=== PATIENT | female | born 1980 | race Caucasian/White ===

== ENCOUNTER 2025-03-13 09:15 | Outpatient (RCR) | payer MEDICARE, SELFPAY ==
[2025-03-10 11:04] VITALS: BP 116/60; PULSE 80; TEMP 37.2
[2025-03-10 11:59] VITALS: BMI 21.1
--- NOTE | 2025-03-10 16:31 | PC.ADMIT ---
Patient is a 44 year old partnered female who was referred to [facility] by [facility] unit where she was admitted from 02/18-02/27/25 secondary to severe depression with SI plan to overdose on prescription medication. As part of her discharge plan from the hospital patient agreed to have her neighbor hold on to her prescription medications as a precaution. 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 Patient reports neurologist placed 3 blind patches that were ineffective. 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 Supports, My brother, some friends, and my therapist. Sees therapist twice a week. Patient also reports she has a girlfriend who she has been seeing for the past two years. Patient is alert and oriented x4. She is calm and cooperative. She presented with depressed mood and affect. She reports passive SI however denied any plan or intent to kill herself. She was given a copy of her safety plan if needed. Patient denied any substance use. Medications updated with patient and discharge medication list which at times omits frequency of pain medication for migraines/GI medications etc. and appears to be redundant. Dr. West is aware.
--- NOTE | 2025-03-11 10:55 | HO.PHP ---
PHP staff member placed a referral for med management through [facility]. Pt. will be emailed with the appointment date and time in 1 to 3 business days.
--- NOTE | 2025-03-11 16:51 | P.HPPSP_ITS ---
HPI Date of Service: 03/10/25 Chief Complaint: bipolar Sources of Information: patient interviewed, chart reviewed and crisis/core team assessment reviewed HPI Narrative: Patient is a 45 yo female with history of Bipolar disorder, Eating disorder, chronic migraines, PCOS, who was referred to IOP as a stepdown from [facility] at [facility] for worsening depression/SI with plan to overdose on medication. Patient reports she had been ?obsessing? over suicidal plan for a month prior to hospitalization. Since discharge from hospital her neighbor has been holding onto her medications as part of her discharge plan. She is dispensed 1 week at a time. She is currently on Lamictal 400 mg as well as BuSpar, nortriptyline, clonazepam. She reports having a really hard time this last week and has been calling PHP to see about coming in earlier. She notes some of her depressive symptoms during to slowly creep back as well as getting ?little bursts of hypomania and experiences some mild paranoia when she is alone. Has a history of unspecified eating disorder with some restricting behaviors which have been more problematic recently and has been seeing a wire coiner. She denies any changes in her weight and has been eating 2 meals a day regularly. She denies any current thoughts of harming herself or others she reports some fleeting passive SI with no intent or plan last Sunday. Past Psychiatric History: [facility] x3: 01/2025; twice in 2003 for anorexia No prior PHP, respite, detox/rehab admissions SA: denies SIB: denies Aggression or antisocial behaviors: denies Denies legal history History of Anorexia with ARFID Psychiatrist: Tracy Buck [employer] Therapist: Irma Robles [facility] PCP:Laura Morrissey CNP Previous trials: Abilify, Zyprexa, Neurontin, Trileptal, prazosin, Seroquel, Anafranil, amitriptyline, Lamictal, Latuda, Prozac, Paxil, Zoloft, Wellbutrin CURRENT MEDICATIONS including: Buspirone 30 mg b.i.d. Lamotrigine 400 mg q.h.s. Latuda 20 mg daily Nortriptyline 100 mg q.h.s. Clonazepam 0.5 mg b.i.d. Metformin 1850 mg/d (split) Trazodone 50 mg q.h.s. 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, spontaneous Migraines Narrative: Seizures: denies Concussions/TBI: denies Nulligravid G0 LMP: IUD Ht: 5'10 Wt: 147 lbs ALL: Topemax, Seroquel, Anafranil, hydroxyzine, Belsomra, olmesartan, oysters, shellfish, nickel Surgical History (Updated 03/10/25 @ 10:54 by Patrizia Coats RN) H/O sinus surgery H/O removal of cyst Social History: Lives alone Substance History: Former smoker x4yrs, quit in 2009 No history of alcohol or illicit substance use Diagnostics Vital Signs (24Hr): BMI result Body Mass Index 21.1 Meds/Allergies Meds Home Medications ?Medication ?Instructions ?Recorded ?Confirmed ?Type bismuth subsalicylate 262 mg 1 tab PO Q1H PRN GI issue s 03/10/25 03/10/25 History chewable tablet buspirone 30 mg tablet 30 mg PO BID 03/10/25 History calcium carbonate 500 mg PO 03/10/25 History dextromethorphan-guaifenesin 30 1 tab PO Q12H PRN Regan estion 03/10/25 03/10/25 History mg-600 mg tablet extended [id number] hr diclofenac potassium 50 mg oral 50 mg PO DAILY PRN Raquel n 03/10/25 03/10/25 History powder packet dihydroergotamine See Rx Instructions .Route . COMPLEX 03/10/25 03/10/25 History famotidine 40 mg tablet 40 mg PO BID 03/10/25 History ketorolac 30 mg/mL (1 mL) 30 mg IM 03/10/25 History injection solution lamotrigine 200 mg tablet 400 mg PO BEDTIME 03/10/25 0 03/10/25 History levetiracetam 500 mg tablet 500 mg PO PRN Migraine Hea dache 03/10/25 History melatonin 5 mg tablet 5 mg PO BEDTIME PRN Insomnia 03/10/25 03/10/25 History metformin 1,000 mg tablet 1,000 mg PO DAILY 03/10/25 0 03/10/25 History metformin 850 mg tablet 850 mg PO DAILY 03/10/2503/26 History minocycline 100 mg capsule See Rx Instructions .Route .COMPLEX 03/10/25 03/10/25 History montelukast 10 mg tablet 10 mg PO DAILY 03/10/25 09/0 03/26 History naproxen sodium 220 mg capsule 220 mg PO BID PRN Pain 03/10/25 03/10/25 History nortriptyline 50 mg capsule 100 mg PO BEDTIME 03/10/25 03/10/25 History ondansetron 8 mg disintegrating 8 mg PO PRN Nausea 03/26 History tablet pantoprazole 40 mg tablet,delayed 40 mg PO BID 5 03/10/25 History release rizatriptan 10 mg tablet 10 mg PO DAILY PRN Headache 03/10/25 03/10/25 History sumatriptan succinate 6 mg/0.5 mL See Rx Instructions .Route .COMPLEX 03/10/25 03/10/25 History subcutaneous cartridge (refill) ubrogepant 100 mg tablet (Ubrelvy) See Rx Instructions .Route .COMPLEX 03/10/25 03/10/25 History Allergies Allergies Allergy/AdvReac Type Severity Reaction Status Date / Time clomipramine Allergy Difficulty Verified 03/10/25 11:02 breathing, dizziness, difficulty urinating. haloperidol (From Haldol) Allergy Unknown Verified 03/11/25 08:48 hydroxyzine Allergy Itching Verified 03/10/25 11:02 nickel Allergy Redness, Verified 03/10/25 11:02 itching, swelling. olmesartan Allergy Palpitation Verified 03/10/25 11:02 s. orphenadrine Allergy itching. Verified 03/10/25 11:02 quetiapine Allergy fainting. Verified 03/10/25 11:02 shellfish derived (shellfish) Allergy Unknown. Verified 03/10/25 11:02 suvorexant Allergy Itching. Verified 03/10/25 11:02 topiramate (From Topamax) Allergy Itching Verified 03/10/25 11:02 Mental Status Exam Mental Status Exam Narrative: Alert, oriented, in no acute distress. Calm, cooperative, engaged. No psychomotor agitation or neurovegetative retardation. Eye contact maintained. Mood depressed, affect dysthymic, blunted without tearfulness or lability. Speech normal, soft, flat without slowing. Thought process linear, coherent, delay in some responses. Thought content related to stressors, +transient hopelessness, +passive SI, denies any intention, urge or plan to harm self. Denies any aggressive ideation or HI. No paranoia or delusional content elicited. No evidence of psychosis. Insight and judgment fair. Assessment & Plan Assessment & Plan (1) Bipolar II disorder: Status: Acute Code(s): F31.81 - Bipolar II disorder (2) PTSD (post-traumatic stress disorder): Status: Acute Code(s): F43.10 - Post-traumatic stress disorder, unspecified Plan Admit to IOP VS reviewed: afebrile, BP 116/60;?80 bpm increase Latuda to 40 mg qd w evening meal continue other regular medications for now Routine lab work as indicated EKG, routine for baseline QTc for medication considerations as indicated UDS as indicated MassPat reviewed Continue to monitor as per protocol Patient educated on: diagnosis and medication risk/benefits Informed Consent: understands Reason for continued partial hosp. stay Substantial Risk for: inability to function and med/psych decompensation Certification I certify that the patient needs IOP Services for a minimum of 9 hours per week of therapeutic services. I certify the patient is experiencing symptoms of such intensity that they are unable to be safely treated in a less intensive setting and would otherwise require admission to a more intensive level of care. Time Spent With Patient Time: Total time managing care of this patient today __60__ minutes.
--- NOTE | 2025-03-12 14:40 | HO.PHP ---
Client case was reviewed and opened in teams.
--- NOTE | 2025-03-12 15:36 | HO.PHP ---
PHP staff member spoke to Mena through [facility] in regards to setting up an appointment for [facility] for med management. The appointment is scheduled for Sunday, March 30, 2025 at 2:30 PM with Shruti Perez in person at [address] [place] [address] in [place], [place] [address] .
--- NOTE | 2025-03-13 18:40 | P.PNPSP_ITS ---
Subjective Subjective Date of Service: 03/13/25 Reason For Visit: bipolar Interim History: Patient seen for follow-up, anticipating discharge at the end of program today.? Says she has work and travel next week, also [employer] holidays approaching. Reports mood is better , says she had only one crying spell last week. No other issues. Says she has not had occurrences of SI so it's been a lot better . She attributes improvements to Latuda, however is still having some side effects, which have been mild this week but persistent - with difficult sleeping and fatigue. She is agreeable to backing dose a few hours earlier in the evening (taking just before supper) and will plan to lower the dose to 30 mg for a week before returning to 40 mg. Has been Reports no acute issues or concerns. Medication compliant, medications well- tolerated. Denies any adverse effects.? Mood is stable.? Denies any hopelessness or SI. Denies thoughts of harming self or others at this time. Denies any aggressive ideation or HI. Denies any paranoia or AH or VH. Sleep, appetite, energy stable. Medication Compliance: Yes Side effects from medications: No Attending Groups: Yes Review of Systems Acute medical concerns: No Mental Status Exam Mental Status Exam Narrative: Alert, oriented, in no acute distress. Calm, cooperative. Mood stable, affect anxious, otherwise appropriate. Speech normal. Thought process linear, coherent. Thought content related to stressors, future-oriented, denies any helplessness, hopelessness or SI.? No aggressive ideation or HI. No paranoia or delusional content elicited. No evidence of psychosis. Insight and judgment fair-good. Diagnostics Vital Signs (24Hr): BMI result Body Mass Index 21.1 Assessment & Plan Assessment & Plan (1) Bipolar II disorder: Status: Acute Code(s): F31.81 - Bipolar II disorder (2) PTSD (post-traumatic stress disorder): Status: Acute Code(s): F43.10 - Post-traumatic stress disorder, unspecified Assessment and Plan: Discharge from [facility] Continue regular medications? Refills sent to pharmacy Will defer further medication management to outpatient provider *Safety plan reviewed *Discharge diagnoses, treatment course, discharge plan have been reviewed with patient (including medication regime, medication management, potential side effects) as well as treatment rationale were also revisited *Discharge paperwork signed and given to patient, copy sent for scanning to chart Plan I certify that the patient needs IOP Services for a minimum of 9 hours per week of therapeutic services. I certify the patient is experiencing symptoms of such intensity that they are unable to be safely treated in a less intensive setting and would otherwise require admission to a more intensive level of care. Patient educated on: diagnosis and medication risk/benefits Informed Consent: understands Reason for contiued partial hosp. stay Substantial Risk for: stable for discharge Certification I certify that the patient needs IOP Services for a minimum of 9 hours per week of therapeutic services. I certify the patient is experiencing symptoms of such intensity that they are unable to be safely treated in a less intensive setting and would otherwise require admission to a more intensive level of care. Total time managing care of this patient today _30___ minutes. Discharge Plan Discharge Attending provider: Nicki West Medications: New lurasidone 40 mg tablet 40 mg PO QPM Qty: 15 0RF Rx Instructions: must administer with food (at least 350 calories) lurasidone 60 mg tablet 30 mg PO QPM 8 Days Qty: 4 0RF Rx Instructions: must administer with food (at least 350 calories) Continued famotidine 40 mg Tablet 40 mg PO BID ketorolac 30 mg/mL (1 mL) solution 30 mg IM buspirone 30 mg Tablet 30 mg PO BID Rx Instructions: take in the AM and mid afternoon. bismuth subsalicylate 262 mg Tablet,Chewable 1 tab PO Q1H PRN (Reason: GI issues) Rx Instructions: do not exceed 16 tabs per 24 hrs calcium carbonate 500 mg calcium (1,250 mg) Tablet,Chewable 500 mg PO Rx Instructions: As needed for heartburn. dextromethorphan-guaifenesin 30-600 mg Tablet Extended Release 12 Hr 1 tab PO Q12H PRN (Reason: Congestion) diclofenac potassium 50 mg Powder In Packet 50 mg PO DAILY PRN (Reason: Pain) Rx Instructions: must be taken on empty stomach with water only lamotrigine 200 mg Tablet 400 mg PO BEDTIME levetiracetam 500 mg Tablet 500 mg PO PRN (Reason: Migraine Headache) metformin 850 mg Tablet 850 mg PO DAILY Rx Instructions: Take with dinner metformin 1,000 mg Tablet 1,000 mg PO DAILY Rx Instructions: Take with breakfast. melatonin 5 mg Tablet 5 mg PO BEDTIME PRN (Reason: Insomnia) minocycline 100 mg Capsule See Rx Instructions .ROUTE .COMPLEX Rx Instructions: See the new instructions. rizatriptan 10 mg Tablet 10 mg PO DAILY PRN (Reason: Headache) sumatriptan succinate 6 mg/0.5 mL Cartridge See Rx Instructions .ROUTE .COMPLEX Rx Instructions: Take o.5 ml under the skin at onset of migraine. May repeat in 2 hours as needed. Max 2 doses in 24 hours. ondansetron 8 mg Tablet,Disintegrating 8 mg PO PRN (Reason: Nausea) Rx Instructions: Take as needed for nausea pantoprazole 40 mg Tablet,Delayed Release (Dr/Ec) 40 mg PO BID montelukast 10 mg Tablet 10 mg PO DAILY nortriptyline 50 mg Capsule 100 mg PO BEDTIME naproxen sodium 220 mg Capsule 220 mg PO BID PRN (Reason: Pain) Ubrelvy 100 mg Tablet See Rx Instructions .ROUTE .COMPLEX Rx Instructions: Take one tablet on onset of migraine may repeat once time in 2 hours. dihydroergotamine 0.725 mg/pump act. (4 mg/mL) [place],Non-Aerosol See Rx Instructions .ROUTE .COMPLEX Rx Instructions: 4 mg by nasal route once at start of headache, can repeat in one hour if needed. Max 2 doses in 24 hours and 3 doses a week. Changed clonazepam 0.5 mg Tablet,Disintegrating 0.5 mg PO TID Qty: 30 0RF Rx Instructions: Two times a day as needed once in the morning and once in the afternoon. Discontinued lurasidone [Latuda] 20 mg Tablet 20 mg PO QPM Rx Instructions: must administer with food (at least 350 calories) trazodone 50 mg Tablet 50 mg PO BEDTIME Stand Alone Forms: Patient Portal Discharge page Patient Education: Depression (ED), Depression (DC) Print Language: Cook Islander
== END 2025-03-13 23:59 | disposition home or self-care (01) ==
LOC: HO.IOP 09:15
PROVIDERS: Visit Provider Psychiatry & Neurology Psychiatry
DX: F31.81 Bipolar II disorder (principal); F43.10 Post-traumatic stress disorder, unspecified; Z79.899 Other long term (current) drug therapy
CPT/HCPCS: 90791; S9480

== ENCOUNTER → 2025-03-13 09:15 | Outpatient (BNV) | payer MEDICARE, MEDICAID, SELFPAY | PROVIDERS: Visit Provider Psychiatry & Neurology Psychiatry | DX: F31.81 Bipolar II disorder (principal); F43.10 Post-traumatic stress disorder, unspecified | CPT/HCPCS: 99213 ==

== ENCOUNTER → 2025-05-04 09:15 | Outpatient (BNV) | payer MEDICARE, MEDICAID, SELFPAY | PROVIDERS: Visit Provider Psychiatry & Neurology Psychiatry | DX: F31.81 Bipolar II disorder (principal); F43.10 Post-traumatic stress disorder, unspecified; F50.9 Eating disorder, unspecified | CPT/HCPCS: 90792 ==

== ENCOUNTER → 2025-05-15 12:42 | Outpatient (REF) | payer MEDICARE, MEDICAID, SELFPAY ==
--- NOTE | 2025-05-15 12:51 | ECG_ITS ---
Test Reason : R/O QTC PROLONGNATION Blood Pressure : */* mmHG Vent. Rate : 79 BPM Atrial Rate : 79 BPM P-R Int : 164 ms QRS Dur : 88 ms QT Int : 390 ms P-R-T Axes : 73 88 55 degrees QTcB Int : 447 ms Normal sinus rhythm Normal ECG No previous ECGs available Referred By: Nicki West Electronically Signed By: DAVID FLETCHER MD
[2025-05-15 13:09] LABS: MANUAL DIFF FLAG NO
[2025-05-15 13:38] LABS: Hematocrit 35.7 % (37.0-47.0); Hemoglobin 11.2 g/dl (12.0-16.0); Imm Gran Abs Auto 0.01 X10*3/uL (0.00-0.03); Imm Gran Pct Auto 0.2 % (0.0-0.4); Lymphocytes Absolute Auto 1.7 X10*3/uL (1.2-4.9); Mean Corpuscular HGB Conc 31.4 g/dl (31.0-35.0); Mean Corpuscular Hemoglobin 27.0 pg (27.0-33.0); Mean Corpuscular Volume 86.0 fL (80.0-98.0); NRBC Abs Auto 0.000 X10*3/uL (0.0-0.012); NRBC Pct Auto 0.0 /100WBC (0.0-0.2); Platelet Count 334 X10*3/uL (160-400); Red Blood Count 4.15 X10*6/uL (4.20-5.50); White Blood Count 5.3 X10*3/uL (4.8-10.8)
[2025-05-15 14:14] LABS: Anion Gap 12 (12-20); Blood Urea Nitrogen 12 mg/dL (9-16); Carbon Dioxide 30 mmol/L (22-29); Chloride 103 mmol/L (96-108); Estimated Glomerular Filt Rate > 60; Potassium 3.7 mmol/L (3.3-5.1); Sodium 141 mmol/L (135-145)
[2025-05-15 14:15] LABS: Alanine Aminotransferase 20 U/L (0-31); Albumin Level 4.9 g/dL (3.5-5.0); Alkaline Phosphatase 70 U/L (39-117); Aspartate Amino Transferase 29 U/L (5-31); Calcium 9.6 mg/dL (8.4-10.2); Iron 48 mcg/dL (30-160); Magnesium 2.0 mg/dL (1.6-2.6); Percent Iron Saturation 13 % (15-50); Total Iron Binding Capacity 356 mcg/dL (228-428); Total Protein 7.7 g/dL (6.5-8.0); Unsaturated Iron Binding 308 ug/dL
[2025-05-15 14:23] LABS: Free T4 (Free Thyroxine) 1.03 ng/dL (0.71-1.85); Thyroid Stimulating Hormone 2.89 uIU/mL (0.32-4.0)
[2025-05-15 14:29] LABS: Folate 13.0 ng/mL (> or = 4.0); Vitamin B12 293 pg/mL (200-900)
[2025-05-15 15:00] LABS: Syphilis Screen Nonreactive (Nonreactive)
--- OUTSIDE RECORDS SUMMARY | 2025-05-15 18:35 | XMS_ITS | Encounter Summary ---
Author Organization [facility] Address [address] [place] [address] Care Team Providers Care Toggler Name Role Phone DagoLinwood ELLIE Primary Care Provider [phone] Encounter Details Date Type Department Care Team (Late st Contact Info) Description 05/05/2024 Scanned Document [facility] [address] [facility] [address] [place] [id number] Rebecca Garcia MD [address] [facility] [address] [place] [address] Social History Tobacco Use Types Packs/Day Years Used Date Smoking Tobacco: Former Cigarettes Smokeless Tobacco: Never Alcohol Use Standard Drinks/Week Comments Never 0 (1 standard drink = 0.6 oz pur e alcohol) PHQ-2 Answer Date Recorded PHQ-2 Total Score 2 04/30/2024 [facility] [place] of Occupat ional Health - Occupational Stress Questionnaire Answer Date Recorded Do you feel stress - tense, restless, nervous, or anxious, or unable to sleep at night because your mind is troubled all the time - these days? To some extent 04/30/2024 Physical Activity Answer Date Recorded On average, how many days pe r week do you engage in moderate to strenuous exercise (like a brisk walk)? 0 days 04/30/2024 On average, how many minutes do you exercise per day at this level? 0 min 04/30/2024 Comments No Sex and Gender Information Value Date Recorded Sex Assigned at Female 04/28/2024 11:08 PM EDT Legal Sex Female 3:48 PM EDT Gender Identity Female 04/28/2024 11:08 PM EDT Sexual Orientation Homosexual (lesbian or nelson) 1 11:08 PM EDT documented as of this encounter Plan of Treatment Not on file documented as of this encounter Visit Diagnoses Not on filedocumented in this encounter Care Teams Toggler Relationship Specialty Start Date End Date Linwood Loza NP [address] [place] [address] PCP - General 03/12/24 documented as of this encounter
--- OUTSIDE RECORDS SUMMARY | 2025-05-15 18:35 | XMS_ITS | Encounter Summary ---
Author Organization [facility] Address [address] [place] [address] Care Team Providers Care Fur Blower Name Role Phone Linwood Loza NP Primary Care Provider [phone] Encounter Details Date Type Department Care Team (Late st Contact Info) Description 04/04/2024 Scanned Document [facility] [address] [facility] [address] [place] [address] Rebecca Garcia MD [address] [facility] [place] [address] [place] [address] Social History Tobacco Use Types Packs/Day Years Used Date Smoking Tobacco: Never Assessed Comments Unknown Sex and Gender Information Value Date Recorded [...] on filedocumented in this encounter Care Teams Fur Blower Relationship Specialty Start Date End Date Linwood Loza NP [address] [place] [address] PCP - General 03/12/24 documented as of this encounter
--- OUTSIDE RECORDS SUMMARY | 2025-05-15 18:36 | XMS_ITS | Encounter Summary ---
Author Organization [facility] Address [address] [place] [address] Care Team Providers Care Global Clinical Leader Name Role Phone DagoLinwood ELLIE Primary Care Provider [phone] Encounter Details Date Type Department Care Team (Late st Contact Info) Description 07/24/[address] [facility] [address] [facility] [address] [place] [id number] Rebecca Garcia MD [address] [facility] [address] [place] [address] Social History Tobacco Use Types Packs/Day Years Used Date Smoking Tobacco: Former Cigarettes Smokeless Tobacco: Never Comments:Quit 2005 Alcohol Use Standard Drinks/Week Comments Never 0 (1 standard drink = 0.6 oz pur e alcohol) PHQ-2 Answer Date Recorded PHQ-2 Total Score 2 05/17/2024 [employer] [place] of Occupat ional Health - Occupational Stress [...] on filedocumented in this encounter Care Teams Global Clinical Leader Relationship Specialty Start Date End Date Linwood Loza NP [address] [place] [address] PCP - General 03/12/24 documented as of this encounter
--- OUTSIDE RECORDS SUMMARY | 2025-05-15 18:36 | XMS_ITS | Encounter Summary ---
Author Organization [facility] Address [address] [facility] [address] [place] [address] Phone Care Team Providers Care Social Media Marketing Analyst Name Role Phone Cindy Mansfield ACO COORDINATOR Primary Care Provider + Laura Deras ACO COORDINATOR Primary Care Provider + Denisse Barreto PA-C Unavailable [phone] Laura Deras ACO COORDINATOR Primary Care Provider + Encounter Details Date Type Department Care Team (Late st Contact Info) Description 08/08/2024 [facility] [address] [place], [place] [id number] Social History Tobacco Use Types Packs/Day Years Used Date Smoking Tobacco: Former Cigarettes Q uit: 2004 Smokeless Tobacco: Never Alcohol Use Standard Drinks/Week Comments Not Currently 0 (1 standard drink = 0.6 oz pur e alcohol) Child or Family Care Answer Date Record ed Do you have problems with on e of the following making it difficult for you to work, study, or receive health care? No 06/15/2024 Education Answer Date Recorded Are you interested in help w ith more adult education (for example, completing high school, GED, job training, learning the Maltese language, technical skills, or developing parenting skills)? No 06/15/2024 Are you concerned about learning? Not on file 06/15/2024 No 06/15/2024 Yes 06/15/2024 Food Answer Date Recorded Within the past 6 months we worried whether our food would run out before we got money to buy more. Sometimes True 024 Within the past 6 months the food we bought just didn't last and we didn't have enough money to get more. Never True 06/01 Residential Stability Answer Date Recor ded What is your housing situation today? I have a place to live today, but I am worried about losing it in the next 3 months 06/15/2024 How many times have you move d in the past 12 months? Zero (I did not move) 06/15/2024 Paying for Meds Answer Date Recorded Do you have trouble paying for medicines? No 06/15/2024 Paying Utility Bills Answer Date Record ed Do you have trouble paying your heating or elect ricity bill? Yes 06/15/2024 Transportation Answer Date Recorded Has the lack of transportati on kept you from medical appointments or from getting medications? No 06/15/2024 Unemployment Answer Date Recorded Are you currently unemployed or working on a part-time or temporary basis, and looking for work? No 06/15/2024 Digital Access Answer Date Recorded No 06/15/2024 Yes 06/15/2024 Do you have reliable internet access at home? Ye s 06/15/2024 Do you have a device (e.g., phone, tablet, computer) with a working camera? Yes 06/15/2024 Intimate Partner Violence Answer Date R ecorded Are you denied basic needs s uch as food, clothing, or medical care? No 06/30/2024 In the past 12 months have y ou been in a relationship with a person who hurts, threatens, or tries to control you? No 06/30/2024 Are you denied basic needs s uch as food, clothing, or medical care? No 06/30/2024 In the past 12 months have y ou been in a relationship with a person who hurts, threatens, or tries to control you? No 06/30/2024 Comments No Sex and Gender Information Value Date Recorded Sex Assigned at Not on file Legal Sex Female 2:43 PM EDT Gender Identity Not on file Sexual Orientation Not on file documented as of this encounter Plan of Treatment Upcoming Encounters Date Type Department Care Team (Late st Contact Info) Description 07/13/2025 2:30 PM EST Office Visit [facility] [address] [place] [id number] Unknown, Unknown, Rebecca Farmer, CHIEF RADIOLOGIC TECHNOLOGIST [address] [place] [address] 11/16/2025 10:15 AM EDT Office Visit [facility] [address] [facility] 3rd Floor, [address] [place] [address] Andrews Brown DO [address] [facility] [address] [place] [address] documented as of this encounter Visit Diagnoses Not on filedocumented in this encounter Additional Health Concerns Assessment Noted Time PHQ-2 Depression Total Score: 2 06/30/20 24 12:52 PM EST documented as of this encounter Care Teams Social Media Marketing Analyst Relationship Specialty Start Date End Date Cindy Mansfield NP [address] [place] [phone] PCP - General Nurse Practitioner 06/20/24 08/31/24 Laura Deras NP [address] [place] [address] PCP - General Nurse Practitioner 09/04/24 02/16/25 Laura Deras NP [address] [address] PCP - General Nurse Practitioner 02/17/25 Denisse Barreto PA-C [address] [place] [address] Physician Nozzle And Sleeve Worker Physician Nozzle And Sleeve Worker 11/05/24 documented as of this encounter Additional Source Comments The information contained in this document represents components of the legal health record. It is not the complete legal health record.[facility]
--- OUTSIDE RECORDS SUMMARY | 2025-05-15 18:36 | XMS_ITS | Clinical Summary ---
Author Organization [facility] Address [address] [place] [address] Care Team Providers Care Ecological Technical Officer Name Role Phone Dago Linwood ELLIE Primary Care Provider Allergies Active Allergy Reactions Criticality Noted Date Comments Clomipramine Unknown/Patient and Family Unable to Define Medium 04/30/2024 Olmesartan Unknown/Patient and Family Unable to Define Medium 04/30/2024 Hydroxyzine Itching Low 01/03/2021 Nickel Unknown/Patient and Family Unable to Define,Rash/Dermatit is Medium 10/11/2021 + allergy skin test Other Reaction(s): Not available + allergy skin test Orphenadrine Hives,Itching,Other (See Comments) Medium 07/09/2013 Quetiapine Anaphylaxis,GI Intolerance/Nausea/V omiting,Hives,Unknow n/Patient and Family Unable to Define,Other (See Comments) High 06/20/2012 I fainted. Other reaction(s): Other (See Comments) fainted fainted fainted Other Reaction(s): Not available FAINTING fainted fainted I fainted. Other reaction(s): Other (See Comments) fainted fainted FAINTING fainted Seroquel Quetiapine Fumarate Other (See Comments) 2023 fainted Shellfish Protein-Containing Drug Products Other (See Comments) Low 10/06/2021 Suvorexant Other (See Comments) Low 06/17/2024 Topiramate Unknown/Patient and Family Unable to Define Medium 04/30/2024 Medications levocetirizine (XYZAL) 5 MG tablet TAKE 1 TABLET BY MOUTH EVERY DAY NEEDED FOR ITCHING 09/27/202 4 Active metFORMIN (GLUCOPHAGE) 1000 MG tablet Take 1 tablet (1,000 mg total) by mouth. Active metFORMIN (GLUCOPHAGE) 850 MG tablet Take 1 tablet (850 mg total) by mouth. 4 Active minocycline (MINOCIN) 100 MG capsule 2 capsules (200 mg total). 4 Active montelukast (SINGULAIR) 10 MG tablet Take 1 tablet (10 mg total) by mouth. Active nortriptyline (PAMELOR) 50 MG capsule Take 2 capsules (100 mg total) by mouth. 4 Active onabotulinum Toxin Type A (BOTOX) 200 units Recon Soln injection every 12 (twelve) weeks. Active B-D 3CC LUER-JOSEF SYR 45GK6-9/2 22G X 1-1/2 3 ML Misc TO BE USED WITH KETOROLAC 4 Active Ubrelvy 100 MG tablet TAKE 1 TABLET BY MOUTH AT ONSET. MAY REPEAT 1 TIME IN 2 HOURS 4 Active busPIRone (BUSPAR) 30 MG tablet Take 1 tablet (30 mg total) by mouth 2 times a day. 4 Active lamoTRIgine (LaMICtal) 200 MG tablet Take 2 tablets (400 mg total) by mouth. Total 350mg daily 4 Active levETIRAcetam (KEPPRA) 250 MG tablet Take 1.5 tablets (375 mg total) by mouth Once before discharge. 4 Active naproxen sodium (ALEVE) 220 mg tablet Take 1 tablet (220 mg total) by mouth Once before discharge. Active PANTOprazole (PROTONIX) 40 MG EC tablet Take 1 tablet (40 mg total) by mouth 2 times a day. 4 Active rizatriptan (MAXALT) 10 MG tablet Take 1 tablet (10 mg total) by mouth daily as needed. Active SUMAtriptan succinate (IMITREX STATDOSE) 6 MG/0.5ML injection ADMINISTER 0.5 ML UNDER THE SKIN AT ONSET OF MIGRAINE. MAY REPEAT IN 2 HOURS NEEDED. MAX 2 DOSES IN 24 HOURS 4 Active Multiple Vitamin (Multi-Vitamin) tablet Take 1 tablet by mouth daily. Active LORazepam (ATIVAN) 1 MG tablet Take 1 tablet (1 mg total) by mouth 4 times daily (every 6 hours) as needed. Active levonorgestrel (Mirena, 52 MG,) 20 mcg/24hr IUD 1 Intra Uterine Device. 4 Active hydrocortisone 2.5 % cream APPLY A THIN LAYER TO THE AFFECTED AREA(S) OF THE FACE BY TOPICAL ROUTE 2 TIMES PER DAY X 10 DAYS 4 Active famotidine (PEPCID) 20 MG tablet Take 1 tablet (20 mg total) by mouth 2 times a day. 4 Active ketorolac (TORADOL) 30 MG/ML injection 4 Active albuterol (PROVENTIL HFA; VENTOLIN HFA) 108 (90 Base) MCG/ACT inhaler Inhale 2 puffs Once before discharge. Active clonazePAM (KlonoPIN) 0.5 MG disintegrating tablet Take 1 tablet (0.5 mg total) by mouth. Active dextromethorphan-g uaiFENesin (MUCINEX DM) 30-600 MG per 12 hr tablet Take 1 tablet by mouth every 12 hours. Active diclofenac potassium (CAMBIA) 50 MG packet USE 1 PACKET AND MIX WITH GLASS OF WATER TO DRINK EVERY 8 HOURS NEEDED 4 Active Dihydroergotamine Mesylate HFA (Trudhesa) 0.725 MG/ACT Aero Soln 1 spray (0.725 mg) into each nostril (total of 2 sprays per dose); may repeat as needed after 1 hour for a total of 4 sprays (2 doses). Maximum: 4 sprays (2 doses) per 24 hours. This is for 90 day supply 4 Active lurasidone (LATUDA) 20 MG Tab tablet Take 1 tablet (20 mg total) by mouth. 5 Active dihydroergotamine (DHE) 1 MG/ML injection 5 Active ondansetron (ZOFRAN) 8 MG tablet Take 1 tablet (8 mg total) by mouth every 8 hours as needed for nausea 5 Active Hospital, Clinic, or Other Facility Administered Medication Ordered Dose Route Frequency Start Date End Date Status onabotulinum Toxin Type A (BOTOX) 200 units injection 200 UnitsIndications:Chronic migraine without aura, intractable, without status migrainosus 200 Units ID Once 04/23/2025 04/23/2025 Ended Active Problems No known active problems Encounters Date Type Department Care Team Description 04/23/2025 1:40 PM EDT Procedure visit [address] [place] [address] Samanta Gilbert PA-C Chronic migraine without aura, intractable, without status migrainosus (Primary Dx) 04/23/2025 Travel 03/05/2025 11:00 AM EDT Telemedicine [address] [place] [address] Rebecca Garcia MD Chronic migraine without aura, intractable, without status migrainosus (Primary Dx); CSF leak; Positional headache; EDS (Ute-Danlos syndrome) ; Migraine with aura, intractable, without status migrainosus ; Medication overuse headache 03/05/2025 Travel from Last 3 Months Social History Tobacco Use Types Packs/Day Years Used Date Smoking Tobacco: Former Cigarettes Smokeless Tobacco: Never Tobacco Cessation:Counseling Given: Not Answered Comments:Quit 2005 Alcohol Use Standard Drinks/Week Comments Never 0 (1 standard drink = 0.6 oz pur e alcohol) PHQ-2 Answer Date Recorded PHQ-2 Total Score 4 03/04/2025 [facility] [place] of Occupat ional Health - Occupational Stress [...] (lesbian or nelson) 1 11:08 PM EDT Last Filed Vital Signs Vital Sign Reading Time Taken Comments Blood Pressure 126/76 04/23/2025 1:43 PM EDT Pulse 94 04/23/2025 1:43 PM EDT Temperature 36.9 C (98.5 F) 11/11/2024 11:20 AM EDT Respiratory Rate 18 04/23/2025 1:43 PM EDT Oxygen Saturation 99% 04/23/2025 1:43 PM EDT Inhaled Oxygen Concentration - - Weight 64.4 kg (142 lb) 04/23/2025 1:43 PM EDT Height 175.3 cm (5' 9 ) 01/15/2025 1:59 PM EDT Body Mass Index 20.97 01/15/2025 1:59 PM EDT Plan of Treatment Health Maintenance Due Date Last Done Comments Hepatitis C Virus Screening 1979 DTaP/Tdap/Td Vaccines (1 - Tdap) 1998 Hepatitis B Vaccines (1 of 3 - 19+ 3-dose series) 1998 Pneumococcal Vaccine: Pediat tanna (0-5 Years) and At-Risk Patients (6 to 49 Years) (1 of 2 - PCV) 1998 Pap Smear (Ages 21-65) 2000 Mammogram 2019 Colonoscopy 2024 Influenza Vaccine 01/30/2025 03/17/2024, , 02/28/2021, Additional history exists COVID-19 Vaccine ( - 2024-2 6 season) 2025 04/28/2021, 08/17/2020, 07/20/2020 HIV Screening Completed 06/30/2024 Insurance MEDICARE PART A & B [facility] Care Teams Ecological Technical Officer Relationship Specialty Start Date End Date Linwood Loza NP [address] [place] [address] PCP - General 03/12/24
--- OUTSIDE RECORDS SUMMARY | 2025-05-15 18:36 | XMS_ITS | Clinical Summary ---
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 Name Role Phone Denisse Barreto PA-C Unavailable [phone] Laura Deras NP Primary Care Provider + Allergies Active Allergy Reactions Criticality Noted Date Comments Clomipramine GI Upset Medium 04/24/2024 Other Reaction(s): Unknown/Patient and Family Unable to Define Hydroxyzine Itching 01/03/2021 Nickel Rash Low 10/11/2021 Other Reaction(s): Not available + allergy skin test Olmesartan Unknown,Palpitations ,Rash High 07/09/2013 Other Reaction(s): Not available Orphenadrine Hives,Itching,Other (See Comments) Medium 07/09/2013 Quetiapine Anaphylaxis,Hives,Un known,Other (See Comments),GI Upset High 06/20/2012 Other Reaction(s): Not available FAINTING fainted fainted I fainted. Other reaction(s): Other (See Comments) fainted fainted Shellfish Containing Products Unknown 10/06/2021 Other Reaction(s): Other (see comments) Tested + on allergy testing Suvorexant Itching Low 10/08/2020 Other Reaction(s): Not available Topiramate Hives,Itching,Rash Medium 06/20/2012 Other Reaction(s): Unknown/Patient and Family Unable to Define Medications * This document contains information received from the source organization and may not represent a complete record from that organization. diclofenac potassium (CAMBIA) 50 mg PwPk daily as needed. 03/24/20 Active TRUDHESA 0.725 mg/pump act. (4 mg/mL) Nittany 02/21/20 Active ketorolac (TORADOL) 30 mg/mL (1 mL) injection as needed. 03/24/20 Active nortriptyline (PAMELOR) 50 MG capsule Take 100 mg by mouth nightly at bedtime. Active montelukast (SINGULAIR) 10 mg tablet Take 1 tablet by mouth every morning. 04/22/20 Active minocycline (MINOCIN) 100 MG capsule 04/15/20 Active pantoprazole (PROTONIX) 40 MG tablet Take 1 tablet by mouth 2 (two) times a day. 04/21/20 Active rizatriptan (MAXALT) 10 MG tablet Take 10 mg by mouth as needed. 03/24/20 Active SUMAtriptan succinate (IMITREX) 6 mg/0.5 mL PnIj ADMINISTER 0.5 ML UNDER THE SKIN AT ONSET OF MIGRAINE. MAY REPEAT IN 2 HOURS NEEDED. MAX 2 DOSES IN 24 HOURS 03/25/20 Active BD LUER-JOSEF SYRINGE 3 mL 22 x 1 1/2 Syrg TO BE USED WITH KETOROLAC 02/08/20 Active UBRELVY 100 mg tablet TAKE 1 TABLET BY MOUTH AT ONSET. MAY REPEAT 1 TIME IN 2 HOURS 04/13/20 Active dextromethorphan-g uaiFENesin (MUCINEX DM) 30-600 mg per 12 hr tablet Take 1 tablet by mouth every 12 (twelve) hours. Active levonorgestreL (MIRENA) 21 mcg/24hr (up to 8 yrs) 52 mg intrauterine device 1 Device by Intrauterine route. Active albuterol 90 mcg/actuation inhaler Inhale 2 puffs into the lungs as needed for wheezing or shortness of breath/dyspnea. Active naproxen sodium (ALEVE) 220 MG tablet Take 220 mg by mouth as needed for pain (specific location in comments), headache or fever. Active safety needles (BD SAFETYGLIDE NEEDLE) 22 gauge x 1 1/2 Ndle To be used with ketorolac. 11/16/19 Active ondansetron (ZOFRAN-ODT) 8 MG disintegrating tablet Take 8 mg by mouth as needed for nausea. Active clonazePAM (KLONOPIN) 0.5 MG disintegrating tablet Take 0.5 mg by mouth 2 (two) times a day (once in the morning and once in the afternoon). Active dihydroergotamine 0.725 mg/pump act. (4 mg/mL) SpryIndications:mi graine 4 mg by Nasal route once. At start of headache, can repeat in 1 hour if needed max 2 doses in 24hrs and 3 dose/week Indications: a migraine headache Active calcium carbonate 500 mg (200 mg elemental) chewable tablet Take 1 tablet by mouth as needed for heartburn. Active bismuth subsalicylate 262 mg Chew Take 524 mg by mouth every hour as needed. Active busPIRone (BUSPAR) 30 MG tablet Take 1 tablet (30 mg total) by mouth 2 (two) times a day. In AM and mid afternoon 02/28/20 Active famotidine (PEPCID) 40 MG tablet Take 1 tablet (40 mg total) by mouth 2 (two) times a day. 02/28/20 Active lamoTRIgine (LAMICTAL) 200 MG IMMEDIATE release tablet Take 2 tablets (400 mg total) by mouth nightly at bedtime. 28 tablet 1 02/28/20 25 Active metFORMIN (GLUCOPHAGE) 1000 MG tablet Take 1 tablet (1,000 mg total) by mouth daily with breakfast. 02/28/20 25 Active metFORMIN (GLUCOPHAGE) 850 MG tablet Take 1 tablet (850 mg total) by mouth daily with dinner. 02/28/20 25 Active levETIRAcetam (KEPPRA) 500 MG tablet Take 1 tablet (500 mg total) by mouth as needed (migraine). 02/28/20 25 Active lurasidone (LATUDA) 20 mg tablet Take 1 tablet (20 mg total) by mouth daily with dinner. 14 tablet 1 02/28/20 25 Active melatonin 5 mg Tab Take 1 tablet (5 mg total) by mouth nightly at bedtime as needed (Insomnia first line). 14 tablet 1 02/28/20 25 Active traZODone (DESYREL) 50 MG tablet Take 1 tablet (50 mg total) by mouth nightly at bedtime. 14 tablet 1 02/28/20 25 Active Active Problems Problem Noted Date Diagnosed Date Mental health problem 02/17/2025 Bipolar disorder, current episode depressed, sev ere 02/17/2025 Lower extremity edema 11/14/2024 Assessment & Plan (11/14/2024 10:41 AM EDT): I suggested wearing 20 to 30 mm knee-high stockings. I will follow-up with the patient in 1 years time Iron deficiency anemia 07/04/2024 Assessment & Plan (07/04/2024 4:41 PM EST): Has taken PO supplements in the past with many side effects. Discussed iron transfusion to which she is amenable. Side effects and possible complications discussed. Order placed for med day stay and therapy plan for iron transfusion was initiated, she signed a consent while in office. I would like to further investigate the cause of her anemia, referral placed for hematology and I will evaluate for hemolytic anemia or bone marrow deficiency. 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 Managed by dermatology. Lichen sclerosus 06/30/2024 Esophageal dysmotility 06/30/2024 Nonrheumatic mitral valve regurgitation 06/30/20 24 Assessment & Plan (11/14/2024 10:40 AM EDT): This patient has trace to mild mitral and trace tricuspid insufficiency. These are essentially within normal limits EF is normal and there is no evidence of significant aneurysmal disease Assessment & Plan (08/08/2024 10:27 AM EST): As mentioned sure she had a last echo done 3 years ago I have updated this. Assessment & Plan (06/30/2024 5:37 PM EST): Previously managed by Cardiology in [place] and [place]. Referral placed for cardiology locally. Will check lipid panel today. Orders: Ambulatory referral to [facility] Cardiology Mild episode of recurrent major depressive disor jennifer 06/30/2024 Assessment & Plan (06/30/2024 5:37 PM EST): Managed by psychiatry but is interested in a different psychiatrist. Discussed our behavioral health services for short-term management while she establishes elsewhere. Orders: Ambulatory referral to [facility] Behavioral Health Anxiety 06/30/2024 Assessment & Plan (08/08/2024 10:28 AM EST): Definitely present here but stable Assessment & Plan (06/30/2024 5:37 PM EST): Currently stable. Managed by psychiatry. Orders: Ambulatory referral to [facility] Behavioral Health Avoidant-restrictive food intake disorder (ARFID ) 06/30/2024 Irritable bowel syndrome with diarrhea Assessment & Plan (06/30/2024 5:37 PM EST): Currently stable. Managed by GI. Mild intermittent asthma without complication Assessment & Plan (08/08/2024 10:28 AM EST): Present but totally stable Assessment & Plan (06/30/2024 5:37 PM EST): Currently stable on current meds. Endometriosis 06/30/2024 CSF leak 06/30/2024 Assessment & Plan (08/08/2024 10:28 AM EST): This patient had a repair for CSF leak Assessment & Plan (06/30/2024 5:37 PM EST): Has blood patch scheduled for next month. Managed by a specialist Encounters * This document contains information received from the source organization and may not represent a complete record from that organization. Date Type Department Care Team Description 03/06/2025 10:45 AM EDT Office Visit [facility] [address] [place] [id number] Cindy Mansfield, ASSISTANT DIRECTOR OF PLANT OPERATIONS Jasmeet Trinidad, PT Stress incontinence (Primary Dx); Generalized weakness from Last 3 Months Immunizations Immunization Administration Dates Next Due COVID-19 (Pre-04/23) Moderna Vaccine, mRNA, PF 04/28/2021,08/17/2020,07/20/2020 HPV9 07/17/2024,03/17/2024,01/08/2024 Influenza Quadrivalent Preservative Free IM 04/02,03/27/2018 Influenza Quadrivalent w/ Preservative IM 2020,03/15/2020,04/21/2019 Influenza Trivalent MDCK Pre servative Free IM 03/17/2024 Influenza, Unspecified Formulation 05/02/2022 PPD Test 11/24/2016 Tdap 02/04/2019 Family History Medical History Relation Comments Anxiety disorder Brother 1 Depression Brother 1 Anxiety disorder Brother 2 Depression Brother 2 Anxiety disorder Brother 3 Depression Brother 3 Depression Brother 4 Aortic aneurysm Father OCD Spectrum disorder Father Transient ischemic attack Maternal Grandfather Breast cancer Maternal Grandmother Breast cancer Mother Hyperlipidemia Mother Hypertension Mother Osteoarthritis Mother Rheumatoid arthritis Mother Anxiety disorder Sister Depression Sister Relation Status Comments Brother 1 Brother 2 Alive Brother 3 Alive Brother 4 Alive Father Maternal Grandfather Maternal Grandmother Mother Sister Social History Tobacco Use Types Packs/Day Years Used Date Smoking Tobacco: Former Cigarettes Q uit: 2003 Smokeless Tobacco: Never Tobacco Cessation:Counseling Given: Not Answered Alcohol Use Standard Drinks/Week Comments Not Currently [...] high school, GED, job training, learning the [place] language, technical skills, or developing parenting skills)? [...] as food, clothing, or medical care? No 02/17/2025 In the past 12 months have y ou been in a relationship with a person who hurts, threatens, or tries to control you? No 02/17/2025 Are you denied basic needs s uch as food, clothing, or medical care? No 02/17/2025 In the past 12 months have y ou been in a relationship with a person who hurts, threatens, or tries to control you? No 02/17/2025 Comments No Sex and Gender Information Value Date Recorded Sex Assigned at Not on file Legal Sex Female 2:43 PM EDT Gender Identity Not on file Sexual Orientation Not on file Last Filed Vital Signs Vital Sign Reading Time Taken Comments Blood Pressure 105/71 02/26/2025 6:10 PM EDT Pulse 97 02/26/2025 6:10 PM EDT Temperature 36.7 C (98.1 F) 02/26/2025 6:10 PM EDT Respiratory Rate 18 02/26/2025 6:10 PM EDT Oxygen Saturation 97% 02/26/2025 6:10 PM EDT Inhaled Oxygen Concentration - - Weight 66.2 kg (146 lb) 02/17/2025 7:30 PM EDT Height 177.8 cm (5' 10 ) 02/17/2025 7:30 PM EDT Body Mass Index 20.95 02/17/2025 7:30 PM EDT Plan of Treatment Upcoming Encounters Date Type Department Care Team (Late st Contact Info) Description 07/13/2025 2:30 PM EST Office Visit [facility] [address] [place] [address] Unknown, Unknown, MD Hirsch, Rebecca Carson, BUSINESS RISK ANALYST [address] [place] [address] 11/16/2025 10:15 AM EDT Office Visit [facility] [address], [address] [place] [address] Andrews Brown DO [address] [facility] [address] [place] [address] [id number] [email or web address] Health Maintenance Due Date Last Done Comments PNEUMOCOCCAL VACCINES (0-49 years) (1 of 2 - PCV) 1998 PAP SMEAR 01/21/2017 01/21/2014 COLOGUARD 2024 FIT TEST 2024 FOBT 2024 SIGMOIDOSCOPY 2024 VIRTUAL COLONOSCOPY 2024 INFLUENZA VACCINE (#1) 2025 , 05/02/2022, 02/28/2021, Additional history exists COVID-19 VACCINE ( - season) 2025 04/28/2021, 08/17/2020, 07/20/2020 DEPRESSION SCREENING 06/30/2025 06/30/2024 CREATININE LEVEL 02/17/2026 02/17/2025 SMOKING Hx and SMOKELESS TOBACCO SCREENING 02/17/2026 02/17/2025 MAMMOGRAM 09/05/2026 09/05/2024, 12/2024, 02/07/2024, Additional history exists Adult Td,Tdap Booster 02/04/2029 02/04/2019 LIPID PANEL 02/18/2030 02/18/2025, 01/0 08/2024, 12/30/2021 COLONOSCOPY 04/29/2034 04/29/2024 COLORECTAL CANCER SCREENING 04/29/2034 HEPATITIS C SCREENING Completed 06/30/2024 HIV ONE-TIME SCREENING (18-65 YEARS) Completed 06/30/2024 HEPATITIS A VACCINES Aged Out No long er eligible based on patient's age to complete this topic HIB VACCINES Aged Out No longer eligi ble based on patient's age to complete this topic IPV VACCINES Aged Out No longer eligi ble based on patient's age to complete this topic MENINGOCOCCAL VACCINES (ACWY) Aged Out No longer eligible based on patient's age to complete this topic MENINGOCOCCAL VACCINES (B) Aged Out N o longer eligible based on patient's age to complete this topic Medical Devices Not on file Procedures Procedure Name Priority Date/Time Associated Diagnosis Comments LAMOTRIGINE LEVEL Timed 02/18/2025 7:2 5 PM EDT FREE T4 Routine 02/18/2025 7:14 AM EDT 25-OH VITAMIN D Routine 02/18/2025 7:14 AM EDT HEMOGLOBIN A1C Routine 02/18/2025 7:14 AM EDT LIPID PANEL Routine 02/18/2025 7:14 AM EDT FOLATE Routine 02/18/2025 7:14 AM EDT TSH WITH REFLEX Routine 02/18/2025 7:14 AM EDT VITAMIN B12 Routine 02/18/2025 7:14 AM EDT HCG, SERUM QUALITATIVE STAT 02/17/2025 12:50 PM EDT ETHANOL, BLOOD STAT 02/17/2025 12:50 PM EDT LFTS (HEPATIC PANEL) STAT 02/17/2025 12:50 PM EDT BASIC METABOLIC PANEL (BMP) STAT 02/17/2025 12:50 PM EDT CBC AND DIFFERENTIAL STAT 02/17/2025 12:50 PM EDT TOXICOLOGY SCREEN, URINE STAT 02/17/2025 12:12 PM EDT HEPATITIS C ANTIBODY, QUALITATIVE Routine 06/30/2024 2:20 PM EST Need for hepatitis C screening test ENDOSCOPY, COLON 04/29/2024 12:4 7 PM EDT from Last 3 Months or Most Recently Relevant to Health Maintenance Results * Lamotrigine level (02/18/2025 7:25 PM EDT) LAMOTRIGINE 4.4 4.0 - 18.0 mcg/mL [facility] Comment:This test was develo ped and its performance characteristics determined by the [facility]. It has not been cleared or approved by the US Food and Drug Administration. This laboratory is certified under CLIA as qualified to perform high complexity clinical laboratory testing. Blood 02/18/2025 7:25 PM EDT 02/18/2025 7:39 PM EDT Juan David Sanabria [facility] LAB BLOOD BKR ORDERABLES Final Result [facility] [address] [place] [address] * (ABNORMAL) TSH with reflex (02/18/2025 7:14 AM EDT) TSH 5.23(H) 0.27 - 4.20 uIU/mL [facility] Blood 02/18/2025 7:14 AM EDT 02/18/2025 7:33 AM EDT Juan David Sanabria [facility] LAB BLOOD BKR ORDERABLES Final Result [facility] [address] [place] [address] * 25-OH vitamin D (02/18/2025 7:14 AM EDT) 25 OH VIT D (TOTAL) 30 30 - 60 ng/mL [facility] Blood 02/18/2025 7:14 AM EDT 02/18/2025 7:33 AM EDT us Juan David D Dong PMHNP-BC LAB BLOOD BKR ORDERABLES Final Result Performing Organization Address City/[facility]/ZIP Co de Phone Number [address] [address] * Free T4 (02/18/2025 7:14 AM EDT) FREE T4 1.2 0.9 - 1.7 ng/dL [facility] 02/18/2025 7:14 AM EDT 02/18/2025 7:33 AM EDT us Juan David D Dong PMHNP-BC LAB BLOOD BKR ORDERABLES Final Result Performing Organization Address [facility]/ZIP Co de Phone Number [address] [address] * Hemoglobin A1c (02/18/2025 7:14 AM EDT) HEMOGLOBIN A1C 4.6 4.3 - 5.8 % [facility] Blood 02/18/2025 7:14 AM EDT 02/18/2025 7:34 AM EDT us Juan David D Dong PMHNP-BC LAB BLOOD BKR ORDERABLES Final Result Performing Organization Address [facility] Co de Phone Number [address] [address] * (ABNORMAL) Folate (02/18/2025 7:14 AM EDT) FOLIC ACID >20.0(H) 4.2 - 19.9 ng/mL [facility] Blood 02/18/2025 7:14 AM EDT 02/18/2025 7:33 AM EDT us Juan David Sanabria [facility] LAB BLOOD BKR ORDERABLES Final Result Performing Organization Address City/[facility]/ZIP Co de Phone Number [address] [address] * Vitamin B12 (02/18/2025 7:14 AM EDT) VITAMIN B12 379 232 - 1,245 pg/mL [facility] Blood 02/18/2025 7:14 AM EDT 02/18/2025 7:33 AM EDT us Juan David Sanabria [facility] LAB BLOOD BKR ORDERABLES Final Result Performing Organization Address [facility] Co de Phone Number [address] [phone] * (ABNORMAL) Lipid panel (02/18/2025 7:14 AM EDT) HDL 53 mg/dL [facility] Comment: Interpretation <40 mg/dL: Low HDL cholesterol (major risk factor for CHD) Greater than or equal to 60 mg/dL: High HDL cholesterol ( negative risk factor for CHD) HDL - cholesterol is affected by a number of factors, e.g. smoking, excerise, hormones, sex and age. CHOLESTEROL 160 0 - 240 mg/dL [facility] TRIGLYCERIDES 60 30 - 160 mg/dL [facility] LDL 95 50 - 129 mg/dL [facility] Comment: LDL levels in terms of risk for coronary heart disease: <100 mg/dL: Optimal 100-129 mg/dL: Near or above optimal 130-159 mg/dL: Borderline high 160-189 mg/dL: High >190 mg/dL: Very High CARDIAC RISK RATIO 3.0(L) 3.3 - 4.4 [facility] Blood 02/18/2025 7:14 AM EDT 02/18/2025 7:34 AM EDT us Juan David Sanabria PMHNP-BC LAB BLOOD BKR ORDERABLES Final Result [address] [address] * Ethanol, blood (02/17/2025 12:50 PM EDT) ETHANOL <10 <10 mg/dL [facility] Blood 02/17/2025 12:5 0 PM EDT 02/17/2025 12:52 PM EDT us Memo Vaz MD LAB BLOOD BKR ORDERABLES Final Result Performing Organization Address [facility]/ZIP Co de Phone Number [address] [phone] * HCG, serum qualitative (02/17/2025 12:50 PM EDT) HCG, QUALITATIVE Negative Negative IU/L [facility] Blood 02/17/2025 12:5 0 PM EDT 02/17/2025 12:52 PM EDT us Memo Vaz MD LAB BLOOD BKR ORDERABLES Final Result Performing Organization Address [facility]/ZIP Co de Phone Number [address] [address] * LFTs (hepatic panel) (02/17/2025 12:50 PM EDT) ALKALINE PHOSPHATASE 74 39 - 117 U/L [facility] TOTAL BILIRUBIN 0.3 0.0 - 1.2 mg/dL [facility] DIRECT BILIRUBIN 0.1 0.0 - 0.2 mg/dL [facility] Bilirubin (Indirect) NOT CALCULATED 0 - 1.5 mg/dL [facility] AST 23 0 - 37 U/L [facility] ALT 16 0 - 40 U/L [facility] TOTAL PROTEIN 7.8 6.5 - 8.0 g/dL [facility] ALBUMIN 4.7 3.9 - 4.8 g/dL [facility] GLOBULIN 3.1 1 - 4.8 g/dL [facility] A/G Ratio 1.52 1.00 - 4.80 RATIO [facility] Blood 02/17/2025 12:5 0 PM EDT 02/17/2025 12:52 PM EDT us Memo Vaz MD LAB BLOOD BKR ORDERABLES Final Result [facility] [address] [place] [address] * (ABNORMAL) CBC and differential (02/17/2025 12:50 PM EDT) WBC 6.84 4.00 - 11.00 K/uL [facility] RBC 4.02 4.00 - 5.20 M/uL [facility] HGB 11.4(L) 12.0 - 16.0 g/dL [facility] HCT 36.3 36.0 - 46.0 % [facility] PLT 321 150 - 450 K/uL [facility] MCV 90.3 80.0 - 100.0 fL [facility] MCH 28.4 27.0 - 31.0 pg [facility] MCHC 31.4(L) 32.0 - 36.0 g/dL [facility] RDW 15.3(H) 11.5 - 14.5 % [facility] MPV 9.6 8.4 - 12.0 fL [facility] NRBC 0.00 0.00 /100 WBCs [facility] ABSOLUTE NRBC 0.00 0.00 K/uL [facility] DIFF METHOD Auto [facility] NEUTS 69.5 48.0 - 76.0 % [facility] LYMPHS 19.4 18.0 - 41.0 % [facility] MONOS 7.3 4.0 - 11.0 % [facility] EOS 2.5 0.0 - 5.0 % [facility] BASOS 1.0 0.0 - 1.5 % [facility] Granulocytes, immature (%) 0.3 0.0 - 0.9 % [facility] ABSOLUTE NEUTS 4.75 1.92 - 7.60 K/uL [facility] ABSOLUTE LYMPHS 1.33 0.72 - 4.10 K/uL [facility] ABSOLUTE MONOS 0.50 0.16 - 1.10 K/uL [facility] ABSOLUTE EOS 0.17 0.00 - 0.50 K/uL [facility] ABSOLUTE BASOS 0.07 0.00 - 0.15 K/uL [facility] Granulocytes, immature 0.02 0.00 - 0.09 K/uL [facility] Blood 02/17/2025 12:5 0 PM EDT 02/17/2025 12:52 PM EDT us Memo Vaz MD LAB BLOOD BKR ORDERABLES Final Result Performing Organization Address City/[facility]/ZIP Co de Phone Number [address] [address] * Basic metabolic panel (02/17/2025 12:50 PM EDT) SODIUM 140 133 - 146 mmol/L [facility] CHLORIDE 101 96 - 108 mmol/L [facility] POTASSIUM 4.2 3.3 - 5.1 mmol/L [facility] CO2 27 21 - 35 mmol/L [facility] BUN 9 6 - 19 mg/dL [facility] CREATININE 0.70 0.5 - 1.5 mg/dL [facility] GLUCOSE 90 70 - 99 mg/dL [facility] CALCIUM 9.8 8.4 - 10.3 mg/dL [facility] EGFR 109 >59 mL/min/1.7 3m2 [facility] Comment:Estimated glomerular filtration rate calculated using the CKD-EPI refit equation. ANION GAP 16 10 - 20 mmol/L [facility] Blood 02/17/2025 12:5 0 PM EDT 02/17/2025 12:52 PM EDT us Memo Vaz MD LAB BLOOD BKR ORDERABLES Final Result Performing Organization Address City/[facility]/ZIP Co de Phone Number [address] [address] * Toxicology screen, urine (02/17/2025 12:12 PM EDT) URINE CANNABINOIDS NONE DETECTED NONE DETECTED [facility] Comment:Cutoff: 50 ng/mL URINE COCAINE METAB NONE DETECTED NONE DETECTED [facility] Comment:Cutoff: 300 ng/mL URINE AMPHETAMINES NONE DETECTED NONE DETECTED [facility] Comment:Cutoff: 1000 ng/mL URINE METHADONE NONE DETECTED NONE DETECTED [facility] Comment:Cutoff: 300 ng/mL URINE OPIATES NONE DETECTED NONE DETECTED [facility] Comment:Cutoff: 300 ng/mL URINE PHENCYCLIDINE NONE DETECTED NONE DETECTED [facility] Comment:Cutoff: 25 ng/mL URINE OXYCODONE NONE DETECTED NONE DETECTED [facility] Comment:Cutoff: 300 ng/mL URINE BARBITURATES NONE DETECTED NONE DETECTED [facility] Comment:Cutoff: 200 ng/mL URINE BENZODIAZEPINE NONE DETECTED NONE DETECTED [facility] Comment:Cutoff: 200 ng/mL URINE BUPRENORPHINE NONE DETECTED NONE DETECTED [facility] Comment:Cutoff: 5 ng/mL Fentanyl, urine NONE DETECTED NONE DETECTED [facility] Comment: Cutoff: 5 ng/mL INTERPRETATION FOR TOXICOLOGY PANEL: These results are unconfirmed and should be used for Medical Treatment purposes only. Urine (Urine) 02/17/2025 12: 12 PM EDT 02/17/2025 12:30 PM EDT us Memo Vaz MD LAB URINE ORDERABLES Final Resu lt Performing Organization Address City[facility]/ZIP Co de Phone Number [address] [phone] * Hepatitis C antibody, qualitative (06/30/2024 2:20 PM EST) HCV NON-REACTIV E NON-REACTI VE [facility] Blood 06/30/2024 2:20 PM EST 06/30/2024 2:39 PM EST us Cindy Mansfield NP LAB BLOOD BKR ORDERABLES Final Result Performing Organization Address City/[facility] Co de Phone Number [address] [address] * ENDOSCOPY, COLON (04/29/2024 12:47 PM EDT) Narrative Transcriptions Jeannine Tracy MD - 04/29/2024 12:47 PM EDT [facility] Patient Name: Humaira Kayleigh Attending MD:: JEANNINE TRACY MD, Procedure Date: 04/29/2024 12:47PM Date of : 1980 Age: 44 Admit Type: Outpatient Gender: Female Room: [place] [address] Referring MD: Laura Deras Exam Type: Colonoscopy Indications: Chronic diarrhea, Unexplained iron deficiencyanemia, Weight loss Medications: Monitored Anesthesia Care Procedure: Informed consent was obtained from the patientafter discussion of the indications, limitations, alternatives, benefits, and risks of the procedure. Risks specifically discussed include but are not limited to medication reactions, missed lesions, bleeding, perforation, or the need for emergent surgery. Throughout the procedure, the patient's blood pressure, pulse, end-tidal CO2, and oxygensaturations were monitored continuously. The Colonoscope was introduced through the anus and advanced to the terminal ileum, with identificationof the appendiceal orifice and IC valve. Thecolonoscopy was performed without difficulty. The patient tolerated the procedure fairly well. The quality of the bowel preparation was evaluated using the BBPS ([place] Bowel Preparation Scale) with scores of:Right Colon = 3, Transverse Colon = 3 and Left Colon = 3 (entire mucosa seen well with no residual staining, small fragments of stool or opaque liquid). Thetotal BBPS score equals 9. The ileocecal valve,appendiceal orifice, and rectum were photographed. Complications: No immediate complications. Estimated blood loss: Minimal. Findings: The perianal and digital rectal examinations were normal. Pertinent negatives include normalsphincter tone. Retroflexion in the right colon was performed. Normal mucosa was found in the entire colon.Biopsies for histology were taken with a cold forceps fromthe ascending colon, transverse colon and descendingcolon for evaluation of microscopic colitis. Estimatedblood loss was minimal. Non-bleeding internal hemorrhoids were found during retroflexion. The hemorrhoids were moderate. The exam was otherwise without abnormality ondirect and retroflexion views. Impression: - Normal mucosa in the entire examined colon.Biopsied. - Non-bleeding internal hemorrhoids. - The examination was otherwise normal on directand retroflexion views. Recommendation: - I will send results of your biopsy to you andyour referring physician or provider. If you do notreceive notification within 3 weeks, please call ouroffice. - Repeat colonoscopy in 10 years for screening purposes. - Continue present medications. JEANNINE TRACY MD 04/29/2024 1:23:11 PM This report has been signed electronically. Number of Addenda: 0 Note Initiated On: 04/29/2024 12:47 PM Procedure Code(s): --- Professional --- 18444, Colonoscopy, flexible; with biopsy, single or multiple --- Technical --- 49028, Colonoscopy, flexible; with biopsy, single or multiple Diagnosis Code(s): --- Professional --- K64.8, Other hemorrhoids K52.9, Noninfective gastroenteritis and colitis, unspecified D50.9, Iron deficiency anemia, unspecified R63.4, Abnormal weight loss --- Technical --- K64.8, Other hemorrhoids K52.9, Noninfective gastroenteritis and colitis, unspecified D50.9, Iron deficiency anemia, unspecified R63.4, Abnormal weight loss CPT copyright 2021 [employer]. All rights reserved. The codes documented in this report are preliminary and upon nurse general duty reviewmay be revised to meet current compliance requirements. Procedure Date: 04/29/2024 12:47:37 PM [address] [place] [address] Laura Deras NP GI PROCEDURE ORDERABLES Final Result from Last 3 Months or Most Recently Relevant to Health Maintenance [facility] [place] B Advance Directives For more information, please contact: [phone] (9AM - 5PM [facility], Sunday-Sunday) * Full Code (Latest Code Status on File) Date Activated Date Inactivated Comments 02/17/2025 7:09 PM Question Answer Comments Code Status Confirmed With: Patient Care Teams Flatbed Truck Driver Relationship Specialty Start Date End Date Laura Deras NP [address] [address] PCP - General Nurse Practitioner 02/17/25 Denisse Barreto PA-C [address] [place] [id number] [email or web address] Physician Director Of Child Welfare Services Physician Director Of Child Welfare Services 11/05/24 Additional Source Comments The information contained in this document represents components of the legal health record. It is not the complete legal health record.[facility]
--- OUTSIDE RECORDS SUMMARY | 2025-05-15 18:36 | XMS_ITS ---
Author Name [facility] Organization Unknown Results Test Name/Text Value Interpretation Date Range Source Prothrombin time 10.6 sec Normal 11/08/2024 9 - 11.5 QU EST INR PPP 1.0 Normal 11/08/2024 [facility] Neutrophils NFr Bld Auto 55.8 % Normal 11/08/2024 [facility] Eosinophil NFr Bld Auto 3.9 % Normal 11/08/2024 [facility] Platelet # Bld Auto 320.0 Thousand/uL Normal 11/08/2024 140 - 400 [facility] RBC Auto 87.7 fL Normal 11/08/2024 80 - 100 [facility] MCHC RBC Auto-EntMCnc 31.4 g/dL Below low normal 11/08/2024 32 - 36 [facility] RBC # Bld Auto 4.22 Million/uL Normal 11/08/2024 3.8 - 5. 1 [facility] WBC # Bld Auto 6.5 Thousand/uL Normal 11/08/2024 3.8 - 10 .8 [facility] Neutrophils # Bld Auto 3627.0 cells/uL Normal 11/08/2024 1500 - 7800 [facility] Monocytes NFr Bld Auto 8.2 % Normal 11/08/2024 [facility] Hct VFr Bld Auto 37.0 % Normal 11/08/2024 35 - 45 QU EST RDW RBC Auto 20.2 % Above high normal 11/08/2024 11 - 15 [facility] Hgb Bld-mCnc 11.6 g/dL Below low normal 11/08/2024 11.7 - 15 .5 [facility] Basophils # Bld Auto 72.0 cells/uL Normal 11/08/2024 0 - 200 [facility] PMV Bld Donato-Zaid 10.4 fL Normal 11/08/2024 7.5 - 12.5 [facility] Lymphocytes NFr Bld Auto 31.0 % Normal 11/08/2024 [facility] Lymphocytes # Bld Auto 2015.0 cells/uL Normal 11/08/2024 850 - 3900 [facility] MCH RBC Qn Auto 27.5 pg Normal 11/08/2024 27 - [address] [facility] Eosinophil # Bld Auto 254.0 cells/uL Normal 11/08/2024 15 - 500 [facility] Monocytes # Bld Auto 533.0 cells/uL Normal 11/08/2024 200 - 950 [facility] Basophils NFr Bld Auto 1.1 % Normal 11/08/2024 [facility] POC Glucose 89.0 mg/dL Normal 07/29/2024 65 - 99 [facility] INR PPP 1.0 Normal 07/26/2024 [facility] Prothrombin time 10.3 sec Normal 07/26/2024 9 - 11.5 QU EST RBC # Bld Auto 3.93 Million/uL Normal 07/26/2024 3.8 - 5. 1 [facility] Platelet # Bld Auto 355.0 Thousand/uL Normal 07/26/2024 140 - 400 [facility] Hct VFr Bld Auto 31.6 % Below low normal 07/26/2024 35 - 45 [facility] PMV Bld Donato-Zaid 9.8 fL Normal 07/26/2024 7.5 - 12.5 [facility] WBC # Bld Auto 7.2 Thousand/uL Normal 07/26/2024 3.8 - 10 .8 [facility] MCHC RBC Auto-mCnc 30.1 g/dL Below low normal 07/26/2024 32 - 36 [facility] MCH RBC Qn Auto 24.2 pg Below low normal 07/26/2024 27 - 3 3 [facility] MCV RBC Auto 80.4 fL Normal 07/26/2024 80 - 100 [facility] RDW RBC Auto-Rto 15.9 % Above high normal 07/26/2024 11 - 15 [facility] Hgb Bld-mCnc 9.5 g/dL Below low normal 07/26/2024 11.7 - 15 .5 [facility] History of Medication Use Medication Directions Dispensed Refills Start Date End Date Stat us lurasidone (LATUDA) 20 MG Tab tablet Take 1 tablet (20 mg total) by mouth. 02/27/2025 active dihydroergotamine (DHE) 1 MG/ML injection 12/03/2024 active ondansetron (ZOFRAN) 8 MG tablet Take 1 tablet (8 mg total) by mouth every 8 hours as needed for nausea 10/24/2024 active onabotulinum Toxin Type A (BOTOX) 200 units injection 155 Units 155 Units, Intramuscular, Once, On Sun10/22/24 at 1530, For 1 dose 10/22/2024 5 completed onabotulinum Toxin Type A (BOTOX) 200 units injection 200 Units 200 Units, Intradermal, Once, On Sun07/23/24 at 1230, For 1 dose, PREEMPT PROTOCOL FOR CHRONIC MIGRAINE. SEE PROCEDURE NOTE. 07/23/2024 5 completed ketorolac (TORADOL) 30 MG/ML injection 06/26/2024 active gadobutrol (GADAVIST) injection 6 mL 6 mL, Intravenous, Once in imaging, contrast, Starting on 06/08/24 at 1512, For 1 dose, Radiology Appointment 06/08/2024 4 completed acetaZOLAMIDE (DIAMOX) 250 MG tablet Take 1 tablet (250 mg total) by mouth 3 (three) times a day. 06/06/2024 5 active SUMAtriptan succinate (IMITREX STATDOSE) 6 MG/0.5ML injection 04/27/2024 active busPIRone (BUSPAR) 10 MG tablet Take 1 tablet (10 mg total) by mouth 3 (three) times a day. 04/22/2024 active metFORMIN (GLUCOPHAGE) 850 MG tablet Take 1 tablet (850 mg total) by mouth. 04/21/2024 active levocetirizine (XYZAL) 5 MG tablet TAKE 1 TABLET BY MOUTH EVERY DAY NEEDED FOR ITCHING 03/28/2024 active rizatriptan (MAXALT) 10 MG tablet Take 1 tablet (10 mg total) by mouth Once before discharge. 03/24/2024 active SUMAtriptan succinate (IMITREX STATDOSE) 6 MG/0.5ML injection ADMINISTER 0.5 ML UNDER THE SKIN AT ONSET OF MIGRAINE. MAY REPEAT IN 2 HOURS NEEDED. MAX 2 DOSES IN 24 HOURS 03/24/2024 active Dihydroergotamine Mesylate HFA (Trudhesa) 0.725 MG/ACT Aero Soln 1 spray (0.725 mg) into each nostril (total of 2 sprays per dose); may repeat as needed after 1 hour for a total of 4 sprays (2 doses). Maximum: 4 sprays (2 doses) per 24 hours. This is for 90 day supply 02/21/2024 active B-D 3CC LUER-JOSEF SYR 72VB6-7/2 22G X 1-/2 3 ML Misc TO BE USED WITH KETOROLAC 02/08/2024 active cyclobenzaprine (FLEXERIL) 5 MG tablet Take 1 tablet (5 mg total) by mouth Once before discharge. 01/01/2024 active hydrocortisone 2.5 % cream APPLY A THIN LAYER TO THE AFFECTED AREA(S) OF THE FACE BY TOPICAL ROUTE 2 TIMES PER DAY X 10 DAYS 12/26/2023 active diclofenac potassium (CAMBIA) 50 MG packet USE 1 PACKET AND MIX WITH GLASS OF WATER TO DRINK EVERY 8 HOURS NEEDED 12/18/2023 active Ubrelvy 100 MG tablet TAKE 1 TABLET BY MOUTH AT ONSET. MAY REPEAT 1 TIME IN 2 HOURS 11/16/2023 active busPIRone (BUSPAR) 30 MG tablet Take 1 tablet (30 mg total) by mouth 2 times a day. 09/25/2023 active famotidine (PEPCID) 20 MG tablet Take 1 tablet (20 mg total) by mouth 2 times a day. 09/25/2023 active lamoTRIgine (LaMICtal) 150 MG tablet Take 1 tablet (150 mg total) by mouth. 09/25/2023 active lamoTRIgine (LaMICtal) 200 MG tablet Take 1 tablet (200 mg total) by mouth. Total 350mg daily 09/25/2023 active lamoTRIgine (LaMICtal) 200 MG tablet Take 2 tablets (400 mg total) by mouth. Total 350mg daily 09/25/2023 active levonorgestrel (Mirena, 52 MG,) 20 mcg/24hr IUD 1 Intra Uterine Device. 09/25/2023 active minocycline (MINOCIN) 100 MG capsule 2 capsules (200 mg total). 09/25/2023 active nortriptyline (PAMELOR) 50 MG capsule Take 2 capsules (100 mg total) by mouth. 09/25/2023 active PANTOprazole (PROTONIX) 40 MG EC tablet Take 1 tablet (40 mg total) by mouth 2 times a day. 09/25/2023 active levETIRAcetam (KEPPRA) 250 MG tablet Take 1.5 tablets (375 mg total) by mouth. 09/03/2023 active naproxen sodium (ALEVE) 220 mg tablet Take 1 tablet (220 mg total) by mouth Once before discharge. active albuterol (PROVENTIL HFA; VENTOLIN HFA) 108 (90 Base) MCG/ACT inhaler Inhale 2 puffs Once before discharge. active ALPRAZolam (XANAX) 0.5 MG tablet Take 1 tablet (0.5 mg total) by mouth Once before discharge. active clonazePAM (KlonoPIN) 0.5 MG disintegrating tablet Take 1 tablet (0.5 mg total) by mouth. active dextromethorphan-guaiF ENesin (MUCINEX DM) 30-600 MG per 12 hr tablet Take 1 tablet by mouth every 12 hours. active lamoTRIgine (LaMICtal) 100 MG tablet Take 3.5 tablets (350 mg total) by mouth. active LORazepam (ATIVAN) 1 MG tablet Take 1 tablet (1 mg total) by mouth 4 times daily (every 6 hours) as needed. active metFORMIN (GLUCOPHAGE) 1000 MG tablet Take 1 tablet (1,000 mg total) by mouth. active montelukast (SINGULAIR) 10 MG tablet Take 1 tablet (10 mg total) by mouth. active Multiple Vitamin (Multi-Vitamin) tablet Take 1 tablet by mouth daily. active onabotulinum Toxin Type A (BOTOX) 200 units Recon Soln injection every 12 (twelve) weeks. active ondansetron (ZOFRAN-ODT) 8 MG disintegrating tablet Take 1 tablet (8 mg total) by mouth Once before discharge. active PANTOprazole (PROTONIX) 40 MG packet Take 1 packet (40 mg total) by mouth. active SUMAtriptan (IMITREX) 6 mg/0.5 mL Solution Inject 0.5 mL (6 mg total) under the skin. active Allergies Allergen Reaction Severity Comment Documented Date Source Statu s SUVOREXANT OTHER (SEE COMMENTS) [facility] TOPIRAMATE UNKNOWN/PATIEN T AND FAMILY UNABLE TO DEFINE 04/30/2024 [facility] active NICKEL RASH/DERMATITI S Other Reaction(s): Not available + allergy skin test, ,+ allergy skin test 10/11/2021 [facility] active SHELLFISH-DERIVED PRODUCTS OTHER (SEE COMMENTS) 10/06/2021 [facility] active HYDROXYZINE ITCHING 01/03/2021 [facility] active ORPHENADRINE OTHER (SEE COMMENTS) 07/09/2013 [facility] active QUETIAPINE OTHER (SEE COMMENTS) FAINTING fainted,fainted ,Seroquel, ,I fainted. Other reaction(s): Other (See Comments) fainted fainted,Other Reaction(s): Not available FAINTING fainted fainted I fainted. Other reaction(s): Other (See Comments) fainted fainted 06/20/2012 [facility] active CLOMIPRAMINE UNKNOWN/PATIEN T AND FAMILY UNABLE TO DEFINE [facility] OLMESARTAN UNKNOWN/PATIEN T AND FAMILY UNABLE TO DEFINE [facility] QUETIAPINE FUMARATE OTHER (SEE COMMENTS) fainted [facility] Problems Problem Status Onset Date Problem Type Date of Resoluti on Source Chronic migraine without aura, intractable, without status migrainosus active EncounterDiagnosisAct [facility] Encounters Encounter Type Encounter Reason Primary Diagnosis Location Date Ambulatory Chronic migraine without aura, intractable, without status migrainosus Chronic migraine without aura, intractable, without status migrainosus [facility] 04/23/2025 Ambulatory Chronic migraine without aura, intractable, without status migrainosus Chronic migraine without aura, intractable, without status migrainosus [facility] 03/05/2025 Ambulatory Chronic migraine without aura, intractable, without status migrainosus Chronic migraine without aura, intractable, without status migrainosus [facility] 01/15/2025 Ambulatory Cerebrospinal fluid leak, unspecified Cerebrospinal fluid leak, unspecified [facility] 11/26/2024 Ambulatory Headache with orthostatic component, not elsewhere classified Headache with orthostatic component, not elsewhere classified [facility] 11/11/2024 Ambulatory Chronic migraine without aura, intractable, without status migrainosus Chronic migraine without aura, intractable, without status migrainosus [facility] 10/22/2024 Ambulatory Chronic migraine without aura, intractable, without status migrainosus Chronic migraine without aura, intractable, without status migrainosus [facility] 08/11/2024 Ambulatory Headache with orthostatic component, not elsewhere classified Headache with orthostatic component, not elsewhere classified [facility] 07/29/2024 Ambulatory Chronic migraine without aura, intractable, without status migrainosus Chronic migraine without aura, intractable, without status migrainosus [facility] 07/23/2024 Ambulatory Headache with orthostatic component, not elsewhere classified Headache with orthostatic component, not elsewhere classified [facility] 06/08/2024 Ambulatory Headache with orthostatic component, not elsewhere classified Headache with orthostatic component, not elsewhere classified [facility] 06/05/2024 Ambulatory Headache with orthostatic component, not elsewhere classified Headache with orthostatic component, not elsewhere classified [facility] 06/05/2024 Ambulatory Headache with orthostatic component, not elsewhere classified Headache with orthostatic component, not elsewhere classified [facility] 06/05/2024 Ambulatory Headache with orthostatic component, not elsewhere classified Headache with orthostatic component, not elsewhere classified [facility] 05/19/2024 Ambulatory [facility] 05/07/2024 Ambulatory [facility] 05/07/2024 Ambulatory [facility] 05/07/2024 Ambulatory [facility] 05/07/2024 Ambulatory [facility] 05/07/2024 Ambulatory [facility] 05/07/2024 Ambulatory [facility] 05/07/2024 Ambulatory Headache with orthostatic component, not elsewhere classified Headache with orthostatic component, not elsewhere classified [facility] 04/30/2024 Care Team Organization Name Specialty Phone Email Start Date End Da slim [facility] 05/02/2024 [facility] 03/14/2024
--- OUTSIDE RECORDS SUMMARY | 2025-05-15 18:36 | XMS_ITS | Encounter Summary ---
Author Organization [facility] Address [address] [place] [address] Phone Care Team Providers Care Diversity Intern Name Role Phone Laura Deras PRESIDENT CEO & FOUNDER Primary Care Provider + Denisse Barreto PA-C Unavailable [phone] Laura Deras PRESIDENT CEO & FOUNDER Primary Care Provider + Reason for Referral * - New Request Specialty Diagnoses / Procedures Referred By Shaun jj Referred To Contact Radiology Diagnoses Mild intermittent asthma without complication Cardiac murmur, unspecified Family history of aortic aneurysm Procedures US Aorta Duplex Complete Andrews Brown DO [facility] [address] [place] [address] Phone: tel: fax: mailto: Referral ID Status Reason Start Date Expiration Date V isits Requested Visits Authorized [id number] New Request 10/21/2024 1 1 Encounter Details Date Type Department Care Team (Latest Contact Info) Description 10/21/2024 Ancillary Orders [facility] [address] Floor, [address] [place] [address] Andrews Brown DO [address] [facility] [address] [place] [id number] [email or web address] Mild intermittent asthma without complication (Primary Dx); Cardiac murmur, unspecified; Family history of aortic aneurysm Social History Tobacco Use Types Packs/Day Years [...] high school, GED, job training, learning the Slovak language, technical skills, or developing parenting skills)? [...] Description 07/13/2025 2:30 PM EST Office Visit [facility] [address] [place] [phone] Unknown, Unknown, Rebecca Farmer, ARCGIS DEVELOPER [address] [place] [phone] 11/16/2025 10:15 AM EDT Office Visit [facility] [address] [place] [address] [address]rd Floor, [address] [place], [place] [id number] Andrews Brown DO [address] [facility] [address] [place] [address] [phone] documented as of this encounter Results * US Aorta Duplex Complete (10/21/2024 2:53 PM EDT) Height 175 cm Weight 64 kg Anatomical Region Laterality Modality Aorta Ultrasound Narrative 10/22/2024 8:15 AM EDT Impression: No evidence of AAA or hemodynamically significant arterial disease. Normal study. Abdominal Aorta AORTA ; Aorta: Prox: 2 x 2.2 x 2.1 cm; 128 cm/sec Mid: 1.8 x 1.8 x 1.7 cm; 113 cm/sec Distal: 1.7 x 1.6 x 1.5 cm; 124 cm/sec Right Common Iliac Artery: Prox: 78 cm/sec Distal: 92 cm/sec Diameter: 1.2 x 1 cm Right External Iliac Artery: Prox: 82 cm/sec Mid: 104 cm/sec Distal: 95 cm/sec Left Common Iliac Artery: Prox: 87 cm/sec Distal: 99 cm/sec Diameter: 1 x 1 cm Left External Iliac Artery: Prox: 68 cm/sec Mid: 48 cm/sec Distal: 77 cm/sec us Andrews A Arcoleo DO IMG US ABDOMEN Final Result documented in this encounter Visit Diagnoses Diagnosis Mild intermittent asthma without complication Cardiac murmur, unspecified Family history of aortic aneurysm Family history of other cardiovascular diseases Mild intermittent asthma without complication- Primary Cardiac murmur, unspecified Family history of aortic aneurysm Family history of other cardiovascular diseases documented in this encounter Additional Health Concerns Assessment Noted Time PHQ-2 Depression Total Score: 2 06/30/20 24 12:52 PM EST documented as of this encounter Care Teams Diversity Intern Relationship Specialty Start Date End Date Laura Deras NP PCP - General Nurse Practitioner 09/04/24 02/16/25 Laura Deras NP [address] [place] [phone] PCP - General Nurse Practitioner 02/17/25 Denisse Barreto PA-C [address] [place] [phone] Physician Disease Case Manager Rn Physician Disease Case Manager Rn 11/05/24 documented as of this encounter Additional Source Comments The information contained in this document represents components of the legal health record. It is not the complete legal health record.[facility]
--- OUTSIDE RECORDS SUMMARY | 2025-05-15 18:37 | XMS_ITS | Encounter Summary ---
Author Organization [facility] Address [address] [facility] [address] [place] [phone] Phone Care Team Providers Care Range Rider Name Role Phone Laura Deras TUBE MACHINE OPERATOR Primary Care Provider + Cindy Mansfield TUBE MACHINE OPERATOR Primary Care Provider + Laura Deras TUBE MACHINE OPERATOR Primary Care Provider + Denisse Barreto PA-C Unavailable [phone] Laura Deras TUBE MACHINE OPERATOR Primary Care Provider + Encounter Details Date Type Department Care Team (Late st Contact Info) Description 04/29/2024 Procedure Pass [facility] Admitting Dept Virtual Department [address] [place], [place] [id number] Social History Tobacco Use Types Packs/Day Years Used Date Smoking Tobacco: Former Cigarettes Q uit: 2004 Smokeless Tobacco: Never Alcohol Use Standard Drinks/Week Comments Not Currently 0 (1 standard drink = 0.6 oz pur e alcohol) Education Answer Date Recorded Are you interested in more education? Not on tom e 09/21/2023 Are you concerned about learning? Not on file 09/21/2023 No 09/21/2023 No 09/21/2023 Digital Access Answer Date Recorded No 09/21/2023 No 09/21/2023 Reliable internet access at home? Not on file 09/21/2023 Device with a working camera? Not on file Intimate Partner Violence Answer Date R ecorded Are you denied basic needs s uch as food, clothing, or medical care? No 04/29/2024 In the past 12 months have y ou been in a relationship with a person who hurts, threatens, or tries to control you? No 04/29/2024 Are you denied basic needs s uch as food, clothing, or medical care? No 04/29/2024 In the past 12 months have y ou been in a relationship with a person who hurts, threatens, or tries to control you? No 04/29/2024 Comments No Sex and Gender Information Value Date Recorded Sex Assigned at Not on file Legal Sex Female 2:43 PM EDT Gender Identity Not on file Sexual Orientation Not on file documented as of this encounter Plan of Treatment Upcoming Encounters Date Type Department Care Team (Late st Contact Info) Description 07/13/2025 2:30 PM EST Office Visit [facility] [address] [place] [phone] Unknown, Unknown, Rebecca Farmer, PROPERTY CLAIM REP [address] [place], [place] [phone] 11/16/2025 10:15 AM EDT Office Visit [facility] [address] [place] [address] [address] [facility] [facility], [address] [place] [phone] Andrews Brown DO [address] [facility] [address] [place] [phone] documented as of this encounter Visit Diagnoses Not on filedocumented in this encounter Care Teams Range Rider Relationship Specialty Start Date End Date Laura Deras NP PCP - General Nurse Practitioner 04/29/24 06/19/24 Cindy Mansfield NP [address] [place] [phone] PCP - General Nurse Practitioner 06/20/24 08/31/24 Laura Deras NP PCP - General Nurse Practitioner 09/04/24 02/16/25 Laura Dears NP [address] [address] PCP - General Nurse Practitioner 02/17/25 Denisse Barreto PA-C [address] [place] [phone] [email or web address] Physician Test Driller Physician Test Driller 11/05/24 documented as of this encounter Additional Source Comments The information contained in this document represents components of the legal health record. It is not the complete legal health record.[facility]
--- OUTSIDE RECORDS SUMMARY | 2025-05-15 18:37 | XMS_ITS | Data Portability ---
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 Med. & Rehab JUANIS MAGUIRE Auto Transmission Specialist DAVID VIEIRA Disaster Recovery Specialist Assessment Encounter Date Assessment Date Assessment LastModified by Organization Details LastModified Time 05/28/2023 05/28/2023 41-year-old woman with history of mild intermittent asthma, now with symptoms consisting of dyspnea on exertion since an acute episode in August 2019. She had improved with Pulmicort but stopped it because she felt it caused her to wake up in the middle of the night. Patient is currently on Singulair and prn albuterol. She underwent nasal septoplasty August,, with improvement in her episodes of SOB. She is being followed by psychiatry and is on buspirone which could also cause insomnia. She continues to have intermittent difficulty with sleep but it appears to be improved. IgE level is mildly elevated at 179. PFT's 03/24/2020 are normal but spirometry done on 04/16/2023 as follow-up for exposure to the [employer] dust of 03/12/2001 shows severe reduction in FEV1. Comorbidities include acid reflux, esophageal dysmotility, chronic sinusitis, cervical radiculopathy and polycystic ovary disease. 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 Evaluation for Marfan syndrome was negative. I advised the patient to continue the Singulair as well as prn albuterol. The markedly abnormal spirometry does not seem to correlate with her clinical status or her prior pulmonary function tests of 2019. I therefore recommended that she repeat PFTs, at [facility], to compare it to the prior study of 2019. I will follow her IgE level and consider starting patient on Xolair, although the breathing issue does not seem to be related exclusively to asthma and it is my improved at this time. Return to office in 6 months. Not available 05/28/2023 15:40:57 11/16/2023 11/16/2023 Medicare/[employer] Education Reminder [facility] offers a free service through a [employer], [employer], that can assist you to better understand Medicare benefits and the options available to you for selecting the best Medicare plan for your healthcare needs. For additional information, please ask for a [employer] card at the front end software engineer during check out. [email or web address] Not available 11/16/2023 11:07:59 Plan of Treatment Reminders Order Date Submit Date Provider Last Modified By Organization Details Last Modified Time Details Appointments Annual Well Visit Medicare 2025 01:40P Garrison Trinidad APN Not available Not available Not available Lab HBsAg (hepatiti s B surface Ag), serum 2023 [facility], [address], [place], [address], 11/16/2023 21:07:33 hepatitis C virus Ab, serum 2023 024 [facility], [address], [place], [address], 11/16/2023 21:05:16 RPR (rapid plasma reagin), serum 2023 024 [facility], [address], [place], [address], 05/25/2024 05:03:25 chlamydia + gonorrhea RNA, QL, unspecifi ed specimen 2023 024 [facility], [address], [place], [address], 11/17/2023 18:46:32 iron + total iron-bind ing capacity (TIBC), serum 2023 024 [facility], [address], [place], [address], 11/16/2023 21:05:13 ferritin, serum or plasma 2023 024 [facility], [address], [place], [address], 11/16/2023 21:07:30 CBC w/ auto diff 2023 024 [facility], [address], [place], [address], 11/16/2023 20:11:14 lipid panel, serum 2023 024 [facility], [address], [place], [address], 11/16/2023 21:05:07 CMP, serum or plasma 2023 024 [facility], [address], [place], [address], 11/16/2023 21:05:04 TSH, serum or plasma 2023 024 [facility], [address], [place], [address], 11/16/2023 21:07:36 HIV 1+2 AB + HIV 1 p24 Ag, qualitati ve immunoass ay, serum 2023 024 [facility], [address], [place], [address], 11/16/2023 21:10:53 BMP, serum or plasma 2022 023 [facility], [address], [place], [address], 01/04/2023 22:28:23 fecal occult blood, immunoass ay, stool 2022 023 [facility], [address], [place], [address], 02/04/2023 12:11:17 enteric bacteria, organism specific culture, stool 2022 023 [facility], [address], [place], [address], 12/08/2022 11:33:38 CBC w/ auto diff 2022 023 [facility], [address], [place], [address], 12/01/2022 23:05:27 CMP, serum or plasma 2022 023 [facility], [address], [place], [address], 12/01/2022 23:30:41 TSH, serum or plasma 2022 023 [facility], [address], [place], [address], 12/01/2022 23:30:43 ESR (erythroc yte sedimenta tion rate), blood 2022 023 [facility], [address], [place], [address], 12/01/2022 23:12:42 C-reactiv e protein, quantitat tamera, serum or plasma 2022 023 [facility], [address], [place], [address], 12/01/2022 23:30:39 Referral None recorded. Procedures None recorded. Surgeries None recorded. Imaging MR, angiogram , chest, w/wo contrast 2022 023 [facility], [address], [place], [address], 01/16/2023 16:28:55 Medication Orders Klonopin 0.5 mg tablet 2023 024 [id number], [address] [place], [place], [id number], 11/16/2023 11:23:43 buspirone 10 mg tablet 2023 024 [facility] #23805, [address] [place], [place], [id number], 11/16/2023 11:25:52 Lamictal 100 mg tablet 2023 [facility]24 [facility], [address] [place], [place], [id number], 12/03/2023 10:27:23 Lamictal 200 mg tablet 2023 024 [facility] #68583, [address] [place], [place], [id number], 11/16/2023 11:25:51 sodium chloride 1,000 mg soluble tablet 2022 024 [facility]75857, [address], [place], [place], [id number], 11/16/2023 11:13:40 Patient TargetsNo targets recorded. Patient Instructions Encounter Date Encounter Id Patient Instructions Last Modified By Organization Details Last Modified Time 05/28/2023 [id number] complete PFT w/ post bronchodilator spirometry* YOLANDA Not available 05/31/2023 11:28:23 gastroesophageal reflux disease (GERD): care instructions [email or web address] Not available 05/28/2023 15:40:58 11/16/2023 [id number] Annual Wellness Visit (AWV) Patient Handout carlene Not available 11/16/2023 11:18:30 high cholesterol : care instructions carlene Not available 11/16/2023 11:18:29 Medicare/HS360 Education Reminder [facility] offers a free service through a company, [employer], that can assist you to better understand Medicare benefits and the options available to you for selecting the best Medicare plan for your healthcare needs. For additional information, please call [phone] or visit [email or web address] ANNUAL WELLNESS VISIT ASSESSMENT AND PERSONALIZED WELLNESS PLAN* To promote good health please follow these recommendations: Diet, Physical Activity and Healthy Weight: Eat a diet rich in fruits and vegetables, minimizing simple carbohydrates, salt, and saturated fats. Engage in regular physical activity and weight bearing exercise, as tolerated Tobacco, Alcohol and Substance Use: Don't smoke or use other nicotine products Avoid excessive alcohol intake Avoid misuse of any substances in a manner that is not in accordance with appropriate use Fall Prevention: Remove loose rugs and use handrails on steps and in bath Cognition: Being intellectually engaged may benefit the brain. Lots of activities can keep your mind active. For example, read books and magazines. Play games. Take or teach a class. Learn a new skill or hobby. Work or volunteer. Please remember to schedule any preventive health measures that we talked about today. You also have access to education on fall prevention and community-based lifestyle interventions to help reduce health risks and promote healthy living in your Annual Wellness folder or in the portal. Screening Recommendations: Breast Cancer Screening (Mammogram): Completed Colorectal Cancer Screening: Colonoscopy next due 2024 Osteoporosis Screening (Bone Density Scan/DEXA) at age 65 and as needed: Not Needed Immunizations: Pneumococcal Vaccine(s): Not Applicable Influenza (Flu) Vaccine: Recommended every Fall/Winter Advance Care Plan/Directives: Advance Care Plan/Directives not discussed due to young age If you have any questions with regards to your care plan, or need to schedule an appointment, please contact our office. *Recommended services are based on (a) services covered by Medicare, (b) U.S. Preventive Services Task Force & Advisory Committee on Immunization Practices guidelines, and (3) individual health status and risks. [email or web address] Not available 11/16/2023 21:52:39 Reason for Referral None Reported. Results Created Date Observation Date Name Description Value Unit Range Abnormal Flag Note LastModifiedBy Organization Detail LastModifiedTime 12/02/1912/01/2022 CBC WITH DIFFE RENTI AL white blood cells 6.67 10^3/ uL 3.50 - 10.60 normal Not Available [facility] [address] [place], [address], 12/01/2022 23:05:27 12/02/19 23 12/01/2022 CBC WITH DIFFE RENTI AL red blood cells 3.79 10^6/ uL 3.87 - 5.15 low Not Available [facility] [address] [place], [address], 12/01/2022 23:05:27 12/02/19 23 12/01/2022 CBC WITH DIFFE RENTI AL NRBC % 0.0 NRBC/ 100_W BC <1.0 normal Not Available [facility] [address] [place], [address], 12/01/2022 23:05:27 12/02/19 23 12/01/2022 CBC WITH DIFFE RENTI AL hemoglobin 8.9 g/dL 11.1 - 15.0 low Not Available [facility] [address] [place], [address], 12/01/2022 23:05:27 12/02/19 23 12/01/2022 CBC WITH DIFFE RENTI AL hematocrit 29.1 % 34.1 - 44.7 low Not Available [facility] [address] [place], [address], 12/01/2022 23:05:27 12/02/19 23 12/01/2022 CBC WITH DIFFE RENTI AL platelet count 377 10^3/ uL 140 - 400 normal Not Available [facility] [address] [place], [address], 12/01/2022 23:05:27 12/02/19 23 12/01/2022 CBC WITH DIFFE RENTI AL MCV 76.8 fL 76.0 - 98.0 normal Not Available [facility] [address] [place], [address], 12/01/2022 23:05:27 12/02/19 23 12/01/2022 CBC WITH DIFFE RENTI AL MCH 23.5 pg 23.5 - 32.8 normal Not Available [facility] [address] [place], [address], 12/01/2022 23:05:27 12/02/19 23 12/01/2022 CBC WITH DIFFE RENTI AL MCHC 30.6 g/dL 31.4 - 35.2 low Not Available [facility] [address] [place], [address], 12/01/2022 23:05:27 12/02/19 23 12/01/2022 CBC WITH DIFFE RENTI AL RDW-CV 17.2 % 12.1 - 15.9 high Not Available [facility] [address] [place], [address], 12/01/2022 23:05:27 12/02/19 23 12/01/2022 CBC WITH DIFFE RENTI AL MPV 9.6 fL 8.9 - 12.5 normal Not Available [facility] [address] [place], [address], 12/01/2022 23:05:27 12/02/19 23 12/01/2022 CBC WITH DIFFE RENTI AL neutrophils % 50.5 % 37.0 - 73.0 normal Not Available [facility] [address] [place], [address], 12/01/2022 23:05:27 12/02/19 23 12/01/2022 CBC WITH DIFFE RENTI AL lymphocyte % 35.5 % 18.0 - 51.0 normal Not Available [facility] [address] [place], [address], 12/01/2022 23:05:27 12/02/19 23 12/01/2022 CBC WITH DIFFE RENTI AL monocyte % 7.8 % 4.0 - 12.0 normal Not Available [facility] [address] [place], [address], 12/01/2022 23:05:27 12/02/19 23 12/01/2022 CBC WITH DIFFE RENTI AL eosinophil auto % 4.9 % 1.0 - 9.0 normal Not Available [facility] [address] [place], [address], 12/01/2022 23:05:27 12/02/19 23 12/01/2022 CBC WITH DIFFE RENTI AL basophil auto % 1.2 % 0.0 - 1.0 high Not Available [facility] [place], [address], 12/01/2022 23:05:27 12/02/19 23 12/01/2022 CBC WITH DIFFE RENTI AL neutrophil auto absolute 3.36 10^3/ uL 1.43 - 6.19 normal Not Available [facility] [place], [address], 12/01/2022 23:05:27 12/02/19 23 12/01/2022 CBC WITH DIFFE RENTI AL lymphocytes auto absolute 2.37 10^3/ uL 1.02 - 3.25 normal Not Available [facility] [address] [place], [address], 12/01/2022 23:05:27 12/02/19 23 12/01/2022 CBC WITH DIFFE RENTI AL monocytes auto absolute 0.52 10^3/ uL 0.23 - 0.76 normal Not Available [facility] [address] [place], [address], 12/01/2022 23:05:27 12/02/19 23 12/01/2022 CBC WITH DIFFE RENTI AL eosinophils auto absolute 0.33 10^3/ uL 0.03 - 0.51 normal Not Available [facility] [address] [place], [address], 12/01/2022 23:05:27 12/02/19 23 12/01/2022 CBC WITH DIFFE RENTI AL basophil auto absolute 0.08 10^3/ uL 0.01 - 0.08 normal Not Available [facility] [address] [place], [address], 12/01/2022 23:05:27 12/02/19 23 12/01/2022 SED RATE (ESR) ESR 10 mm/HR 0 - 20 normal Not Available [facility] [address] [place], [address], 12/01/2022 23:12:42 12/02/19 23 12/01/2022 C-JAIME CTIVE PROTE IN C-reactive protein <3.4 mg/L <5.0 normal Not Available [facility] [place] [address] [place], [address], 12/01/2022 23:30:39 12/02/19 23 12/01/2022 COMPR EHENS TAMERA METAB OLIC PANEL glucose, non-fasting 92 mg/dL 70 - 139 normal Not Available [facility] [address] [place], [address], 12/01/2022 23:30:41 12/02/19 23 12/01/2022 COMPR EHENS TAMERA METAB OLIC PANEL blood urea nitrogen 11 mg/dL 9 - 25 normal Not Available [facility] [address] [place], [address], 12/01/2022 23:30:41 12/02/19 23 12/01/2022 COMPR EHENS TAMERA METAB OLIC PANEL creatinine 0.95 mg/dL 0.55 - 1.07 normal Not Available [facility] [address] [place], [address], 12/01/2022 23:30:41 12/02/19 23 12/01/2022 COMPR EHENS TAMERA METAB OLIC PANEL glomerular filtration rate 76 mL/mi n/1.7 3m^2 >=60 normal Medic al Direc tor's Note: Effec tive (04/01), [facility] t Healt h uses the 2020 CKD-E PI creat inine equat ion witho ut a race facto r to calcu late and repor t eGFR resul ts. Not Available [facility] [address] [place], [address], 12/01/2022 23:30:41 12/02/19 23 12/01/2022 COMPR EHENS TAMERA METAB OLIC PANEL sodium 139 mmol/ L 136 - 145 normal Not Available [facility] [address] [place], [address], 12/01/2022 23:30:41 12/02/19 23 12/01/2022 COMPR EHENS TAMERA METAB OLIC PANEL potassium 4.0 mmol/ L 3.5 - 5.1 normal Not Available [facility] [address] [place], [address], 12/01/2022 23:30:41 12/02/19 23 12/01/2022 COMPR EHENS TAMERA METAB OLIC PANEL chloride 100 mmol/ L 98 - 107 normal Not Available [facility] [address] [place], [address], 12/01/2022 23:30:41 12/02/19 23 12/01/2022 COMPR EHENS TAMERA METAB OLIC PANEL carbon dioxide 27 mmol/ L 21 - 32 normal Not Available [facility] [address] [place], [address], 12/01/2022 23:30:41 12/02/19 23 12/01/2022 COMPR EHENS TAMERA METAB OLIC PANEL anion gap 12 7 - 15 normal Not Available [facility] [address] [place], [address], 12/01/2022 23:30:41 12/02/19 23 12/01/2022 COMPR EHENS TAMERA METAB OLIC PANEL calcium 9.9 mg/dL 9.0 - 10.4 normal Not Available [facility] [address] [place], [address], 12/01/2022 23:30:41 12/02/19 23 12/01/2022 COMPR EHENS TAMERA METAB OLIC PANEL total protein 7.4 g/dL 6.0 - 8.3 normal Not Available [facility] [address] [place], [address], 12/01/2022 23:30:41 12/02/19 23 12/01/2022 COMPR EHENS TAMERA METAB OLIC PANEL albumin 4.9 g/dL 3.4 - 5.0 normal Not Available [facility] [address] [place], [address], 12/01/2022 23:30:41 12/02/19 23 12/01/2022 COMPR EHENS TAMERA METAB OLIC PANEL total bilirubin 0.20 mg/dL <=1.20 normal Not Available [facility] [address] [place], [address], 12/01/2022 23:30:41 12/02/19 23 12/01/2022 COMPR EHENS TAMERA METAB OLIC PANEL alkaline phosphatase 84 U/L 37 - 123 normal Not Available [facility] [address] [place], [address], 12/01/2022 23:30:41 12/02/19 23 12/01/2022 COMPR EHENS TAMERA METAB OLIC PANEL SGOT (AST) 19 U/L 0 - 32 normal Not Available [facility] [address] [place], [address], 12/01/2022 23:30:41 12/02/19 23 12/01/2022 COMPR EHENS TAMERA METAB OLIC PANEL SGPT (ALT) 12 U/L 0 - 33 normal Not Available [facility] [place] [place], [address], 12/01/2022 23:30:41 12/02/19 23 12/01/2022 TSH REFLE X FT4 TSH 1.640 uIU/m L 0.270 - 4.200 normal Not Available [facility] [address] [place], [place] [address], [address], 12/01/2022 23:30:43 12/09/19 23 12/08/2022 GASTR OINTE KORINA L PANEL RT-PC R campylobacte r(jejuni, coli & upsaliensis NOT DETECT ED not detect ed normal Not Available [facility] [address] [place] [address], [address], 12/08/2022 11:33:38 12/09/19 23 12/08/2022 GASTR OINTE KORINA L PANEL RT-PC R clostridium difficile (toxin A/B) NOT DETECT ED not detect ed normal Not Available [facility] [address] [place], [place] [address], [address], 12/08/2022 11:33:38 12/09/19 23 12/08/2022 GASTR OINTE KORINA L PANEL RT-PC R plesiomonas shigelloides NOT DETECT ED not detect ed normal Not Available [facility] [address] [place], [place] [address], [address], 12/08/2022 11:33:38 12/09/19 23 12/08/2022 GASTR OINTE KORINA L PANEL RT-PC R salmonella NOT DETECT ED not detect ed normal Not Available [facility] [address] [place], [place] [address] [place], [address], 12/08/2022 11:33:38 12/09/19 23 12/08/2022 GASTR OINTE KORINA L PANEL RT-PC R vibrio(parah aemolyticus & vulnificus) NOT DETECT ED not detect ed normal Not Available [facility] [address] [place], [address], 12/08/2022 11:33:38 12/09/19 23 12/08/2022 GASTR OINTE KORINA L PANEL RT-PC R vibrio cholerae NOT DETECT ED not detect ed normal Not Available [facility] [place] [place], [address], 12/08/2022 11:33:38 12/09/19 23 12/08/2022 GASTR OINTE KORINA L PANEL RT-PC R yersinia enterocoliti ca NOT DETECT ED not detect ed normal Not Available [facility] [place] [place], [address], 12/08/2022 11:33:38 12/09/19 23 12/08/2022 GASTR OINTE KORINA L PANEL RT-PC R enteroaggreg ative E. coli (eaec) NOT DETECT ED not detect ed normal Not Available [facility] [address] [place], [place] [address], [address], 12/08/2022 11:33:38 12/09/19 23 12/08/2022 GASTR OINTE KORINA L PANEL RT-PC R enteropathog enic E. coli (epec) NOT DETECT ED not detect ed normal Not Available [facility] [address] [place] [place], [address], 12/08/2022 11:33:38 12/09/19 23 12/08/2022 GASTR OINTE KORINA L PANEL RT-PC R enterotoxige kristian E. coli (etec) lt/st NOT DETECT ED not detect ed normal Not Available [facility] [place] [place], [address], 12/08/2022 11:33:38 12/09/19 23 12/08/2022 GASTR OINTE KORINA L PANEL RT-PC R shiga-like toxin-produc ting E.coli(stec) stx1/2 NOT DETECT ED not detect ed normal Not Available [facility] [address] [place], [address], 12/08/2022 11:33:38 12/09/19 23 12/08/2022 GASTR OINTE KORINA L PANEL RT-PC R shigella/ent eroinvasive E.coli (eiec) NOT DETECT ED not detect ed normal Not Available [facility] [address] [place], [address], 12/08/2022 11:33:38 12/09/19 23 12/08/2022 GASTR OINTE KORINA L PANEL RT-PC R cryptosporid ium NOT DETECT ED not detect ed normal Not Available [facility] [address] [place], [address], 12/08/2022 11:33:38 12/09/19 23 12/08/2022 GASTR OINTE KORINA L PANEL RT-PC R cyclospora cayetanensis NOT DETECT ED not detect ed normal Not Available [facility] [address] [place], [address], 12/08/2022 11:33:38 12/09/19 23 12/08/2022 GASTR OINTE KORINA L PANEL RT-PC R entamoeba histolytica NOT DETECT ED not detect ed normal Not Available [facility] [address] [place], [address], 12/08/2022 11:33:38 12/09/19 23 12/08/2022 GASTR OINTE KORINA L PANEL RT-PC R giardia lamblia NOT DETECT ED not detect ed normal Not Available [facility] [address] [place], [address], 12/08/2022 11:33:38 12/09/19 23 12/08/2022 GASTR OINTE KORINA L PANEL RT-PC R adenovirus F 40/41 NOT DETECT ED not detect ed normal Not Available [facility] [address] [place], [address], 12/08/2022 11:33:38 12/09/19 23 12/08/2022 GASTR OINTE KORINA L PANEL RT-PC R astrovirus NOT DETECT ED not detect ed normal Not Available [facility] [address] [place], [address], 12/08/2022 11:33:38 12/09/19 23 12/08/2022 GASTR OINTE KORINA L PANEL RT-PC R norovirus GI/gii NOT DETECT ED not detect ed normal Not Available [facility] [address] [place], [address], 12/08/2022 11:33:38 12/09/19 23 12/08/2022 GASTR OINTE KORINA L PANEL RT-PC R rotavirus A NOT DETECT ED not detect ed normal Not Available [facility] [address] [place], [address], 12/08/2022 11:33:38 12/09/19 23 12/08/2022 GASTR OINTE KORINA L PANEL RT-PC R sapovirus(I, II,IV & V) NOT DETECT ED not detect ed normal Not Available [facility] [address] [place], [address], 12/08/2022 11:33:38 01/05/20 23 01/04/2023 BASIC METAB OLIC PANEL glucose, non-fasting 76 mg/dL 70 - 139 normal Not Available [facility] [address] [place], [address], 01/04/2023 22:28:23 01/05/20 23 01/04/2023 BASIC METAB OLIC PANEL blood urea nitrogen 10 mg/dL 9 - 25 normal Not Available [facility] [address] [place], [address], 01/04/2023 22:28:23 01/05/20 23 01/04/2023 BASIC METAB OLIC PANEL creatinine 0.64 mg/dL 0.55 - 1.07 normal Not Available [facility] [address] [place], [address], 01/04/2023 22:28:23 01/05/20 23 01/04/2023 BASIC METAB OLIC PANEL glomerular filtration rate 112 mL/mi n/1.7 3m^2 >=60 normal Medic al Direc tor's Note: Effec tive (04/01), [facility]mi t Healt h uses the 2020 CKD-E PI creat inine equat ion witho ut a race facto r to calcu late and repor t eGFR resul ts. Not Available [facility] [address] [place], [address], 01/04/2023 22:28:23 01/05/20 23 01/04/2023 BASIC METAB OLIC PANEL sodium 140 mmol/ L 136 - 145 normal Not Available [facility] [address] [place], [address], 01/04/2023 22:28:23 01/05/20 23 01/04/2023 BASIC METAB OLIC PANEL potassium 4.5 mmol/ L 3.5 - 5.1 normal Not Available [facility] [address] [place], [address], 01/04/2023 22:28:23 01/05/20 23 01/04/2023 BASIC METAB OLIC PANEL chloride 102 mmol/ L 98 - 107 normal Not Available [facility] [address], [place], [address], 01/04/2023 22:28:23 01/05/20 23 01/04/2023 BASIC METAB OLIC PANEL carbon dioxide 27 mmol/ L 21 - 32 normal Not Available [facility] [address] [place], [address], 01/04/2023 22:28:23 01/05/20 23 01/04/2023 BASIC METAB OLIC PANEL anion gap 11 7 - 15 normal Not Available [facility] [address] [place], [address], 01/04/2023 22:28:23 01/05/20 23 01/04/2023 BASIC METAB OLIC PANEL calcium 9.9 mg/dL 9.0 - 10.4 normal Not Available [facility] [address] [place], [address], 01/04/2023 22:28:23 02/01/20 23 02/04/2023 FECAL GLOBI N IMMUN OCHEM ICAL fecal globin, immunochem NEGATI VE negati ve normal Not Available [facility] [place], [address], 02/04/2023 12:11:17 11/16/19 24 11/16/2023 CBC WITH DIFFE RENTI AL white blood cells 6.05 10^3/ uL 3.50 - 10.60 normal Not Available [facility] [place], [address], 11/16/2023 20:11:13 11/16/19 24 11/16/2023 CBC WITH DIFFE RENTI AL red blood cells 4.02 10^6/ uL 3.87 - 5.15 normal Not Available [facility] [place], [address], 11/16/2023 20:11:13 11/16/19 24 11/16/2023 CBC WITH DIFFE RENTI AL NRBC % 0.0 NRBC/ 100_W BC <1.0 normal Not Available [facility] [place], [address], 11/16/2023 20:11:13 11/16/19 24 11/16/2023 CBC WITH DIFFE RENTI AL hemoglobin 9.3 g/dL 11.1 - 15.0 low Not Available [facility] [place], [address], 11/16/2023 20:11:13 11/16/19 24 11/16/2023 CBC WITH DIFFE RENTI AL hematocrit 31.4 % 34.1 - 44.7 low Not Available [facility] [address] [place], [address], 11/16/2023 20:11:13 11/16/19 24 11/16/2023 CBC WITH DIFFE RENTI AL platelet count 358 10^3/ uL 140 - 400 normal Not Available [facility] [place], [address], 11/16/2023 20:11:13 11/16/19 24 11/16/2023 CBC WITH DIFFE RENTI AL MCV 78.1 fL 76.0 - 98.0 normal Not Available [facility] [place], [address], 11/16/2023 20:11:13 11/16/19 24 11/16/2023 CBC WITH DIFFE RENTI AL MCH 23.1 pg 23.5 - 32.8 low Not Available [facility] [place], [address], 11/16/2023 20:11:13 11/16/19 24 11/16/2023 CBC WITH DIFFE RENTI AL MCHC 29.6 g/dL 31.4 - 35.2 low Not Available [facility] [place], [address], 11/16/2023 20:11:13 11/16/19 24 11/16/2023 CBC WITH DIFFE RENTI AL RDW-CV 15.7 % 12.1 - 15.9 normal Not Available [facility] [place], [address], 11/16/2023 20:11:13 11/16/19 24 11/16/2023 CBC WITH DIFFE RENTI AL MPV 9.7 fL 8.9 - 12.5 normal Not Available [facility] [address] [place], [address], 11/16/2023 20:11:13 11/16/19 24 11/16/2023 CBC WITH DIFFE RENTI AL neutrophils % 53.6 % not estab. normal Not Available [facility] [address] [place], [address], 11/16/2023 20:11:13 11/16/19 24 11/16/2023 CBC WITH DIFFE RENTI AL lymphocyte % 33.4 % not estab. normal Not Available [facility] [address] [place], [address], 11/16/2023 20:11:13 11/16/19 24 11/16/2023 CBC WITH DIFFE RENTI AL monocyte % 7.8 % not estab. normal Not Available [facility] [address] [place], [address], 11/16/2023 20:11:13 11/16/19 24 11/16/2023 CBC WITH DIFFE RENTI AL eosinophil auto % 3.3 % not estab. normal Not Available [facility] [address] [place], [address], 11/16/2023 20:11:13 11/16/19 24 11/16/2023 CBC WITH DIFFE RENTI AL basophil auto % 1.7 % not estab. normal Not Available [facility] [address] [place], [address], 11/16/2023 20:11:13 11/16/19 24 11/16/2023 CBC WITH DIFFE RENTI AL neutrophil auto absolute 3.3 10^3/ uL 1.7 - 6.4 normal Not Available [facility] [address] [place], [address], 11/16/2023 20:11:13 11/16/19 24 11/16/2023 CBC WITH DIFFE RENTI AL lymphocytes auto absolute 2.0 10^3/ uL 0.9 - 3.2 normal Not Available [facility] [address] [place], [address], 11/16/2023 20:11:13 11/16/19 24 11/16/2023 CBC WITH DIFFE RENTI AL monocytes auto absolute 0.5 10^3/ uL 0.3 - 0.9 normal Not Available [facility] [address] [place], [address], 11/16/2023 20:11:13 11/16/19 24 11/16/2023 CBC WITH DIFFE RENTI AL eosinophils auto absolute 0.2 10^3/ uL 0.0 - 0.6 normal Not Available [facility] [address] [place], [address], 11/16/2023 20:11:13 11/16/19 24 11/16/2023 CBC WITH DIFFE RENTI AL basophil auto absolute 0.1 10^3/ uL 0.0 - 0.1 normal Not Available [facility] [address] [place], [address], 11/16/2023 20:11:13 11/16/19 24 11/16/2023 COMPR EHENS TAMERA METAB OLIC PANEL glucose, fasting 84 mg/dL 70 - 99 normal This patie nt was fasti ng. Not Available [facility] [address] [place], [address], 11/16/2023 21:05:04 11/16/19 24 11/16/2023 COMPR EHENS TAMERA METAB OLIC PANEL blood urea nitrogen 10 mg/dL 9 - 25 normal Not Available [facility] [address] [place], [address], 11/16/2023 21:05:04 11/16/19 24 11/16/2023 COMPR EHENS TAMERA METAB OLIC PANEL creatinine 0.76 mg/dL 0.55 - 1.07 normal Not Available [facility] [address] [place], [address], 11/16/2023 21:05:04 11/16/19 24 11/16/2023 COMPR EHENS TAMERA METAB OLIC PANEL glomerular filtration rate 99 mL/mi n/1.7 3m^2 >=60 normal Medic al Direc tor's Note: Effec tive (04/01), [facility] uses the 2020 CKD-E PI creat inine equat ion witho ut a race facto r to calcu late and repor t eGFR resul ts. Not Available [facility] [address] [place], [address], 11/16/2023 21:05:04 11/16/19 24 11/16/2023 COMPR EHENS TAMERA METAB OLIC PANEL sodium 139 mmol/ L 136 - 145 normal Not Available [facility] [address] [place], [address], 11/16/2023 21:05:04 11/16/19 24 11/16/2023 COMPR EHENS TAMERA METAB OLIC PANEL potassium 4.2 mmol/ L 3.5 - 5.3 normal Not Available [facility] [address] [place], [address], 11/16/2023 21:05:04 11/16/19 24 11/16/2023 COMPR EHENS TAMERA METAB OLIC PANEL chloride 98 mmol/ L 98 - 107 normal Not Available [facility] [address] [place], [address], 11/16/2023 21:05:04 11/16/19 24 11/16/2023 COMPR EHENS TAMERA METAB OLIC PANEL carbon dioxide 28 mmol/ L 21 - 32 normal Not Available [facility] [address] [place], [address], 11/16/2023 21:05:04 11/16/19 24 11/16/2023 COMPR EHENS TAMERA METAB OLIC PANEL anion gap 13 (calc ) 7 - 15 normal Not Available [facility] [address] [place], [address], 11/16/2023 21:05:04 11/16/19 24 11/16/2023 COMPR EHENS TAMERA METAB OLIC PANEL calcium 10.3 mg/dL 8.7 - 10.3 normal Not Available [facility] [address] [place], [address], 11/16/2023 21:05:04 11/16/19 24 11/16/2023 COMPR EHENS TAMERA METAB OLIC PANEL total protein 7.5 g/dL 6.0 - 8.3 normal Not Available [facility] [address] [place], [address], 11/16/2023 21:05:04 11/16/19 24 11/16/2023 COMPR EHENS TAMERA METAB OLIC PANEL albumin 4.9 g/dL 3.4 - 5.0 normal Not Available [facility] [address] [place], [address], 11/16/2023 21:05:04 11/16/19 24 11/16/2023 COMPR EHENS TAMERA METAB OLIC PANEL total bilirubin 0.20 mg/dL <=1.20 normal Not Available [facility] [address] [place], [address], 11/16/2023 21:05:04 11/16/19 24 11/16/2023 COMPR EHENS TAMERA METAB OLIC PANEL alkaline phosphatase 75 U/L 37 - 123 normal Not Available [facility] [address] [place], [address], 11/16/2023 21:05:04 11/16/19 24 11/16/2023 COMPR EHENS TAMERA METAB OLIC PANEL SGOT (AST) 19 U/L 0 - 32 normal Not Available [facility] [address] [place], [address], 11/16/2023 21:05:04 11/16/19 24 11/16/2023 COMPR EHENS TAMERA METAB OLIC PANEL SGPT (ALT) 13 U/L <33 normal Not Available [facility] [address], [place], [address], 11/16/2023 21:05:04 11/16/19 24 11/16/2023 LIPID PANEL cholesterol 196 mg/dL <200 normal Expec elton Value s: <200 mg/dL Jamaal eable 200-2 40 mg/dL Borde rline >240 mg/dL High Risk Not Available [facility] [address], [place], [address], 11/16/2023 21:05:07 11/16/19 24 11/16/2023 LIPID PANEL HDLC 58 mg/dL A HDL level of >=60 mg/dL is consi dered prote ctive again st heart disea se and count s as a nega tive risk facto r. Its prese nce remov es one risk facto r from the total count . Not Available [facility] [address], [place], [address], 11/16/2023 21:05:07 11/16/19 24 11/16/2023 LIPID PANEL triglyceride 88 mg/dL <150 normal Expec elton Value s: <150 mg/dL Tonya l 150-1 99 mg/dL Borde rline 200-4 99 mg/dL High >=500 mg/dL Very High Not Available [facility] [address], [place], [address], 11/16/2023 21:05:07 11/16/19 24 11/16/2023 LIPID PANEL calculated LDL 119 mg/dL 0 - 99 high Jamaal able range <100 mg/dL for prima ry preve ntion ;<70 mg/dL for patie nts with CHD or diabe tic patie nts with > or = 2 CHD risk facto rs. Effec tive 10/23 , [facility] uses the [facility] minnie deras n for LDL-C , which is a valid ated novel metho d chaz patricia than the Irma duron ion in the estim ation of LDL-C . Not Available [facility] [address] [place], [address], 11/16/2023 21:05:07 11/16/19 24 11/16/2023 LIPID PANEL non-HDL 138.0 mg/dL _(ela c) Not Available [facility] [address] [place], [address], 11/16/2023 21:05:07 11/16/19 24 11/16/2023 LIPID PANEL chol/HDL 3 ratio _(ela c) 0 - 5 normal Not Available [facility] [address] [place] [address], [address], 11/16/2023 21:05:07 11/16/19 24 11/16/2023 LIPID PANEL LDL/HDL 2.1 ratio _(ela c) 0.0 - 3.2 normal Not Available [facility] [place], [address], 11/16/2023 21:05:07 11/16/19 24 11/16/2023 SYPHI LIS SCREE N/REF ROBERT TO RPR T. pallidum antibody Negati ve negati ve normal No antib odies to T. palli dum (the agent causi ng Syphi lis) were detec elton in the speci men. This resul t, does not exclu de very recen t T. palli dum infec tion; testi ng of a secon d speci men, colle cted two to four weeks after this speci men, is recom kalina d if the index of the suspi cion for recen t infec tion is high. Not Available [facility] [place] [place], [address], 11/16/2023 21:05:09 11/16/19 24 11/16/2023 TIBC total iron binding capacity 441 ug/dL _(ela c) 250 - 450 normal Not Available [facility] [address] [place], [place] [address], [address], 11/16/2023 21:05:13 11/16/19 24 11/16/2023 TIBC iron, total 39 ug/dL 37 - 145 normal Not Available [facility] [address] [place] [address], [address], 11/16/2023 21:05:13 11/16/19 24 11/16/2023 TIBC % saturation 9.0 %_(ca lc) 15.0 - 51.0 low Not Available [facility] [address] [place] [address], [address], 11/16/2023 21:05:13 11/16/19 24 11/16/2023 TIBC unsaturated iron binding capacity 402 ug/dL 112 - 347 high Not Available [facility] [address] [place] [address], [address], 11/16/2023 21:05:13 11/16/19 24 11/16/2023 HEP C ANTIB EVELYN hepatitis C antibody NONREA CTIVE nonrea ctive normal Testi ng perfo rmed on Gretel ECLIA metho dolog y. Not Available [facility] [address] [place] [address], [address], 11/16/2023 21:05:16 11/16/19 24 11/16/2023 ROSSY TIN ferritin 14.7 NG/mL 13.0 - 150.0 normal Not Available [facility] [address] [place] [address], [address], 11/16/2023 21:07:30 11/16/19 24 11/16/2023 HEP B SURFA CE AG II hepatitis B surface Ag II NONREA CTIVE nonrea ctive normal Testi ng perfo rmed on Gretel ECLIA metho dolog y. Not Available [facility] [address] [place] [address], [address], 11/16/2023 21:07:33 11/16/19 24 11/16/2023 TSH REFLE X FT4 TSH 1.980 uIU/m L 0.270 - 4.200 normal Not Available [facility] [address] [place], [address], 11/16/2023 21:07:36 11/16/19 24 11/16/2023 HIV SCREE N 4TH GENER ATION WRFX HIV duo NONREA CTIVE nonrea ctive normal Elecs ys HIV Duo is an elect gretel mil inesc ence immun oassa y ECLIA and is perfo rmed on the Lizbeth e801 immun oassa y gilles zer. Not Available [facility] [address] [place], [address], 11/16/2023 21:10:53 11/16/19 24 11/17/2023 CHLAM YDIA/ GC PCR, URINE chlamydia trachomatis NEGATI VE negati ve normal Not Available [facility] [address] [place], [address], 11/17/2023 18:46:32 11/16/19 24 11/17/2023 CHLAM YDIA/ GC PCR, URINE neisseria gonorrhoeae NEGATI VE negati ve normal Not Available [facility] [address] [place], [address], 11/17/2023 18:46:32 01/17/20 23 01/16/2023 MR, angio gram, chest , w/wo contr ast [facility] eUID=1 .2.840 .08348 7.1364 922879 .87646 [id number] 75.349 67.357 67 INTERFACE [facility] [address], [place], [address], 01/17/2023 10:34:11 01/17/20 23 01/16/2023 MR, angio gram, chest , w/wo contr ast [facility] eUID=1 .2.840 .60114 7.1364 [id number] [id number] 75.349 67.357 67 INTERFACE [facility] [address] , [place], [address], 01/17/2023 10:34:11 01/18/20 23 01/16/2023 MR, angio gram, chest , w/wo contr ast [facility] eUID=1 .2.840 .36038 7.1364 092941 .83875 [id number] 75.349 67.357 67 INTERFACE [facility] [address] [facility], [place], [address], 01/17/2023 10:34:12 01/18/20 23 01/16/2023 MR, angio gram, chest , w/wo contr ast [facility] eUID=1 .2.840 .52235 7.1364 003936 .29069 [id number] 75.349 67.357 67 INTERFACE [facility] [address] [facility], [place], [address], 01/17/2023 10:34:12 01/18/20 23 01/16/2023 MR, angio gram, chest , w/wo contr ast No observ ation record ed. YOLANDA [facility] [address] [facility], [place], [address], 01/18/2023 10:47:53 01/18/20 23 01/16/2023 MR, angio gram, chest , w/wo contr ast [facility] eUID=1 .2.840 .25688 7.1364 989884 .12334 [id number] 75.349 67.357 67 INTERFACE [facility] [address] [facility], [place], [address], 01/17/2023 10:34:13 01/18/20 23 01/16/2023 MR, angio gram, chest , w/wo contr ast [facility] eUID=1 .2.840 .88533 7.1364 718831 .48473 [id number] 75.349 67.357 67 INTERFACE [facility] [address], [place], [address], 01/17/2023 10:34:13 02/17/20 23 02/17/2022 esoph ageal manom etry No observ ation record ed. [email or web address] Not Available 2022 15:57:43 05/31/20 23 04/16/2023 elect rocar diogr am No observ ation record ed. BARCODE Not Available 2022 11:16:27 05/31/20 23 04/16/2023 compl ete PFT w/ post [facility] hodil ator maya metry * No observ ation record ed. BARCODE [facility] [address] [facility], [place], [address], 05/31/2023 11:28:23 05/31/20 23 04/16/2023 XR, chest No observ ation record ed. BARCODE Not Available 2022 11:28:23 02/08/20 24 02/08/2024 DEXA No observ ation record ed. [employer]. [address] [facility] [address] [place], [address], 02/08/2024 16:56:51 Result Notes Documentation Provider Name and Address Organization Details Recorded Time Mr, Angiogram, Chest, W/wo Contrast : StudyInstanceUID=[id number] Not Available [facility] 01/17/2023 10:34:11 Mr, Angiogram, Chest, W/wo Contrast : StudyInstanceUID=[id number] Not Available [facility] 01/17/2023 10:34:11 Mr, Angiogram, Chest, W/wo Contrast : StudyInstanceUID=[id number] Not Available [facility] 01/17/2023 10:34:12 Mr, Angiogram, Chest, W/wo Contrast : StudyInstanceUID=[id number] Not Available [facility] 01/17/2023 10:34:12 Mr, Angiogram, Chest, W/wo Contrast : StudyInstanceUID=[id number] Not Available [facility] 01/17/2023 10:34:13 Mr, Angiogram, Chest, W/wo Contrast : StudyInstanceUID=[id number] Not Available [facility] 01/17/2023 10:34:13 Problems Name Problem SNOMED Code Status Onset Date Resolution Date Notes Provider Name and Address Organization Details Recorded Time Asthma 800772765 Active [address] Vieira pul Not Available [facility] 2 16:46:34 Gastroeso phageal reflux disease 978260018 Active 2017 Not Available [facility] 2 16:46:34 Migraine 11055649 Active 2017 sees neuro 06/2022 admitted to [facility] for inpt treatment of migraines. 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 and was advised to f/u with neurosurge ry as outpt Not Available [facility] 2 16:46:34 Polycysti c ovaries Active 2017 on metformin Not Available [facility] 2 16:46:34 Anxiety 96106237 Active 2017 sees psych Not Available [facility] 2 16:46:34 Nonspecif ic esophagea l motility disorder 282728959 Active 2017 Not Available [facility] 2 16:46:34 Chronic maxillary sinusitis 19556286 Active 2018 Not Available [facility] 2 16:46:34 Mitral valve regurgita tion 28293880 Active 06/2022 mild to moderate on echo Garrison Donahue APN [address] [place], [address] , [place] - [facility] 2 13:52:55 Cerebrosp inal fluid leak 422916800 Active 07/2022 at T1-2; s/p nontargete d epidural blood patch at [facility] Garrison Donahue APN [address] [place], [address] , [place] - [facility] 4 21:50:49 Anemia 762018493 Active 11/2022 reports heavy menses 10/2023 no longer with heavy periods due to Mirena Garrison Donahue APN [address] [place], [address] , [place] - [facility] 4 21:40:25 Lichen sclerosus 863249955 Active 2023 of the vulva Garrison Donahue APN [address] [place], [address] , [place] - .[facility] 4 11:17:25 Notes:10/2023 AWV for Medicar e Problem Notes Documentation Provider Name and Address Organization Details Recorded Time 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 Donahue, Thank you for asking me to participate in the care of patient Humaira Victor who was seen in my office on 12/28/2022 for consultation and evaluation. Following are the notes from my visit. Please contact me with any questions. Assessment and Plan1. Chronic diarrhea-12/28/22 I offered her a retrograde ileoscopy with random bx's to rule out low grade IBD or microscopic colitis. She refused for now.I offered her lactose breath test, she refused for now. A detailed diet instruction with lactaid strategy given.I also instructed her to try imodium +/- daily fiber.K52.9: Noninfective gastroenteritis and colitis, unspecified FECAL GLOBIN, IMMUNOCHEMICAL 2. Abnormal weight loss-12/28/22 See above. May consider abdominal CT later on.R63.4: Abnormal weight loss 3. Normocytic anemia-See above.D64.9: Anemia, unspecified Reason for Visit GI Consult Alexis for a few months HPI3-d gi opinion visit. She was diagnosed with gerd, negative esophageal manometry, IBS. Never had a colonoscopy though. Now she presents with 2 months of diarrhea and 20 lbs weight loss. Recent stool test showed no infection. Her Hgb dropped from 10-8,8 and it was attributed to heavy menses.Active ProblemsProblems not reviewed (last reviewed 12/01/2022) Anemia - Onset: 12/04/2022 - 11/2022 reports heavy menses Anxiety - Onset: 08/23/2017 - sees psych Migraine - Onset: 08/23/2017 - sees neuro 06/2022 admitted to [facility] for inpt treatment of migraines. 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 and was advised to f/u with neurosurgery as outpt Mitral valve regurgitation - Onset: 06/29/2022 - 06/2022 mild to moderate on echo Chronic maxillary sinusitis - Onset: 02/10/2019 Asthma - Onset: 08/23/2017 - URI induced jessika Fuentes Nonspecific esophageal motility disorder - Onset: 03/14/2018 Gastroesophageal reflux disease - Onset: 08/23/2017 Cerebrospinal fluid leak - Onset: 07/19/2022 - 07/2022 at T1-2; plan for nontargeted epidural blood patch at [facility] Polycystic ovaries - Onset: 08/23/2017 - on metformin Physical ExamConstitutional:General Appearance: healthy-appearing, well-nourished, and well-developed. Level of Distress: NAD. Ambulation: ambulating normally. Psychiatric:Insight: good judgement. Head:Head: normocephalic. Eyes:Lens: clear. Sclerae: non-icteric. ENMT:Nose: no lesions on external nose. Lips, Teeth, and Gums: no mouth or lip ulcers. Oropharynx: moist mucous membranes. Neck:Neck: trachea midline and no masses. Lymph Nodes: no cervical LAD. Thyroid: no enlargement. Lungs:Respiratory effort: no dyspnea. Auscultation: good air movement and CTA except as noted. Cardiovascular:Heart Auscultation: normal S1 and S2; no murmurs, rubs, or gallops; and RRR. Abdomen:Bowel Sounds: normal. Inspection and Palpation: no tenderness, guarding, masses, rebound tenderness, or CVA tenderness and soft and non-distended. Liver: non-tender and no hepatomegaly. Spleen: non-tender and no splenomegaly. Musculoskeletal::Motor Strength and Tone: normal. Extremities: no edema. Neurologic:Gait and Station: normal gait. Skin:Inspection and palpation: no rash.Procedure DocumentationNone recorded Sincerely, Electronically Signed by: JEAN Donahue APN [address] [place], [address], [facility] - [facility] 12/28/2022 19:16:42 Procedures Surgical History Date Name Laterality Status Provider Name and Address Organization Details Recorded Time 024 Most Recent Bone Density completed Garrison Donahue APN [address] [place], [address], [facility] - [facility] 02/08/2024 16:44:19 023 Other completed Garrison Donahue APN [address] [place], [address], [facility] - [facility] 11/16/2023 11:19:30 022 Transitional Care Management completed Garrison Donahue APN [address] [place], [address], [facility] - [facility] 06/13/2022 23:18:09 022 Medication Reconciliation Post-Discharge completed Garrison Donahue APN [address] [place], [address], [facility] - [facility] 06/13/2022 23:17:23 022 Electrocardiogram ( EKG / ECG) completed Lexi JACOBSON - .[facility] 03/13/2022 19:21:00 022 Other completed Garrison Donahue APN [address] [place], [address], [place] - [facility] 08/16/2021 09:06:11 021 Egd biopsy single/multiple completed Armin JACOBSON - .[facility] 12/07/2020 09:55:16 020 Virtual Visit - Telephone completed Garrison Donahue APN [address] [place], [address], [facility] - [facility] 06/24/2020 01:02:29 019 Fiberoptic Laryngoscopy - Open Dictation completed Garrett Rajput MD [address] [place], [address], [facility] - .[facility] 02/04/2019 16:19:31 018 Egd biopsy single/multiple completed Zoey JACOBSON - .[facility] 11/16/2017 09:18:45 Other completed Garrison Donahue APN [address] [place], [address], [facility] - [facility] 08/23/2017 19:15:33 Other completed Garrison Donahue APN [address] [place], [address], [facility] - [facility] 08/23/2017 19:15:45 Echocardiogram completed Beau Kate - .[facility] 08/01/2021 10:16:35 Imaging Results None recorded. Procedure Notes None recorded. Medical Equipment None Reported. Allergies Allergen ID Allergen Name Allergen Category Reaction Reaction Severity Criticality Documentation Date Start Date Code Code System Note Provider Name and Address Organization Details Recorded Time [id number] nickel environme nt Not available Not available Not available 12/01/2022 27278 29 RxNorm INDIRA Siu - .[facility] 15:49:13 [id number] shellfish derived food,medi cation Not available Not available Not available 12/01/2022 INDIRA Siu - .[facility] 15:49:13 [id number] Topamax medicatio n itching Not available Not available 04/23/2017 10537 3 RxNorm INDIRA Sheridan - .[facility] 12:15:38 [id number] Seroquel medicatio n Not available Not available Not available 04/23/2017 95875 RxNorm faint ing Rhina CoreaINDIRA ellis - .[facility] 7 12:16:04 [id number] Benicar medicatio n Not available Not available Not available 04/23/2017 00666 3 RxNorm palpi tatio ns Rhina CoreaINDIRA ellis - .[facility] 12:16:29 [id number] Belsomra medicatio n Not available Not available Not available 12/27/2020 12508 05 RxNorm itchi ng Garrison Dago SBA UNDERWRITER [address] [place], [address] [place] [address] - .[facility] 16:15:50 Medications Name Sig Start Date Stop Date Status Note LastModified by Organization Details LastModified Time insulin syrg mis 1ml/29g 08/23 completed Not Available Not Available Not Available methylpre dnisolone dose pack 4 mg tbpk 07/12 completed Not Available Not Available Not Available klonopin 0.5 mg tabs 12/09 completed DUPLICAT E Not Available Not Available Not Available albuterol sulfate hfa 108 mcg/act aers 05/16 completed duplicat e Not Available Not Available Not Available ubrelvy 50 mg tabs 12/09 completed DUPLICAT E Not Available Not Available Not Available ajovy 225 mg/1.5ml sosy 05/16 completed duplicat e Not Available Not Available Not Available buspirone hydrochlo ride 10 mg tabs 12/09 completed DUPLICAT E Not Available Not Available Not Available amoxicill in 500 mg capsule 08/27 completed Not Available Not Available Not Available haloperid ol 0.5 mg tablet 08/27 completed Not Available Not Available Not Available Mirena 21 mcg/24 hr (up to 8 years) 52 mg intrauter ine device Take by intraute rine route. active placed 01/2023 Not Available Not Available Not Available buspirone 5 mg tablet 08/27 completed Not Available Not Available Not Available lamotrigi ne 150 mg tablet TAKE 1 TABLET BY MOUTH AT BEDTIME active Not Available Not Available No t Available metformin 500 mg tablet 08/23 completed Not Available Not Available Not Available terconazo le 0.4 % vaginal cream 02/04 completed Not Available Not Available Not Available prednison e 10 mg tablet 04/04 completed Not Available Not Available Not Available doxycycli ne hyclate 100 mg capsule TAKE 1 CAPSULE BY MOUTH TWICE DAILY FOR 14 DAYS 10/31 completed Not Available Not Available Not Available lamotrigi ne 200 mg tablet TAKE 1 TABLET BY MOUTH AT BEDTIME active Not Available Not Available No t Available ketoconaz ole 2 % shampoo WASH TOPICALL Y TO THE SCALP 3 TIMES A WEEK. LEAVE IN 5-10 MINUTES BEFORE RINSING 05/31 completed Not Available Not Available Not Available dihydroer gotamine 0.5 mg/pump act. (4 mg/mL) nasal spray USE 1 SPRAY IN EACH NOSTRIL AND REPEAT IN 15 MINUTES. CAN REPEAT 4 SPRAYS EVERY 6 HOURS THREE TIMES A DAY. DO NOT USE WITH 24 HOURS OF A TRIPTAN active Not Available Not Available No t Available nabumeton e 750 mg tablet TAKE 1 TABLET BY MOUTH TWICE DAILY NEEDED 04/04 completed Not Available Not Available Not Available tizanidin e 2 mg tablet 08/23 completed Not Available Not Available Not Available clindamyc in HCl 300 mg capsule TAKE 1 CAPSULE BY MOUTH THREE TIMES DAILY FOR 14 DAYS 10/11 completed Not Available Not Available Not Available albuterol sulfate 2.5 mg/3 mL (0.083 %) solution for nebulizat ion USE 1 VIAL VIA NEBULIZE R EVERY 4 HOURS FOR 5 DAYS NEEDED FOR SHORTNES S OF BREATH OR WHEEZING active Not Available Not Available No t Available ibuprofen 800 mg tablet TK 1 T PO TID FOR 5 DAYS 11/10 completed Not Available Not Available Not Available fluconazo le 150 mg tablet 03/14 completed Not Available Not Available Not Available levetirac etam 500 mg tablet 08/09 completed Not Available Not Available Not Available almotript an malate 12.5 mg tablet 04/17 completed Not Available Not Available Not Available prazosin 1 mg capsule TAKE 1 CAPSULE BY MOUTH AT BEDTIME active Not Available Not Available No t Available ondansetr on HCl 8 mg tablet active Not Available Not Available No t Available minocycli ne 100 mg capsule 03/20 completed Not Available Not Available Not Available meloxicam 15 mg tablet TAKE 1 TABLET BY MOUTH EVERY DAY NEEDED 04/04 completed Not Available Not Available Not Available sucralfat e 1 gram tablet 1 tablet twice daily, space apart from other medicati ons by at least 3 hours 03/14 completed Not Available Not Available Not Available polysacch aride iron complex 150 mg iron capsule TAKE 1 CAPSULE BY MOUTH TWICE DAILY 11/15 completed Not Available Not Available Not Available famotidin e 40 mg tablet TAKE 1 TABLET BY MOUTH TWICE DAILY active Not Available Not Available No t Available prednison e 20 mg tablet 03/14 completed Not Available Not Available Not Available Tubersol 5 tub. unit/0.1 mL intraderm al injection solution Administ er x 1 by intrader mal route 04/17 completed Not Available Not Available Not Available rizatript an 10 mg tablet TAKE 1 TABLET BY MOUTH NEEDED active Not Available Not Available No t Available betametha sone, augmented 0.05 % topical cream APPLY TOPICALL Y TO THE AFFECTED AREA DAILY SPARINGL Y DIRECTED active Not Available Not Available No t Available alclometa sone 0.05 % topical cream APPLY TO THE AFFECTED SKIN ON THE FACE AND BODY THREE TIMES DAILY active Not Available Not Available No t Available metformin 850 mg tablet TAKE 1 TABLET BY MOUTH EVERY DAY active Not Available Not Available No t Available sulindac 150 mg tablet active Not Available Not Available Not Available haloperid ol 1 mg tablet 08/27 completed Not Available Not Available Not Available nizatidin e 150 mg capsule Take 1 capsule twice a day by oral route for 30 days. 07/09 completed Not Available Not Available Not Available acetamino phen 300 mg-codein e 30 mg tablet 03/13 completed Not Available Not Available Not Available dihydroer gotamine 1 mg/mL injection solution ADMINIST ER 1 ML UNDER THE SKIN EVERY 8 HOURS FOR UP TO 48 HOURS NEEDED active Not Available Not Available No t Available tramadol 50 mg tablet 11/15 completed Not Available Not Available Not Available triamcino lone acetonide 0.1 % topical cream APPLY THIN LAYER TOPICALL Y TO THE AFFECTED AREA TWICE DAILY active Not Available Not Available No t Available zolmitrip sampson 5 mg tablet 02/04 completed 02/04/19 no longer Not Available Not Available Not Available BD SafetyGli de Syringe 3 mL 22 x 1 1/2 TO BE USED WITH KETOROLA C active Not Available Not Available No t Available ketorolac 30 mg/mL (1 mL) injection solution active Not Available Not Available Not Available butalbita l-acetami nophen-ca ffeine 50 mg-325 mg-40 mg tablet 04/17 completed Not Available Not Available Not Available amoxicill in 500 mg tablet TAKE 1 TABLET BY MOUTH TWICE A DAY FOR 10 DAYS FOR STREP THROAT active Not Available Not Available No t Available ondansetr on 8 mg disintegr ating tablet DISSOLVE 1 TABLET BY MOUTH EVERY 8 HOURS EVERY DAY NEEDED NAUSEA FOR UP TO 7 DAYS active Not Available Not Available No t Available alprazola m 0.5 mg tablet TAKE 1 TABLET BY MOUTH DAILY NEEDED FOR PANIC active Not Available Not Available No t Available alprazola m 0.25 mg tablet 08/27 completed Not Available Not Available Not Available famotidin e 20 mg tablet TAKE 1 TABLET BY MOUTH TWICE DAILY active Not Available Not Available No t Available amitripty line 25 mg tablet 02/06 completed Not taking Not Available Not Available Not Available BD Filter Needle-5 Micron 19 x 1 1/2 USE FILTER NEEDLE TO DRAW UP THE DHE MEDICATI ON FROM GLASS AMPULE 08/09 completed Not Available Not Available Not Available Klonopin 0.5 mg tablet TAKE 1 TABLET BY MOUTH THREE TIMES DAILY NEEDED active Not Available Not Available No t Available levetirac etam 250 mg tablet TAKE 1.5 TABLETS (375 MG TOTAL) BY MOUTH DAILY active Not Available Not Available No t Available diazepam 2 mg tablet 12/09 completed NOT TAKING Not Available Not Available Not Available promethaz ine 50 mg tablet 08/23 completed Not Available Not Available Not Available benzonata te 100 mg capsule TAKE 1 CAPSULE BY MOUTH THREE TIMES DAILY FOR 10 DAYS NEEDED 04/18 completed Not Available Not Available Not Available doxycycli ne monohydra te 100 mg capsule TAKE 1 CAPSULE BY MOUTH TWICE DAILY FOR 10 DAYS 07/12 /2021 completed Never took it Not Available Not Available Not Available hyoscyami ne 0.125 mg disintegr ating tablet DISSOLVE 1 TABLET ON THE TONGUE TWICE DAILY NEEDED 11/15 completed Not Available Not Available Not Available dexametha sone 2 mg tablet 11/01 completed Not Available Not Available Not Available pantopraz ole 40 mg tablet,de layed release TAKE 1 TABLET BY MOUTH TWICE DAILY 2024 active Not Available Not Available Not Avai lable nortripty line 10 mg capsule 130mg at bedtime 08/09 completed 100mg qhs Not Available Not Available Not Available tacrolimu s 0.1 % topical ointment APPLY THIN LAYER TO THE AFFECTED AREA ON THE FACE AND ARMS TOPICALL Y TWICE DAILY FOR 6 WEEKS AFTER COMPLETO N OF TOPICAL STEROID COURSE. active Not Available Not Available No t Available metformin 1,000 mg tablet TAKE 1 TABLET BY MOUTH TWICE DAILY active Not Available Not Available No t Available nitrofura ntoin macrocrys john paul 100 mg capsule TAKE 1 CAPSULE BY MOUTH TWICE DAILY FOR 5 DAYS 03/20 completed Not Available Not Available Not Available triamcino lone acetonide 0.1 % topical ointment 02/04 completed Not Available Not Available Not Available buspirone 10 mg tablet TAKE 3 TABLETS BY MOUTH TWICE DAILY active Not Available Not Available No t Available halobetas ol propionat e 0.05 % topical ointment APPLY FILM TOPICALL Y TO THE AFFECTED AREA 3 TIMES A WEEK active Not Available Not Available No t Available hyoscyami ne 0.125 mg sublingua l tablet DISSOLVE 1 TABLET UNDER THE TONGUE TWICE DAILY 11/15 completed Not Available Not Available Not Available frovatrip sampson 2.5 mg tablet TAKE 1 TABLET BY MOUTH EVERY DAY NEEDED FOR MIGRAINE . MAY REPEAT AFTER 2 HOURS active Not Available Not Available No t Available promethaz ine 25 mg tablet 08/23 completed Not Available Not Available Not Available Lamictal 100 mg tablet Take 1 tablet every day by oral route. 12/02 completed Not Available Not Available Not Available nortripty line 10 mg/5 mL oral solution 04/04 completed Not Available Not Available Not Available bupropion HCl 75 mg tablet TAKE 1 TABLET BY MOUTH TWICE DAILY active Not Available Not Available No t Available benztropi ne 1 mg tablet 08/09 completed Not Available Not Available Not Available indometha ranulfo 50 mg capsule one tab po prn for headache 11/01 completed Not Available Not Available Not Available gabapenti n 300 mg capsule 07/19 completed Not Available Not Available Not Available BD Regular Bevel Seneca 22 gauge x 1 1/2 TO BE USED WITH KETOROLA C 05/31 completed Not Available Not Available Not Available diclofena c sodium 75 mg tablet,de layed release TAKE 1 TABLET BY MOUTH TWICE DAILY NEEDED 04/04 completed Not Available Not Available Not Available hydrocort isone 2.5 % topical cream APPLY TWICE DAILY TO RASH TWICE DAILY FOR TWO WEEKS AT A TIME. TAKE A WEEK OFF. REPEAT NEEDED. DO NOT APPLY TO SKIN FOLDS. active Not Available Not Available No t Available monteluka st 10 mg tablet TAKE 1 TABLET BY MOUTH EVERY DAY 2024 active Not Available Not Available Not Avai lable bisacodyl 5 mg tablet,de layed release TAKE FOUR TABLET ORALLY DIRECTED active Not Available Not Available No t Available zolpidem 5 mg tablet 10/11 completed Not Available Not Available Not Available fluvoxami ne 50 mg tablet TAKE 1 TABLET BY MOUTH AT BEDTIME active Not Available Not Available No t Available mirtazapi ne 15 mg tablet TK /2 T PO QD HS 11/10 completed Not Available Not Available Not Available clobetaso l 0.05 % topical ointment APPLY A THIN LAYER TO THE AFFECTED AREA ON THE ARMS TOPICALL Y TWICE DAILY FOR UP TO 14 DAYS. DO NOT APPLY TO FACE BODY FOLD OR GENITALS active Not Available Not Available No t Available BD Tuberculi n Syringe 1 mL 25 gauge x 5/8 USE DIRECTED WITH DHE 08/09 completed Not Available Not Available Not Available lorazepam 1 mg tablet TAKE 1 TABLET BY MOUTH DAILY NEEDED FOR ANXIETY active Not Available Not Available No t Available ibuprofen 600 mg tablet 03/14 completed Not Available Not Available Not Available methylpre dnisolone 4 mg tablets in a dose pack TAKE DIRECTED WITH FOOD 01/10 completed Not Available Not Available Not Available diltiazem 30 mg tablet TAKE 1 TABLET BY MOUTH THREE TIMES DAILY 12/01 completed prn Not Available Not Available Not Available ketorolac 60 mg/2 mL intramusc ular solution 06/13 completed Not Available Not Available Not Available ketoconaz ole 2 % topical cream APPLY TWICE A DAY TO AREAS ON FACE AND BEHIND EARS NEEDED active Not Available Not Available No t Available hydroxyzi ne HCl 10 mg tablet TAKE 1 TABLET BY MOUTH AT BEDTIME 03/13 completed Not Available Not Available Not Available fluticaso ne propionat e 50 mcg/actua tion nasal spray,rayne pension SHAKE LIQUID AND USE 2 SPRAYS IN EACH NOSTRIL TWICE DAILY 11/15 completed Not Available Not Available Not Available metformin ER 500 mg tablet,ex tended release 24 hr 03/14 completed Not Available Not Available Not Available betametha sone dipropion ate 0.05 % lotion 08/27 completed Not Available Not Available Not Available lisinopri l 2.5 mg tablet 06/13 completed Not Available Not Available Not Available naratript an 2.5 mg tablet 06/03 completed Not Available Not Available Not Available isosorbid e dinitrate 5 mg tablet TAKE 1 TABLET BY MOUTH TWICE DAILY active Not Available Not Available No t Available nortripty line 50 mg capsule TAKE 2 CAPSULES BY MOUTH DAILY active Not Available Not Available No t Available spironola ctone 50 mg tablet 03/14 completed Not Available Not Available Not Available metoclopr amide 10 mg tablet 04/04 completed Not Available Not Available Not Available amoxicill in 875 mg-potass ium clavulana te 125 mg tablet TAKE 1 TABLET BY MOUTH TWICE DAILY FOR 10 DAYS 06/13 completed Not Available Not Available Not Available Ventolin HFA 90 mcg/actua tion aerosol inhaler INHALE 2 PUFFS BY MOUTH EVERY 4 HOURS NEEDED active Not Available Not Available No t Available clindamyc in phosphate 1 % topical solution APPLY TO THE AFFECTED AREA ON FOREHEAD EVERY NIGHT 05/31 completed Not Available Not Available Not Available clindamyc in 1 % lotion 12/09 completed NOT USING Not Available Not Available Not Available sumatript an 6 mg/0.5 mL subcutane ous pen injector ADMINIST ER 0.5 ML UNDER THE SKIN AT ONSET OF MIGRAINE . MAY REPEAT IN 2 HOURS NEEDED. MAX DOSES IN 24 HOURS active Not Available Not Available No t Available Caladryl 1 %-8 % lotion APPLY TO AFFECT AREAS OF THE SKIN PRN ITCH, MAX 4X DAILY 2021 active Not Available Not Available Not Avai lable ketorolac 30 mg/mL injection cartridge 08/23 completed Not Available Not Available Not Available eletripta n 40 mg tablet 04/17 completed Not Available Not Available Not Available cyclobenz aprine 5 mg tablet TAKE 1 TABLET BY MOUTH AT BEDTIME NEEDED 06/13 completed prn Not Available Not Available Not Available minocycli ne 100 mg tablet TAKE 1 TABLET BY MOUTH TWICE DAILY active Not Available Not Available No t Available metformin ER 750 mg tablet,ex tended release 24 hr TAKE 1 TABLET BY MOUTH EVERY EVENING 10/11 completed Not Available Not Available Not Available Premarin 0.625 mg/gram vaginal cream PLACE 0.5 GM VAGINALL Y TWICE A WEEK. APPLY TO THE AFFECTED AREA IN A THIN LAYER TWICE A WEEK 11/15 completed Not Available Not Available Not Available memantine 10 mg tablet 05/31 completed Not Available Not Available Not Available memantine 5 mg tablet 04/04 completed Not Available Not Available Not Available BD Regular Bevel Seneca 19 gauge x 1 1/2 USE FILTER NEEDLE TO DRAW UP DHE MEDICATI ON FROM GLASS AMPULE 05/31 completed Not Available Not Available Not Available nitrofura ntoin monohydra te/macroc rystals 100 mg capsule Take 1 capsule every 12 hours by oral route for 5 days. 07/12 completed NOT TAKING Not Available Not Available Not Available eszopiclo ne 3 mg tablet one tab po qhs prn 10/31 completed Not Available Not Available Not Available eszopiclo ne 2 mg tablet TAKE 1 TABLET BY MOUTH EVERY DAY IMMEDIAT ONEIDA BEFORE BEDTIME 10/11 completed Not Available Not Available Not Available Flovent HFA 110 mcg/actua tion aerosol inhaler INHALE 2 PUFFS BY MOUTH TWICE DAILY 02/04 completed 02/04/19 no longer Not Available Not Available Not Available pregabali n 75 mg capsule TAKE 1 CAPSULE BY MOUTH TWICE DAILY FOR 1 WEEK THEN TAKE 2 CAPSULES BY MOUTH TWICE DAILY. CONTINUE 04/04 completed Not Available Not Available Not Available BD Integra Syringe 3 mL 22 gauge x 1 1/2 USE DIRECTED WITH KETOROLA C/DHE active Not Available Not Available No t Available sodium chloride 1,000 mg soluble tablet Take 1 tablet every day by miscell. route. 11/15 completed Not Available Not Available Not Available Xopenex HFA 45 mcg/actua tion aerosol inhaler 07/09 completed 02/04/19 no longer Not Available Not Available Not Available aripipraz ole 2 mg tablet TAKE 1 TABLET BY MOUTH DAILY active Not Available Not Available No t Available Pulmicort Flexhaler 180 mcg/actua tion breath activated TAKE 2 PUFFS BY MOUTH TWICE A DAY 10/11 completed Not Available Not Available Not Available levocetir izine 5 mg tablet TAKE 1 TABLET BY MOUTH EVERY DAY NEEDED FOR ITCHING active Not Available Not Available No t Available melatonin 5 mg tablet TAKE 1 TABLET BY MOUTH EVERY NIGHT AT BEDTIME NEEDED FOR INSOMNIA active Not Available Not Available No t Available GaviLyte- G 236 gram-22.7 4 gram-6.74 gram-5.86 gram oral solution MIX AND DRINK DIRECTED active Not Available Not Available No t Available Dexilant 60 mg capsule, delayed release TAKE 1 CAPSULE BY MOUTH EVERY DAY 02/06 completed Not taking Not Available Not Available Not Available Dexilant 30 mg capsule, delayed release 02/06 completed Not taking Not Available Not Available Not Available diclofena c potassium 50 mg oral powder packet USE 1 PACKET AND MIX WITH GLASS OF WATER TO DRINK EVERY 8 HOURS NEEDED active Not Available Not Available No t Available Vios Aerosol Delivery System USE DIRECTED active Not Available Not Available No t Available lurasidon e 60 mg tablet TAKE 1/2 TABLET BY MOUTH EVERY EVENING FOR 8 DAYS WITH 350 CALORIES active Not Available Not Available No t Available Belsomra 20 mg tablet 10/11 completed Not taking Not Available Not Available Not Available baclofen 5 mg tablet 05/31 completed Not Available Not Available Not Available Aimovig Autoinjec tor 70 mg/mL subcutane ous auto-inje ctor once a month for migraine s (140mg) 07/19 completed Not Available Not Available Not Available Ajovy Syringe 225 mg/1.5 mL subcutane ous once a month 07/12 completed Not Available Not Available Not Available Emgality Pen 120 mg/mL subcutane ous pen injector 11/10 completed Not Available Not Available Not Available Ubrelvy 100 mg tablet TAKE 1 TABLET BY MOUTH AT ONSET. MAY REPEAT 1 TIME IN 2 HOURS active Not Available Not Available No t Available Ubrelvy 50 mg tablet TAKE 1 TABLET BY MOUTH TWICE DAILY NEEDED 08/09 completed Not Available Not Available Not Available Reyvow 50 mg tablet TAKE 1 TABLET BY MOUTH DAILY NEEDED FOR MIGRAINE active Not Available Not Available No t Available Ajovy 225 mg/1.5 mL subcutane ous auto-inje ctor INJECT 225MG UNDER THE SKIN ONCE MONTHLY 11/15 completed Not Available Not Available Not Available Sutab 1.479-0.1 88-0.225 gram tablet USE DIRECTED active Not Available Not Available No t Available BinaxNOW COVID-19 Ag Self Test kit TEST DIRECTED TODAY active Not Available Not Available No t Available Trudhesa 0.725 mg/pump act. (4 mg/mL) nasal spray active Not Available Not Available Not Available Qulipta 30 mg tablet 04/04 completed Not Available Not Available Not Available Paxlovid 300 mg (150 mg x 2)-100 mg tablets in a dose pack TAKE 1 TABLET BY MOUTH DAILY PER PACKAGE INSTURCT IONS 02/06 completed Not Available Not Available Not Available Vitals Date Recorded Heart rate Respiratory rate Provider N trae and Address Organization Details Last Updated DateTime 11/16/2023 98 /min 14 /min Garrison Donahue APN [address] [place], [address], [place] - [facility] 11/16/2023 21:41:24 Date Recorded Body height Body mass index (BMI) Body weight Heart rate Oxygen saturation Oxygen saturation in Arterial blood by Pulse oximetry Systolic And Diastolic Provider Name and Address Organization Details Last Updated DateTime 177.8 cm 20.4 kg/m2 07389.1 2 g 112 /min 99 % 99 % 118/68 mm[Hg] [facility] - [facility] 10:59:52 Date Recorded Respiratory rate Provider Name a nd Address Organization Details Last Updated DateTime 12/01/2022 14 /min Garrison MCCONNELL N [address] [place], [address], [place] - [facility] 12/02/2022 08:27:10 Date Recorded Body height Body mass index (BMI) Body weight Heart rate Systolic And Diastolic Provider Name and Address Organization Details Last Updated DateTime 12/01/2022 177.8 cm 21.5 kg/m2 94847.86 g 95 /min 112/70 mm[Hg] Jocelyne Monge [place] - .[facility] 3 15:55:37 Date Recorded Body height Body mass index (BMI) Body weight Oxygen saturation Oxygen saturation in Arterial blood by Pulse oximetry Heart rate Systolic And Diastolic Provider Name and Address Organization Details Last Updated DateTime 3 177.8 cm 21.2 kg/m2 01891.6 7 g 96 % 96 % 101 /min 118/72 mm[Hg] Brie Snow [place] - .[facility] 3 09:30:03 Date Recorded Body height Body mass index (BMI) Body weight Oxygen saturation Oxygen saturation in Arterial blood by Pulse oximetry Heart rate Systolic And Diastolic Provider Name and Address Organization Details Last Updated DateTime 3 177.8 cm 22 kg/m2 77853.6 3 g 98 % 98 % 96 /min 118/68 mm[Hg] Sona hewitt [place] - .[facility] 3 11:25:00 Social History Question Answer Notes LastModified by Organizat ion Details LastModified Time Tobacco Smoking Status Former Smoker light smoker; quit 2003 Mackenzie Abarca MD [address] [place], [address] - .[facility] 05/08/2018 13:19:46 What Is Your Level Of Caffeine Consumption? None Information not available 05/28/2023 How Much Tobacco Do You Chew? None Information not available 08/27/2017 When Did You Quit Smoking? 11-15yearssincel sergey cunningham Information not available 03/04/2021 Hard Of Hearing Or Deaf In One Or Both Ears? No [email or web address] Information not available 05/28/2023 Legally Blind In One Or Both Eyes? No [email or web address] Information no t available 05/28/2023 Live Alone Or With Others? Alone [email or web address] Information not available 05/28/2023 *Advanced Directive No Information not available 08/23/2017 *Gender ID Female Information no t available 08/23/2017 * Gender Female Information not available 08/23/2017 *Sexual Orientation Heterosexual Information not available 08/23/2017 *Advance Directive On File No Information no t available 08/23/2017 RISK LEVEL - Segmentation Level 5 - High-risk Chronic Dx / Complex Social Needs [email or web address] Information not available 09/07/[address] Information not available 08/27/2017 What Was The Date Of Your Most Recent Tobacco Screening? 11/16/2023 Information not available 11/16/2023 How Many Children Do You Have? 0 [email or web address] Information not available 05/28/2023 What Is Your Relationship Status? Single [email or web address] Information not available 05/28/2023 Seat Belts Used Routinely Yes [email or web address] Information not available 05/28/2023 At What Age Did You Start Smoking Tobacco? 0 Information not available 08/27/2017 How Much Tobacco Do You Smoke? No Hx 1 Daily [email or web address] Information not available 03/04/2021 Sex: Unknown Functional Status Question Answer Note LastModified by Organizat ion Details LastModified Time Do you or have you ever used any other forms of tobacco or nicotine? No Information not available 07/25/2021 What is your level of alcohol consumption? None Information not available 05/28/2023 Do you or have you ever used smokeless tobacco? Never used smokeless tobacco Information not available 01/10/2021 Do you have transportation difficulties? No [email or web address] Information not available 05/28/2023 Are you able to care for yourself independently? 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 Never used electronic cigarettes Information not available 01/10/2021 Mental Status None recorded. Family History Relationship Description Onset Age of this Age Resolved Age Notes LastModified by Organization Details LastModified Time Mother Malignant neoplasm of breast [email or web address] Not available 2017 19:14:21 Mother Essential hypertension Not available 10:55:27 Mother Rheumatoid arthritis Not available 2023 10:55:25 Mother Familial cancer of breast Not available 2023 10:55:25 Mother Osteoporosis Not availa ble 11/16/2023 10:55:25 Mother Hypertensive disorder [email or web address] Not available 2021 10:16:34 Mother Autoimmune disease Not available 2023 10:55:25 Mother Osteoarthrit is Not available 2023 10:55:25 Mother Hypercholest erolemia Not available 2023 10:55:25 Mother Allergy Not available 0 11/16/2023 10:55:25 Mother Anxiety disorder [email or web address] Not available 2021 10:16:34 Father Heart disease TAA Not available 2023 10:55:25 Father Eczema Not available 10:55:25 Sister Rheumatoid arthritis Not available 2023 10:55:25 Sister Migraine Not available 11/16/2023 10:55:25 Sister Osteoarthrit is Not available 2023 10:55:25 Sister Autoimmune disease Not available 2023 10:55:25 Maternal Uncle Harmful pattern of use of alcohol Not available 2023 10:55:25 Maternal Grandmother Familial cancer of breast Not available 2023 10:55:25 Unspecified Relation Celiac disease Not available 2023 10:55:25 Brother Depressive disorder [email or web address] Not available 2021 10:16:34 Notes:no GI cancers Medical History Condition Response Coronary Artery Disease N Other Y Gout N Anxiety/Depression Y Kidney Stones N Diabetes - Non-Insulin N Thyroid Problems N Osteoporosis/Osteopenia N Pacemaker N Hypertension (High Blood Pressure) N Heart Attack (NH) N Ulcers N Headaches/Migraines Y Bleeding Disorder N Arthritis N Heart Problems/Murmur N Claustrophobic N Tuberculosis N Diabetes - Insulin N AIDS/HIV N Cancer N Stroke N Diverticulitis N Asthma Y Polio N GERD/Reflux Y High Cholesterol N Liver Disease N Pulmonary Embolism N Fibromyalgia N Dialysis N Blood Clots (or DVT) N Leg/Foot Ulcers N Kidney Disease N Hiatal Hernia N Gynecological History Statement/Question Response Still having periods? Y Date of Last Mammogram Date of LMP 06/06/2022 Most Recent Bone Density 02/08/2024 Date of Last Pap Smear Age at Menarche 12 Obstetrics History GPAL:G 0 P 0 0 0 0 Type Value Full Term 0 Immunizations Vaccine Type Date Status Note Provider Nam e and Address Organization Details Recorded Time Tdap 9 completed Not Available [facility] 07/19/2019 05:29:41 Influenza, split virus, quadrivalent, preservative 9 completed Not Available [facility] 06/21/2022 16:46:34 Influenza, split virus, quadrivalent, preservative 0 completed Not Available [facility] 06/21/2022 16:46:34 COVID-19, mRNA, LNP-S, PF, 100 mcg/0.5mL dose or 50 mcg/0.25mL dose 1 completed Not Available [facility] 06/21/2022 16:46:34 COVID-19, mRNA, LNP-S, PF, 100 mcg/0.5mL dose or 50 mcg/0.25mL dose 1 completed Not Available [facility] 06/21/2022 16:46:34 Influenza, split virus, quadrivalent, preservative 1 completed Not Available [facility] 06/21/2022 16:46:34 influenza, unspecified formulation 2 completed Not Available [facility] 06/21/2022 16:46:34 Influenza, split virus, quadrivalent, PF 8 completed Not Available [facility] 07/19/2019 05:22:26 Past Encounters Encounter ID Performer Location Encounter Start Date Encounter Closed Date Diagnosis/Indication Diagnosis SNOMED-CT Code Diagnosis ICD10 Code Diagnosis IMO Codes Diagnosis Note [id number] Devan Camargo_[facility] [place]_ 6 [facility],[address]ND [place] [address] 04/23/2017 12:04:57 04/23/2017 12:40:46 Gastroesophageal reflux disease without esophagitis 246330311 K21.9 37 yo woman with PMH long-stand ing GERD, PCOS, anxiety/de pression, migraines here with complaints of GERD symptoms. Longstandi ng symptoms and currently on both PPI BID as well as H2B BID. Unclear whether symptoms reflect acid reflux vs non-acid reflux vs gastropare sis-type symptoms vs other. Given no recent EGD, will plan for repeat at this time. -schedule EGD-cont PPI and H2B for now-check Mg and V87-uehimq r eval pending above, ? pH/impedan ce/GET-RTO after above Abnormal weight gain 161 669586 R63.5 -TSH Polycystic ovaries 54360 008 E28.2 -A1c [id number] Monique Elam RD CDE [place]_6 [place]_ NUTRITION [address] [place] [address] 7 05/04/2017 13:15:14 05/07/2017 11:22:29 Polycystic ovaries 06851635 E28.2 Gastroesop hageal reflux disease 516577931 K21.[id number] CDE [place] [address] [place]_ NUTRITION [address] [place] [address] 7 07/04/2017 11:42:46 07/12/2017 14:25:41 Polycystic ovaries 81969785 E28.2 Gastroesop hageal reflux disease 331568258 K21.9 [id number] Alberto Nugent_ IM_[facility] [address] [place] [address] 7 08/23/2017 14:19:54 08/23/2017 15:37:52 Cough 10185589 R05 No abnormalit ies on pulmonary exam.Albut michelle via nebulizer given x1 with report of mild improvemen t in symptoms.S upportive care incluuding mucinex.Fl ovent bid x2 weeks. Xoponex as needed.Gav e rx for doxy if no improvemen t in the next 3-5 days.Will call for worsening symptoms as discussed with patient. [id number] Alberto Day [place]_ [facility] [address] [place] [address] 08/27/2017 13:53:36 08/27/2017 14:27:58 Acute sinusitis 53260104 J01.90 May start doxy as previously prescribed .Supportiv e care.Will call for worsening symptoms as discussed with patient or if no improvemen t with abx in the next week. [id number] Devan Vargas MD [address]_ GI [address] [place] [address] 11/15/2017 10:55:38 11/15/2017 12:39:16 Gastroesophageal reflux disease without esophagitis 573429330 K21.9 37 yo woman with PMH long-stand ing GERD, PCOS, anxiety/de pression, migraines referred for GERD symptoms here for follow-up. Longstandi ng symptoms and currently on both PPI BID as well as H2B BID. Unclear whether symptoms reflect acid reflux vs non-acid reflux vs gastropare sis-type symptoms vs other. Given no recent EGD, will plan for repeat at this time. -schedule EGD-cont PPI and H2B for now-furthe r eval pending above, ? pH/impedan ce/GET-RTO after above Nonulcer dyspepsia 67225 07 K30 Nausea after what sounds like viral GE. Symptoms overall improving. -trial of maalox-if no improvemen t, can trial carafate [id number] Garrison Donahue APN [address]_ IM_[facility] [address] [place] [address] 03/14/2018 10:40:38 03/14/2018 11:21:01 Chest pain 00511644 R07.9 May be musculoske letal given tenderness on palpation of chest wall.May also be due to decreased esophageal motility; encouraged to f/u with Dr. Vargas for esophageal manometry which he had wanted to order this summer but she had deferred at the time.EKG without evidence of ischemia or infarct. stephane labs. Pain of joint 50369381 M 25.50 Check labs particular ly given strong family history of autoimmune disease. Dyspnea 117561245 R06.00 No abnormalit ies on exam.May need to consider CXR if labs are nonreveali ng and if symptoms persist. [id number] [facility] [place]_ CARD [address] [place] [address] 7 03/14/2018 16:48:34 03/14/2018 16:49:00 [id number] Garrison MCCONNELLN [place]_ IM_FM [address] [place] [address] 7 03/27/2018 14:16:59 03/27/2018 15:00:46 Influenza vaccine needed 9129908984 106 Z23 Dyspnea 937914339 R06.00 Check CXR and echo. Thoracic back pain 58817 [address]54[address] Abarca for physiatry eval. Polycystic ovaries 95610 008 E28.2 Renewed metformin as requested. [id number] Jass Dewey MD [facility] [place]_ ECHO [address] [place], [place] [address] 7 04/03/2018 12:59:44 04/03/2018 13:18:28 [id number] Devan Vargas MD [place]_ GI [address] [place] [address] 04/18/2018 18:33:57 04/19/2018 12:02:21 Gastroesophageal reflux disease without esophagitis 804564002 K21.9 38 yo woman with PMH long-stand ing GERD, PCOS, anxiety/de pression, migraines referred for GERD symptoms here for follow-up. Longstandi ng symptoms and currently on both PPI BID as well as H2B BID. Unclear whether symptoms reflect acid reflux vs non-acid reflux vs gastropare sis-type symptoms vs other. EGD with copious food in stomach. GET wnl. UGIS with esophageal dysmotilit y. Ongoing numerous symptoms despite medical therapy. -refer for manometry- trial of sucralfate -cont PPI/H2B for now-RTO after above Dysphagia 97730355 R13.1 0 -refer for manometry [id number] [facility] [place]_ [facility] 6 [facility],[address] [place] [address] 05/08/2018 13:10:18 05/08/2018 13:38:08 Thoracic back pain 428272290 M54.6 [id number] Mackenzie Abarca MD [facility] [place]_ [facility] 6 [facility],[address] [place] [address] 06/19/2018 13:26:06 06/19/2018 14:07:10 Lumbar discogenic pain 603346197 M51.26 Cervical radiculopathy 34668097 M54.12 [id number] Alberto Chi MD [facility]6 [place]_ IM_[facility] [address] [place] [address],[address] [place] [address] 07/19/2018 14:08:17 07/19/2018 14:40:48 Asthma 866123682 J45.909 Exacerbati on caused by URI.Suppor tive care as above.Will increase Flovent to 2 puffs bid for the next 1-2 weeks.Proa ir prn.Will call if no improvemen t in the next 48 hours. May need to consider oral steroid burst. Acute sinusitis 41608432 J01.90 Likely viral.Supp ortive care including fluids, nasal saline, mucinex.Wi ll start doxy if no improvemen t in the next 3-5 days. [id number] Alberto Chi MD [place]_[address] [place] [address]_ _[place] [address] 07/26/2018 13:41:38 07/26/2018 14:22:41 Cough 84212325 R05 No bleeding noted in the last 2 days; we have agreed to defer CXR for now but will call if symptoms return.Sup portive care. [id number] Ruben Mojica MD [facility] [place]_ GI [address] [place] [address],[address] [place] [address] 11/01/2018 15:07:03 11/04/2018 07:36:18 Gastroesophageal reflux disease 412404981 K21.9 She has chronic gerd treated with ppi and H2 receptor antagonist bid Nonspecifi c esophageal motility disorder 324877689 K22.4 her chest pain and her esophageal spasms on ugi are probably related. Will try low dose diltiazem- she as warned about dizziness from hypotensio n. Abdominal bloating 63781 9008 R14.0 will add align Migraine 45201421 G43.90 9 followed by neurology [id number] Alberto Chi MD [facility]6 [place]_ IM_[facility] [address] [place] [address],[address] [place], [place] [address] 11/14/2018 14:13:12 11/14/2018 14:38:31 Cough 58467099 R05 Likely viral and may also have allergy component. Supportive care including fluids, steam, mucinex, flonase.Co ntinue inhalers.W ill call if no improvemen t in the next 5 days; will then need to start abx therapy. Polycystic ovaries 22681 008 E28.2 Check labs as requested on day 3 of cycle. [id number] Mackenzie Nugenton_ [facility] 6 [facility],[address] [place] [phone] 01/13/2019 13:49:34 01/13/2019 14:02:01 Lumbar discogenic pain 189866620 M51.26 Cervical radiculopathy 52785153 M54.12 [id number] Alberto Camargo_Vanessa Nugent_ IM_[facility] 6 [facility],[address] [place], [place] [address] 02/04/2019 14:38:30 02/04/2019 15:41:52 Administration of diphtheria, pertussis, and tetanus vaccine 372347702 Z23 Tuberculos is screening 950898951 Z11.1 RTO 48 hours to have ppd read. Fatigue 09943141 R53.83 Check labs. Lightheadedness 14954527 8 R42 No neurologic al abnormalit ies on exam.Check labs as above.Will see ENT as scheduled today; reminded her to discuss this current symptom. [id number] Garrett Watkins6 [place]_ ENT 6 [facility],[address] [place] [address] 02/04/2019 15:08:49 02/04/2019 16:05:32 Posterior rhinorrhea 54777537 R09.82 She has chronic mucus in her throat and postnasal drip. I do not see any evidence of active infection on examinatio n. I am unsure as to whether her mucus is coming from her nasal and sinus cavity or from her stomach. I have sent her for CT scan of her sinuses and I will see her back afterwards . Gastroesop hageal reflux disease without esophagitis 842014942 K21.9 Currently being treated with pantoprazo le Dizziness and giddiness 056514313 R42 Followed by neurologaliya morillo States she was unable to tolerate a VNG and is going to go to vestibular rehab therapy Deviated nasal septum 12 9204684 J34.2 Nasal endoscopy shows a deviated septum to the left side. There are no nasal polyps or purulence. The nasopharyn x is clear. The larynx and hypopharyn x is normal. [id number] Alberto Chi MD [place]_D epartment [address] [place] [address] 7 02/06/2019 15:29:43 02/06/2019 15:43:56 Tuberculosis screening 321977888 Z11.1 RTO 48 hours to have ppd read. [id number] Nicole shukla DO [address] [place] [address] 7 04/17/2019 15:50:37 04/17/2019 16:26:37 Viral syndrome 688198761 B34.9 [id number] Garrison Donahue APN [address]_ _[address] [place] [address] 06/02/2019 14:23:57 06/02/2019 14:47:18 Polycystic ovary syndrome 983913230 E28.2 Will increase metformin to 1700mg daily up from 1600mg daily at patient's request.Wi ll see endocrine as scheduled. Upper resp iratory infection 41758327 J06.9 Likely viral.Supp ortive care including fluids, mucinex, and may start ICS for the next 2 weeks and rescue inhaler prn.Will see ENT tomorrow as scheduled. [id number] Garrett Camargo_6 [place]_ ENT [address] [place] [address],[address] [place] [address] 06/03/2019 15:19:39 06/03/2019 15:59:38 Chronic maxillary sinusitis 32901306 J32.0 CT reviewed with her and shows significan t chronic sinusitis involving R>L frontal, ethmoid and maxillary sinuses with severe septal deviation. Had temporary improvemen t in headaches with augmentin. Now has URI on top of chronic sinusitis. Started on Clindamyci n and follow up in 3 weeks. Would consider surgical interventi on if not improving. Deviated nasal septum 12 3800655 J34.2 Migraine 02734793 G43.90 9 [id number] Devan Vargas MD [place]_6 [place]_ GI [address] [address] 06/03/2019 16:03:19 06/06/2019 12:26:20 Gastroesophageal reflux disease without esophagitis 989141237 K21.9 38 yo woman with PMH long-stand ing GERD, PCOS, anxiety/de pression, migraines referred for GERD symptoms here for follow-up. Longstandi ng symptoms and currently on both PPI BID as well as H2B BID. Unclear whether symptoms reflect acid reflux vs non-acid reflux vs gastropare sis-type symptoms vs other. EGD with copious food in stomach. GET wnl. UGIS with esophageal dysmotilit y. Ongoing numerous symptoms despite medical therapy. -consider manometry/ pH/impedan ce-will plan for repeat GET-cont PPI/H2B for now-RTO after above Dysphagia 41487593 R13.1 0 -refer for manometry if patient becomes amenable Regurgitation of food 10 9064154 R19.8 -GET [id number] Garrett Rajput MD [facility]_ [place]_ ENT [address] [place] [address] [facility] [address] 07/09/2019 18:35:19 07/09/2019 19:07:52 Chronic maxillary sinusitis 91397204 J32.0 CT shows significan t chronic sinusitis involving R>L frontal, ethmoid and maxillary sinuses with severe septal deviation. Had temporary improvemen t in headaches and symptoms on antibiotic s but then recurrence of symptoms when finished with meds. Recommende d FESS, septoplast y. Discussed procedure at length with patient including risks. She wishes to see neurologis t to discuss first. Will call if she decides to proceed. Deviated nasal septum 12 0234256 J34.2 [id number] Garrison Donahue APN [place]_ _[address] [place] [address] 10/03/2019 13:02:51 10/03/2019 16:25:49 Cough 71594282 R05 Recent Covid swab was negative although discussed the possibilit y of a false negative result.She is asking if she can see her mother for the upcoming holiday. I voiced my concern that her mother is on immunosupp ressive therapy and should not likely have any visitors at this time given the current Covid 19 outbreak. They will discuss and weigh the risks vs benefits.C ontinue ICS and rescue inhaler.Wi ll call if no improvemen t in her cough in the next 2 weeks or if symptoms worsen as discussed with patient including fever, chills, cp, sob. [id number] Alberto Chi MD [place]_ _[address] [place] [address] 11/14/2019 11:36:15 11/14/2019 13:37:27 Asthma 033121387 J45.909 Flare likely due to reaction to cleaning products used by her neighbors. Advised to keep her apartment as well ventilated as possible.C ontinue pulmicort and albuterol. May add allergra.D iscussed role for prednisone taper; however, the prednisone makes her anxious and causes insomnia. We agreed that I would prescribe a medrol dose pack which she will pharmacy picking technician from the pharmacy and start only if her symptoms worsen.Lior l see Dr. Brown for pulm tolu as she feels that her asthma has not been well controlled since perhaps the beginning of the year.Will call me for worsening symptoms including fever, chills, sob. [id number] David Vieira MD [facility]_ Selvin campos_[place] [address] 12/10/2019 17:09:31 12/11/2019 08:54:20 Asthma 452881083 J45.30 39-year-ol d woman with history of mild intermitte nt asthma, now with symptoms consisting of dyspnea on exertion since an acute episode in August 2019. She had improved with Pulmicort but stopped it because she felt it caused her to wake up in the middle of the night. 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 Testing for COVID-19, including, PCR, antibodies , and CT of the chest at [facility] were all negative. Comorbidit ies include acid reflux, esophageal dysmotilit y, chronic sinusitis and polycystic ovary disease. I am unable to do pulmonary function tests at this time due to the COVID-19 pandemic. I advised the patient to restart the Pulmicort but only 1 time a day, 2 puffs, rather than twice a day. She will continue to use the rescue inhaler as needed. Her symptoms could also be worsened by her chronic sinusitis and she will need to follow up with ENT. I will check a CBC with differenti al (normal on 09/17/2019 at [facility]) as well as an IgE level. Return to office in 2 weeks to assess response to resumption of the Pulmicort. Anxiety 49352110 F41.9 Chronic ma xillary sinusitis 35182651 J32.0 Gastroesop hageal reflux disease 138029732 K21.9 [id number] David Vieira MD [facility]_ Broa [place] [address] 12/31/2019 17:59:08 12/31/2019 18:26:37 Asthma 280461233 J45.30 Anxiety 63555918 F41.9 Chronic ma xillary sinusitis 40918742 J32.0 Gastroesop hageal reflux disease 758952702 K21.9 [id number] David Vieira MD [place]_1 [address]_[place] [address] [place] [address] 02/02/2020 17:16:49 02/10/2020 09:30:34 Asthma 796725562 J45.30 Anxiety 67982695 F41.9 Chronic ma xillary sinusitis 62674365 J32.0 Gastroesop hageal reflux disease 315161589 K21.9 [id number] David Vieira MD [place]_1 030[place] [address] [facility],[place] it[address] [place] [address] 03/11/2020 14:56:46 03/11/2020 17:06:07 Asthma 202341556 J45.30 Anxiety 09792836 F41.9 Chronic ma xillary sinusitis 37694131 J32.0 Gastroesop hageal reflux disease 939030347 K21.9 [id number] David Vieira MD [place]_6 [place]_ PULM 6 [facility],[address] [place], [place] [address] 05/16/2020 13:40:10 05/16/2020 14:37:32 Asthma 477886390 J45.30 Anxiety 86993175 F41.9 Chronic ma xillary sinusitis 57981476 J32.0 Gastroesop hageal reflux disease 650165213 K21.9 [id number] Mackenzie Abarca MD [place]_6 [place]_ [facility] 6 [facility],[address] [place] [address] 05/17/2020 07:50:51 05/17/2020 08:09:39 Cervical radiculopathy 63906124 M54.12 Hip joint painful on movement 896353727 M25.559 [id number] Devan Vargas MD [place]_6 [place]_ GI [address] [place], [place] [address] 05/19/2020 15:45:49 05/19/2020 16:02:56 Gastroesophageal reflux disease without esophagitis 121481773 K21.9 40 yo woman with PMH long-stand ing GERD, PCOS, anxiety/de pression, migraines referred for GERD symptoms here for follow-up. Longstandi ng symptoms and currently on both PPI BID as well as H2B BID. Unclear whether symptoms reflect acid reflux vs non-acid reflux vs gastropare sis-type symptoms vs other. EGD with copious food in stomach. GET wnl. UGIS with esophageal dysmotilit y. Ongoing numerous symptoms despite medical therapy. -plan for repeat esophagram -consider manometry/ pH/impedan ce-conside r repeat GET-cont PPI/H2B for now-RTO after above Dysphagia 51102968 R13.1 0 -refer for manometry if patient becomes amenable Regurgitation of food 10 3280014 R19.8 -consider GET Left lower quadrant pain 814992603 R10.32 Chronic, ? related to endometrio sis. No pain with palpation. -trial of high-dose NSAIDs-obt ain OSH pelvic MRI [id number] Alberto Chi MD [place]_[facility] [place]_ IM_FM [address] [place] [address],[address] [place] [address] 06/23/2020 17:35:02 06/24/2020 10:52:31 Fatigue 18771019 R53.83 Discussed limitation s with phone visit.Will check labs as ordered. Muscle pain 46654335 M79 .10 As above. [id number] Mackenzie Abarca MD [place]_6 [place]_ [facility] [address] [place] [address],[address] [place] [address] 07/12/2020 07:54:00 07/12/2020 08:06:20 Cervical radiculopathy 31590236 M54.12 Hip joint painful on movement 917308045 M25.559 [id number] David Vieira MD [place]_ PULM [address] [place] [address] 07/12/2020 16:02:36 07/12/2020 16:19:52 Asthma 377742550 J45.30 Anxiety 57617177 F41.9 Chronic ma xillary sinusitis 96818290 J32.0 Gastroesop hageal reflux disease [id number] K21.9 [id number] Devan Vargas MD [place]_ GI [address] [place] [address],[address] [place] [address]357[address] 7 08/25/2020 16:56:42 08/27/2020 14:53:15 Gastroesophageal reflux disease without esophagitis [id number] K21.9 40 yo woman with PMH long-stand ing GERD, PCOS, anxiety/de pression, migraines referred for GERD symptoms here for follow-up. Longstandi ng symptoms and currently on both PPI BID as well as H2B BID. Unclear whether symptoms reflect acid reflux vs non-acid reflux vs gastropare sis-type symptoms vs other. EGD with copious food in stomach. GET wnl. Esophagram with reflux, small HH, ? thickened gastric folds. Ongoing numerous symptoms despite medical therapy. -plan for EGD with Rice and esophageal bx-conside r manometry/ pH/impedan ce-conside r repeat GET-cont PPI/H2B for now-RTO after above Dysphagia 53717097 R13.1 0 -as above Regurgitation of food 10 0384226 R19.8 -as above Exposure t o SARS-CoV-2 428060529 Z20.822 [id number] Devan Vargas MD [place]_ GI [address] [place] [address]28[address] 7 09/21/2020 16:42:25 09/21/2020 17:03:09 Gastroesophageal reflux disease without esophagitis 449357589 K21.9 40 yo woman with PMH long-stand ing GERD, PCOS, anxiety/de pression, migraines referred for GERD symptoms here for follow-up. Longstandi ng symptoms and currently on both PPI BID as well as H2B BID. Unclear whether symptoms reflect acid reflux vs non-acid reflux vs gastropare sis-type symptoms vs other. EGD with copious food in stomach. GET wnl. Esophagram with reflux, small HH, ? thickened gastric folds. Ongoing numerous symptoms despite medical therapy. -plan for EGD with Rice and esophageal bx-conside r manometry/ pH/impedan ce-conside r repeat GET-cont PPI/H2B for now-RTO after above Dysphagia 13057164 R13.1 0 -as above Regurgitation of food 10 8304938 R19.8 -as above [id number] David [facility]ieira [facility]_ PULM [address] [place] [address]8711-068 7 10/11/2020 17:38:44 10/11/2020 18:06:13 Asthma 951976012 J45.30 Anxiety 87848112 F41.9 Chronic ma xillary sinusitis 59926742 J32.0 Gastroesop hageal reflux disease 267097517 K21.9 [id number] [facility]_ IM_FM [address] [address] 7 11/10/2020 14:22:51 11/10/2020 15:01:58 Adult health examination 483597696 Z00.00 Iron deficiency 54033735 E61.1 Check labs. Polycystic ovary syndrome 673478048 E28.2 Check labs as ordered on metformin. Nonspecifi c esophageal motility disorder 170707044 K22.4 Will have upcoming endoscopy with GI. Migraine 67990213 G43.90 9 As per neuro. Asthma 072634801 J45.90 9 Stable on current regimen. [id number] Devan Vargas MD [place]_[address] [place] [address]_ GI [address] [place] [place] [address] 36129-068 7 12/13/2020 10:53:48 12/13/2020 11:41:49 Gastroesophageal reflux disease without esophagitis 982497363 K21.9 40 yo woman with PMH long-stand ing GERD, PCOS, anxiety/de pression, migraines referred for GERD symptoms here for follow-up. Longstandi ng symptoms and currently on both PPI BID as well as H2B BID. Unclear whether symptoms reflect acid reflux vs non-acid reflux vs gastropare sis-type symptoms vs other. EGD with copious food in stomach. GET wnl. Esophagram with reflux, small HH, ? thickened gastric folds. On high dose notriptyli ne as well. Ongoing numerous symptoms despite medical therapy. Patient unable to undergo Rice procedure 2/2 nickel allergy and does not wish to undergo pH/impedan ce. -will refer to Dr. Cheng to [place]lu for TIF procedure- change PPI to dexilant Dysphagia 04884834 R13.1 0 -as above Regurgitation of food 10 5581419 R19.8 -as above [id number] Alberto Chi MD [place]_[address] [place] [address]_ IM_FM [address] [place] [address]772-193 7 12/27/2020 15:45:37 12/27/2020 16:43:37 Acute sinusitis 94380147 J01.90 May be viral in etiology but will continue Augmentin which she previously started; will complete 10 day course.Sup portive care including fluids, mucinex, nasal saline. Will call if no improvemen t over the next week despite above therapies or if symptoms worsen as discussed with patient including fever, chills, cp, acute sob. Asthma 642071039 J45.90 9 Exacerbate d due to current URI.Gave rx for medrol dose pack as written above; may start if cough persists or worsens over the next week despite abx therapy for her sinuses.Horowitz s f/u pulm as scheduled. [id number] David Vieira MD [place] [place]_ PULM [address] [place] [address]21-885 7 01/10/2021 16:24:36 01/10/2021 16:54:36 Asthma 054016428 J45.30 Anxiety 95301741 F41.9 Chronic ma xillary sinusitis 47758527 J32.0 Gastroesop hageal reflux disease 642668773 K21.9 [id number] [facility] [place]_ DERM [address] [place] [address]18[address]583 7 03/04/2021 13:27:43 03/04/2021 13:53:16 Eczema 31126885 L30.9 We discussed at length, she used to combined the topical steroid and ketoconazo le. I believe the topical steroid was helping her more and therefore a prescripti on was given today for triamcinol one to use on a p.r.n. basis only avoiding the face, groin, axillary areas. 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 Caf au lait spots 965082385 L81.3 I explained that this lesion is benign, no further interventi on is needed or required. Melanocyti c nevus of trunk 027534000 D22.5 [id number] David Vieira MD [place]_ [place]_ PULM [address] [place] [address] 69638-776 7 04/18/2021 17:10:08 04/18/2021 17:56:48 Asthma 602201343 J45.30 Anxiety 02182021 F41.9 Chronic ma xillary sinusitis 19007437 J32.0 Gastroesop hageal reflux disease 698593275 K21.9 [id number] Devan Vargas MD [place]_ GI 6 [facility],[address] [place] [address] 04/22/2021 08:21:18 04/22/2021 08:51:42 Gastroesophageal reflux disease without esophagitis 193459812 K21.9 41 yo woman with PMH long-stand ing GERD, PCOS, anxiety/de pression, migraines referred for GERD symptoms here for follow-up. Longstandi ng symptoms and currently on both PPI BID as well as H2B BID. Unclear whether symptoms reflect acid reflux vs non-acid reflux vs gastropare sis-type symptoms vs other. EGD with copious food in stomach. GET wnl. Esophagram with reflux, small HH, ? thickened gastric folds. On high dose notriptyli ne as well. Ongoing numerous symptoms despite medical therapy. Patient unable to undergo Rice procedure 2/2 nickel allergy and does not wish to undergo pH/impedan ce. -will refer again to Dr. Cheng to [place] for TIF procedure- change PPI to dexilant Dysphagia 81541118 R13.1 0 -as above Regurgitation of food 10 3634910 R19.8 -as above Rectal pain 32755587 K62 .89 Mild irritation around anus. No pain with DARIUS. -plan for flex sig-trial of sitz bath-trial of TUCKS wipes [id number] Mackenzie Abarca MD [place]_ PhysMedRe hab 6 [facility] [address] [place] [address] 05/17/2021 08:19:17 05/17/2021 08:41:09 Cervical radiculopathy 26880820 M54.12 Cervical spondylosis 387 650476 M47.812 Pain of joint 70507163 M 25.50 [id number] Garrett Rajput MD [place]_ ENT 6 [facility] [address] [place] [address] 05/31/2021 08:21:52 05/31/2021 09:01:03 Chronic maxillary sinusitis 81381463 J32.0 I reviewed her most recent CT with her and it shows significan t chronic sinusitis involving bilateral ethmoid and maxillary sinuses with severe septal deviation and bilateral lizzeth bullosa. Had temporary improvemen t in headaches and symptoms on antibiotic s but then recurrence of symptoms when finished with meds. Recommende d FESS, septoplast y, endoscopic resection of lizzeth bullosa. Discussed procedure at length with patient including risks. Started on doxycyclin e for temporary relief. Instructed her to take probiotics . 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 [id number] David Vieira MD [place] [place]_ PULM 6 [facility],[address] [place] [address] 07/25/2021 17:06:01 07/25/2021 17:38:33 Asthma 055703177 J45.30 Anxiety 82837974 F41.9 Chronic ma xillary sinusitis 53364725 J32.0 Gastroesop hageal reflux disease 443639316 K21.9 [id number] Beau Watts MD [place] [place]_ RHEUM [address] [place] [address],[address] [facility] [address] [place] [address] 08/01/2021 10:16:20 08/02/2021 07:10:05 Anti-nuclear factor detected 031067183 R76.8 She reports a 2-3 year history of nonspecifi c diffuse arthralgia s/myalgias (hands, arms, lower extremitie s) without associated joint swelling, warmth, or prolonged AM stiffness. No associated muscle weakness. She additional ly reports chronic fatigue, migraines, and brain fog. ROS otherwise negative for other manifestat ions of connective tissue disease.La bs were reviewed with the patient today. She has a borderline positive JYOTI with prior tests being negative. ESR/CRP wnl. RF negative. Overall low suspicion for an underlying CTD or inflammato ry arthritis, but will check additional serologies given her symptoms. Alternativ e causes of positive JYOTI were discussed, including prior infections , certain medication s, and comorbid conditions . Additional ly, up to 15% of normal individual s can have a low titer JYOTI.If work-up is otherwise unrevealin g, a centralize d pain syndrome may be considered . She will return in 4-6 weeks for in-office evaluation . Pain of mu ltiple joints 06034244 M25.50 Anxiety 48907343 F41.9 Cervical radiculopathy 76309896 M54.12 Under care of Physiatry, MRI cervical spine results reviewed. [id number] Beau Watts MD [place]_[facility] [place]_ RHEUM 6 [facility],[address] [facility] [address] [place] [address] 10/03/2021 08:36:25 10/03/2021 09:25:51 Anti-nuclear factor detected 806738777 R76.8 She reports a 2-3 year history of nonspecifi c diffuse arthralgia s/myalgias (hands, arms, lower extremitie s) without associated joint swelling, warmth, or prolonged AM stiffness. No associated muscle weakness. She additional ly reports chronic fatigue, migraines, and brain fog. ROS otherwise negative for other manifestat ions of connective tissue disease.La bs were reviewed. She has a borderline positive JYOTI with additional serologies being negative. ESR/CRP wnl. RF/CCP negative. Overall low suspicion for an underlying CTD or inflammato ry arthritis. We discussed that up to 15% of normal individual s may have a positive JYOTI. Alternativ e etiologies for a positive JYOTI include prior infections , aging, comorbid conditions , and certain medication s. Anxiety 05109316 F41.9 Cervical radiculopathy 30422661 M54.12 Under care of Physiatry, MRI cervical spine results reviewed. Fibromyalgia 050008520 M 79.7 Descriptio n of symptoms and presence of multiple tender points on exam are suggestive of fibromyalg ia. Low suspicion for underlying inflammato ry arthritis or connective tissue disease. I educated the patient in regards to variety of causes and clinical manifestat ions of the chronic pain syndrome, fibromyalg ia. I discussed different treatment approaches , importance of good sleep hygiene and regular exercise. I discussed in detail the associatio n between chronic pain syndrome and mood disorders, including anxiety/de pression. I advised patient to start on an exercise treatment plan including aerobic and strengthen ing exercises, aqua therapy, yoga, pilates; may also consider meditation , acupunctur e, massage therapy.He r symptoms are intermitte nt, will start trial of cyclobenza gui 5 mg QHS PRN and meloxicam 15 mg daily PRN. Return as needed. [id number] David Cam[place]_6 [facility]_ PULM [address] [place] [address] 10/31/2021 15:56:51 10/31/2021 16:42:02 Asthma 379020273 J45.30 Anxiety 34074295 F41.9 Chronic ma xillary sinusitis 15217513 J32.0 Gastroesop hageal reflux disease 180698137 K21.9 [id number] Alberto Camargo_[facility] [place]_ IM_FM [address] [place] [address] 7 11/22/2021 14:31:04 11/23/2021 10:15:33 COVID-19 288507739 U07.1 On day 3 of symptoms; reviewed quarantine x5 full days and then may leave her apartment with a well fitting mask for the next 5 days.Suppo rtive care including fluids, rest, tylenol prn, albuterol inhaler prn.Will go to [facility] or ER if she develops acute cp, sob (both of which she currently denies). Pruritic disorder 695735 002 L29.9 Unclear etiology; the only new medication therapy was the monoclonal antibody infusion.S he will continue to monitor for rash; will call if any skin lesions should develop.Wi ll go to the ER if she develops lip or tongue swelling. [id number] Moy Cheng MD [place]_[facility]_GI 1 [facility] [address] [place] [address] 01/25/2022 14:18:33 01/26/2022 07:21:47 Irritable bowel syndrome 95951024 K58.9 Gastroesop hageal reflux disease without esophagitis 579900840 K21.9 Pre-surgery testing 1104 58560 Z01.89 [id number] David Cam[place]_6 [place]_ PULM [address] [place] [address] 7 02/06/2022 16:01:28 02/06/2022 16:20:47 Asthma 188012312 J45.30 Anxiety 76097298 F41.9 Chronic ma xillary sinusitis 74101363 J32.0 Gastroesop hageal reflux disease 322420576 K21.9 [id number] Jaime Gloria MD [facility]_ [place] [address] [place] [address] 03/13/2022 17:41:41 03/13/2022 19:48:56 Anterior chest wall pain 781812379 R07.89 Strain of muscle of chest wall 343832524 S29.011A Costal chondritis 587313 04 M94.0 [id number] Alberto Chi MD [place]_ [facility]_ IM_FM 6 [facility],[address] [place] [address] 7 04/04/2022 14:45:56 04/08/2022 07:01:53 Polycystic ovary syndrome 085296032 E28.2 Renewed metformin as requested. Acute sinusitis 01088795 J01.90 Likely viral.Cont inue otc antihistam ine for possible allergy component. Supportive care including fluids, nasal saline, flonaseWil l start Augmentin if no improvemen t in the next 7-10 days. [id number] Alberto Chi MD [place]_[facility]_ IM_FM [address] [place] [address] 7 06/13/2022 10:53:26 06/13/2022 11:49:44 Anemia 675168875 D64.9 Repeat labs in 1 week. Headache 77879180 R51.9 She will follow up with the neuro/neur osurgery team at [facility] given evidence of CSF leak on MRI of thoracic spine. Chest pain 64883985 R07. 9 Reports symptoms for at least 2 years; reports that she has not had a cardiac evaluation .Although not likely due to a cardiac source, will check EKG and echo and send to cardio for further evaluation . Anxiety 18985111 F41.9 As per psych. [id number] Marcia Mccormick DO [facility]_2 [place]_ DERM 2 [place] [address] 06/20/2022 13:11:01 06/20/2022 14:00:18 Irritant contact dermatitis 358981378 L24.9 -Bilateral forearms-D ermatitis post lidocaine infusion-L ikely hypersensi tivity to cleansing agent-Disc ussed patch testing with patient-Di scussed proper use of topical steroids-R x: Clobetasol ointment BID x 14 days then tacrolimus BID x 6 weeks-Ion dryl lotion PRN and Xyzal PRN for itch-Consi jennifer punch biopsy if no improvemen t Eczema 14234638 L30.9 face, mild-Rx: hydrocorti sone cream BID x 10 days until clear-Tacr olimus ointment for maintenanc e BID-Discus sed gentle skin care with soaps and moisturize rs Ecchymosis 120612319 R58 -Post lidocaine infusion, likely 2/2 to IV-Reassur ance provided-R ecommended Arnica for prevention [id number] Barrington Franco MD [place]_6 [place]_ ECHO [address] [place] [address],[address] [place] [address] 7 06/28/2022 15:19:26 06/28/2022 15:48:24 [id number] Mackenzie Camargo_6 [place]_ PhysMedRe hab 6 [facility],[address] [place] [address] 06/30/2022 13:48:29 06/30/2022 14:07:32 Cervical radiculopathy 12346308 M54.12 Cervical spondylosis 387 965222 M47.812 Pain of joint 44632948 M 25.50 Cerebrospi nal fluid leak 290505813 G96.00 Neck pain 77040208 M54.2 [id number] [facility] [place]_ CARD [address] [place] [address],[address] [place] [address] 7 08/09/2022 12:11:25 08/09/2022 13:20:07 Hypermobility syndrome 63105356 M35.7 she had a csf leak felt to be due to hypermobil itydad had a TAA requiring repairshe is tall - 5'10 agree with genetics eval - pt plans to go to [facility] Family his tory of aneurysm of thoracic aorta 303373294 Z82.49 Dad s/p TAA repair Systolic a nterior movement of mitral valve 363894618 I34.81 no lvot obstructio n noted on echono symptoms c/w lvot obstructio n Chest pain 45015658 R07. 9 symptoms c/w GERD [id number] David Vieira MD [place]_ PULM [address] [place] [address] 7 09/19/2022 12:22:53 09/19/2022 13:56:28 Asthma 476789970 J45.30 Anxiety 16541067 F41.9 Chronic ma xillary sinusitis 78503191 J32.0 Gastroesop hageal reflux disease 421536508 K21.9 [id number] Jass Dewey MD [place]_ CARD [address] [place], [place] [address] 7 01/03/2023 11:20:14 01/03/2023 12:06:03 Family history of aneurysm of thoracic aorta 106419950 Z82.49 Dad s/p TAA repairgene tics eval with mutations of unknown significan ce in 2 genes associated with TAAscheck MRA to fully evaluate the thoracic aorta Orthostati c hypotension 20116686 I95.1 did not tolerate BB in the pasttrial of NaCl tabsdc if develops LE edema [id number] Alberto Chi MD [place]_ IM_FM [address] [place], [place] [address] 7 12/01/2022 15:48:56 12/01/2022 16:22:30 Diarrhea 04973157 R19.7 No abnormalit ies on abdominal exam.Will check labs and stool sample as ordered.If nonreveali ng and symptoms persist, will require referral back to GI for colonoscop y.Will call for worsening symptoms including fever, chills, developmen t of abdominal pain, blood in stool. Recent weight loss 42279 7000 R63.4 Check labs as ordered. Anemia 429737618 D64.9 Likely due to heavy menses as she discussed with her controls engineer.Repeat cbc as ordered above. [id number] Jean Deleon MD [facility]_ GI 2 [place] [address] 12/28/2022 09:23:16 12/28/2022 09:52:32 Chronic diarrhea 820828914 K52.9 12/28/22 I offered her a retrograde ileoscopy with random bx's to rule out low grade IBD or microscopi c colitis. She refused for now.I offered her lactose breath test, she refused for now. A detailed diet instructio n with lactaid strategy given.I also instructed her to try imodium +/- daily fiber. Abnormal weight loss 267 149920 R63.4 12/28/22 See above. May consider abdominal CT later on. Normocytic anemia 246489 002 D64.9 See above. [id number] David Vieira MD [place]_[address] [place] [address]_ PULM [address] [place] [address] 05/28/2023 15:04:10 05/28/2023 16:00:34 Asthma 142331273 J45.30 Anxiety 60084291 F41.9 Chronic ma xillary sinusitis 14620407 J32.0 Gastroesop hageal reflux disease 062686357 K21.9 [id number] Talib Garcias MD [place]_[address] [place] [address]_ IM_FM [address] [place] [address] 11/16/2023 10:44:21 11/16/2023 12:07:55 Adult health examination 592785154 Z00.00 Anemia 409715393 D64.9 Has hx of anemia with last hemoglobin 8.9 from 11/2022.Not currently taking iron.Repea t labs particular ly given that her heavy menses has resolved with Mirena IUD. Hyperlipidemia 72446942 E78.5 Check labs as ordered. HIV screening 429806242 Z11.4 Check labs as requested. Venereal d isease screening 710568184 Z11.3 Check labs as requested. Depressive disorder 7818 9007 F33.1 Renewed lamictal as requested. Has upcoming appt with marian worthy. Anxiety 39836921 F41.9 Renewed meds as requested (see above). Diarrhea 40117569 R19.7 Unclear etiology.H as seen GI providers in the past but has never had a colonoscop y.Declines repeat stool studies today.Chec k labs as ordered.Ad vised to f/u with a GI provider near her home in [facility] for further evaluation including colonoscop y. Migraine 06051496 G43.90 9 Continue current regimen as per neuro. Health Concerns Section Related Observation LastModified by Organization Detai ls LastModified Time None Recorded Concern Status LastModified by Organization Details LastModified Time None Recorded Advance Directives Directive None Recorded Payers Insurance Date Sequence Insurance Name Policy Number Policy Muro Covered Member ID Muro Member ID Guarantor Name [id number] 1 [place] [employer] F Asp[employer] [id number] [employer] 05/27/2023 2 [facility] (MEDICARE REPLACEMENT/AD VANTAGE - HMO) [facility] [employer] Aspir [id number] [employer] Aspir 05/27/2023 3 [place] [employer] Asp[place] [id number] [employer] Aspir 2025 2 [facility] (MEDICAID REPLACEMENT - HMO) [facility] [employer] Aspir [id number] [employer] Aspir 05/27/2023 2 [place] [employer] F Asp[place] [id number] [employer] Aspir 05/27/2023 1 [facility] [employer] Aspir [id number] [employer] Aspir Notes Date Note Type Note Provider Name and Address Organization Details Recorded Time 3 text/html Has had diarrhea for the past 2 months.Returned from [place] mid September; symptoms started while away.Unsure how many bowel movements she has per day but at least 5.No blood in stool.Takes immodium prn.Losing weight; perhaps 10 pounds over the last 2 months.No fever or chills.Reports colonoscopy 2009.Had EGD 11/2020 with erythematous mucosa in antrum. Takes famotidine and pantoprazole.Had blood work this week with controls engineer which showed hemoglobin 9.3 and iron of 31.Her periods are moderately heavy and often passes clots.Her controls engineer would like for her to have a progesterone secreting IUD placed. Garrison Donahue APN 1 [facility], [place], [address], [facility] - .[facility] 12/02/2022 08:33:45 3 text/html 3-d gi opinion visit. She was diagnosed with gerd, negative esophageal manometry, IBS. Never had a colonoscopy though. Now she presents with 2 months of diarrhea and 20 lbs weight loss. Recent stool test showed no infection. Her Hgb dropped from 10-8,8 and it was attributed to heavy menses. 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 bothered by chronic orthostatic symptomsreports she had an abnl tilt in the past and was given metoprolol which worsened symptoms Jass Dewey MD [address] [place], [address], [facility] - .[facility] 01/04/2023 21:04:53 3 text/html This is a 39 year old woman seen in consultation at the request of Garrison Donahue APN, for evaluation of asthma. Patient reports she was diagnosed with asthma y ears ago but she typically would have symptoms and use inhalants only when she has a respiratory infection. On 09/17/2019, the patient developed severe shortness of breath with chest pain. She went to [facility] where there was concern for COVID-19. Testing for COVID-[address] of the chest showed no evidence of pneumonia. CBC and BMP were normal. She was discharged from the emergency room for outpatient follow-up. She was given azithromycin and a course of steroids following discharge, without any benefit. Pulmicort was started for likely asthma. She reports that she took 2 puffs the morning 2 puffs the evening and it was somewhat helpful. She subsequently stopped taking it because she developed sleep maintenance insomnia which she attributed to the Pulmicort. She has a rescue inhaler which she has taken PRN. She continues to have dyspnea on exertion although she is not having chest pain at this time. 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 She denies wheezing. Testing for COVID-19 antibodies on 11/06/19 was negative. She attributes her ongoing symptoms to poorly controlled asthma. Patient denies significant smoking history. She is now referred to me for further evaluation. Patient was seen by me on 12/10/2019. I suggested that she restart her Pulmicort but only 1 time per day, as she needed better control of what might be asthma. Blood work was drawn, including an IgE level which was elevated at 179. CBC was normal although the absolute eosinophil count was slightly elevated. Patient did not resume Pulmicort until about 01/31/2020. She reported that her sleep was no different without the Pulmicort then it was with it. She stated at her visit of 02/02/2020 that her sleep was much better now than before. She was using Pulmicort 2 puffs in the morning and has needed albuterol 1-2 times during the day which she found helpful. Patient stated at her virtual visit of 03/11/2020 that her sleep got worse again. She sometimes wakes up during night with difficulty breathing and wonders if she should go to the emergency room. She was started on Singulair on 05/04/2020 and the Pulmicort was discontinued. PFT's were done on 03/24/2020 and were normal. She was seen by me on 05/16/2020 and she reported that her breathing is improved - she uses the rescue inhalant about 1 time per week. She was seen by me on 10/11/2020 and stated that her breathing is improved, overall. She continued on Singulair with occasional rescue inhalant. Patient reported that her sleep has been better since changing from Pulmicort to Singulair although her breathing might be a little worse. She was seen at [facility] about 12/27/2020 with cough and difficulty breathing and it was felt she had a viral syndrome. Patient subsequently took Augmentin which she had at home. She was seen by Garrison Donahue APN, who continued the Augmentin and prn albuterol and prescribed a Medrol Dosepak. Patient did not take the Medrol because she was afraid it might interfere with her sleep which improved when she started taking the Augmentin. Patient continues to cough and feel short of breath. I spoke to her by telephone on 12/30/2020 and advised her to continue using albuterol inhaler as she has been doing and to fill the prescription for the Medrol Dosepak. I also suggested [id number] cough syrup. The patient was seen by me on 01/10/2021 in a virtual visit and reported that she in fact took the Medrol Dosepak and felt better. However, she did return to [facility] shortly after my phone conversation with her because of persistent symptoms. She was given a prescription for another course of antibiotics, doxycycline, but she states she never filled the prescription because she was feeling better. She is now off steroids. She again wonders if part of her problem is related to sinus disease. She had been seen in the past by Dr. Rajput, ENT, and surgery was considered. Patient was seen by me on 04/18/2021 in a virtual visit. She stated she is now being followed by ENT at [facility], Dr. Baker and he recommended surgery. Patient stated that her breathing was fine overall except that sometimes when she lies down at night, she finds it difficult to breathe until she falls asleep. She does not wake up with any difficulty breathing. She continues on montelukast and rarely needs albuterol. She takes occasional Xanax. She underwent surgery for chronic sinusitis with septoplasty on 08/10/[address] Rajput. She was last seen by me in a virtual visit on 09/19/2022 and was continued on the same therapy and she reported that she is now using the rescue inhaler very rarely, while continuing on Singulair. She sometimes feels shortness of breath with exertion but sometimes shortness of breath comes on spontaneously. She had COVID 19 in October 2021 and made a full recovery. She stated her breathing has been better since she had her septoplasty in August, and she stated that her sleep is better now than before as well. She was advised to continue the same therapy and she now returns for follow-up. She was seen by the [facility] , monitoring group on 04/16/2023. Chest x-ray was normal, chemistries were normal, CBC showed anemia. Spirometry showed severe reduction in FEV1 (1.04, compared to 2.95 on 03/24/2020 at [facility]) which is not consistent with the patient's clinical status. She continues to denies significant shortness of breath and only rarely takes albuterol, not not least 2 months. She continues on montelukast. She is sleeping well. She has migraine headaches and was on Emgality. She feels that her migraines got worse when she was taking the Medrol Dosepak. In further management of her migraine headaches, she was seen at the [facility] in [place], [place] and she was found to have a CSF leak which is felt to be the etiology of her headaches. She was treated with an epidural blood patch done by Interventional Radiology although patient continues to have symptoms. She was evaluated for possible Marfan syndrome and MRA of the thorax showed a normal aorta. She had an echocardiogram which showed mild to moderate mitral regurgitation. She continues to follow with her psychiatrist and is currently on buspirone, Lamictal, Klonopin, and nortryptyline. She takes Lunesta very rarely. She is seeing Dr Vargas for esophageal dysmotility and may be going for additional testing. She is on Protonix and Pepcid and she also is on diltiazem for esophageal spasm. She has received both doses of the COVID vaccine as well as a booster. She is now seeing Dr. Abarca of pain management because of neck pain. MRI showed multilevel herniation and bulging disc in the cervical spine. She was referred for physical therapy. She has polycystic ovary disease and is on metformin. There are no new medical problems since the last visit of 02/06/2022, except as described. Patient remains on the same medications as before, except as described. 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 David Vieira MD [address] [place] [address], [phone], [facility] - .[facility] 05/28/2023 15:41:31 4 text/html Medicare AWV - updated for StandardizationReported by PatientSocial/Behavioral HistoryFor diet and nutrition, patient reportshealthy diet. For medication review, patient reportshas medications at home and can afford medicationsandtaking medications as prescribed and directed. For fracture risk, patient reportsno sudden unexplained fractures. For physical activity, patient reportsdiscussed weightbearing activitiesanddiscussed exercise habits.Mental Status:For depression risk, patient reportsassessed by phq 2/9, see results. For orientation, patient reportsno disorientation to time,no disorientation to date, andno disorientation to place. For concentration and memory, patient reportsno decreased concentrating ability. For speech/motor difficulties, patient reportsno speech difficulties.Functional AbilityFor hearing, patient reportsno loss of hearing. For vision, patient reportsno vision problems. For activities of daily living, patient reportsable to bathe with limited or no assistance,able to contol urination and bowels,able to dress with limited or no assistance,able to feed self with limited or no assistance,able to get out of chair or bed with limited or no assistance,able to groom with limited or no assistance, andable to toilet with limited or no assistance. For instrumental activities of daily living, patient reportsable to do house work with limited or no assistance,able to grocery shop with limited or no assistance,able to manage medications with limited or no assistance,able to manage money with limited or no assistance,able to prepare meals with limited or no assistance, andable to use the phone with limited or no assistance. For home safety, patient reportsworking smoke/co detectors,use of seatbelts, andgood lighting in the home. Here for AWV for Medicare and [employer].Living in [facility].Slowly finding new providers in her new home.Asking for refill on meds until her upcoming scheduled appt with a new psychiatrist.Seeing neuro for headaches; her extensive medication regimen has not been helpful.Went to [place] one year ago; came home with diarrhea which lasted 8 months and contributed to weight loss.Eventually resolved but diarrhea has restarted after a trip to [place] last month.Has lost 10 pounds in the last year.Saw Dr. Deleon 11/2022 for GI evaluation and had a second opinion with another GI provider at [facility] as well.Reports negative stool testing (for infectious sources as well as pancreatic insufficiency) but no colonoscopy performed. Garrison Donahue SBA UNDERWRITER [address] [facility], [place], [id number], [place] - .[facility] 11/16/2023 21:54:39 OBGyn Episode No OBEpisode recorded.
== END ==
LOC: HO.CARD 12:42
PROVIDERS: PCP Nurse Practitioner Family; Visit Provider Psychiatry & Neurology Psychiatry
DX: Z51.81 Encounter for therapeutic drug level monitoring (principal); F31.81 Bipolar II disorder; Z13.1 Encounter for screening for diabetes mellitus
CPT/HCPCS: 36415; 80053; 80335; 82306; 82550; 82607; 82746; 83036; 83090; 83540; 83735; 84425; 84439; 84443; 84702; 85025; 85652; 86780; 93005

== ENCOUNTER → 2025-05-15 12:51 | Outpatient (BNV) | payer MEDICARE, MEDICAID, SELFPAY | PROVIDERS: PCP Nurse Practitioner Family; Visit Provider Internal Medicine Cardiovascular Disease | DX: Z13.6 Encounter for screening for cardiovascular disorders (principal) | CPT/HCPCS: 93010 ==

== ENCOUNTER 2025-05-19 09:15 | Outpatient (RCR) | payer MEDICARE, MEDICAID, SELFPAY ==
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
[2025-05-04 13:09] VITALS: BMI 22.6
--- NOTE | 2025-05-04 13:15 | HO.PHPPROGNO ---
Subjective Subjective Reason For Visit: bipolar Diagnostics Vital Signs (24Hr): BMI result Body Mass Index 22.6 Assessment & Plan Certification I certify that partial hospital treatment is medically necessary due to the symptoms and problems resulting from the patient's mental illness and the failure to treat the patient at the partial hospital level of care would likely result in the patient requiring inpatient psychiatric care which could not be prevented at a less intensive level of care. Total time managing care of this patient today ____ minutes. Discharge Plan Discharge Attending provider: Nicki West Medications: New Caplyta 10.5 mg capsule 10.5 mg PO DAILY 14 Days Qty: 14 0RF Discontinued lurasidone 40 mg tablet 40 mg PO QPM Qty: 15 0RF Rx Instructions: must administer with food (at least 350 calories) No Action famotidine 40 mg Tablet 40 mg PO BID ketorolac 30 mg/mL (1 mL) solution 30 mg IM buspirone 30 mg Tablet 30 mg PO BID Rx Instructions: take in the AM and mid afternoon. bismuth subsalicylate 262 mg Tablet,Chewable 1 tab PO Q1H PRN (Reason: GI issues) Rx Instructions: do not exceed 16 tabs per 24 hrs calcium carbonate 500 mg calcium (1,250 mg) Tablet,Chewable 500 mg PO Rx Instructions: As needed for heartburn. dextromethorphan-guaifenesin 30-600 mg Tablet Extended Release 12 Hr 1 tab PO Q12H PRN (Reason: Congestion) diclofenac potassium 50 mg Powder In Packet 50 mg PO DAILY PRN (Reason: Pain) Rx Instructions: must be taken on empty stomach with water only lamotrigine 200 mg Tablet 400 mg PO BEDTIME levetiracetam 500 mg Tablet 500 mg PO PRN (Reason: Migraine Headache) metformin 850 mg Tablet 850 mg PO DAILY Rx Instructions: Take with dinner metformin 1,000 mg Tablet 1,000 mg PO DAILY Rx Instructions: Take with breakfast. melatonin 5 mg Tablet 5 mg PO BEDTIME PRN (Reason: Insomnia) minocycline 100 mg Capsule See Rx Instructions .ROUTE .COMPLEX Rx Instructions: See the new instructions. rizatriptan 10 mg Tablet 10 mg PO DAILY PRN (Reason: Headache) sumatriptan succinate 6 mg/0.5 mL Cartridge See Rx Instructions .ROUTE .COMPLEX Rx Instructions: Take o.5 ml under the skin at onset of migraine. May repeat in 2 hours as needed. Max 2 doses in 24 hours. ondansetron 8 mg Tablet,Disintegrating 8 mg PO PRN (Reason: Nausea) Rx Instructions: Take as needed for nausea pantoprazole 40 mg Tablet,Delayed Release (Dr/Ec) 40 mg PO BID montelukast 10 mg Tablet 10 mg PO DAILY nortriptyline 50 mg Capsule 100 mg PO BEDTIME naproxen sodium 220 mg Capsule 220 mg PO BID PRN (Reason: Pain) Ubrelvy 100 mg Tablet See Rx Instructions .ROUTE .COMPLEX Rx Instructions: Take one tablet on onset of migraine may repeat once time in 2 hours. dihydroergotamine 0.725 mg/pump act. (4 mg/mL) [place],Non-Aerosol See Rx Instructions .ROUTE .COMPLEX Rx Instructions: 4 mg by nasal route once at start of headache, can repeat in one hour if needed. Max 2 doses in 24 hours and 3 doses a week. clonazepam 0.5 mg Tablet,Disintegrating 0.5 mg PO TID Qty: 30 0RF Rx Instructions: Two times a day as needed once in the morning and once in the afternoon. lurasidone 60 mg tablet 30 mg PO QPM 8 Days Qty: 4 0RF Rx Instructions: must administer with food (at least 350 calories) Stand Alone Forms: Patient Portal Discharge page Print Language: Croatian
[2025-05-04 13:30] VITALS: BP 142/72; PULSE 84; TEMP 37.6
--- NOTE | 2025-05-04 14:23 | PC.ADMIT ---
Patient is a 45 year old single female who self referred to [facility] IOP LOC secondary to sxs of depression with passive SI and anxiety. 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 Patient reports she see's two neurologists one for the migraines and one for the CFS leak. Patient stated, I am on a waiting list for a specialty clinic at [facility] in [place]. I have been communicating with them for months now . Patient is prescribed many different migraine medications (patient reports from the same doctor) in order to try and manage her migraine headaches. Regarding employment patient stated, I work [employer] currently . Patient identified supports stating, Therapist, two close friends, my brother, and I have called crisis a couple of times. Patient reports she is able to reach out to crisis when needed. Patient is alert and oriented x4. She is calm and cooperative. She presented with depressed mood and affect. When asked if having any SI patient stated, Passive SI, Just feel really bad today. No planning. No intent, no solid plan . Patient given a copy of her safety plan if needed. Patient reports she has her neighbor, who is her friend, holding on to her medications as a precaution. Medications updated with patient and patient's pharmacy. She reports taking medications as prescribed. Patient denied using any substances including alcohol or marijuana.
--- NOTE | 2025-05-07 14:49 | HO.IOP ---
Clients case was opened and reviewed in teams.
--- NOTE | 2025-05-08 08:28 | HO.IOP ---
Humaira is not scheduled for program today.
--- NOTE | 2025-05-13 10:09 | PC.NURSE ---
Maria Dolores came to staff and stated she needed to go home as she complained of nausea and not feeling well. I asked her if she could stay for the next group as I am running the next group and we could meet afterwards to complete a nursing admission assessment however she declined stating again she did not feel well and wanted to go home. She left for the day.
--- NOTE | 2025-05-13 12:00 | PC.NURSE ---
Humaira c/o dizziness. BP 109/70 P 84.She reports she always has dizziness at baseline however feels slightly more dizzy today. Stated it could be anxiety or because she did not sleep well last night. She reports starting Caplyta medication last night. Patient stated she thinks she is going to go home after the next group. Feels ok to drive home. Texted Dr. West this morning to review above information.
--- NOTE | 2025-05-14 09:00 | HO.IOP ---
IOP admin, Stacia, informed the team that Humaira will not be in attendance to program today due to a migraine.
--- NOTE | 2025-05-19 20:42 | HO.PHPPROGNO ---
Subjective Subjective Date of Service: 05/19/25 Reason For Visit: bipolar Interim History: Seen upon patient request. Relays having lot of ambivalence about medications shares having history of poor tolerance to many medications. . She ended up stopping the Caplyta due to dizziness a couple of days ago Reports vague symptoms the interim, yesterday day and today says it feels like she is floating but denies any lightheadedness or dizziness, does not feel syncopal but says she can not further explain. She was last doing okay prior to 4 months ago mood has been going up and down. Generally her mood isolates between depression and hypomania. She has difficulty making decisions even when options were laid out front before her and feels disinclined to start back on any medication other neuroleptic it placed. She continues on lamotrigine 400 at bedtime. Previous trials include Abilify, Latuda, Seroquel, Trileptal, Medication Compliance: Intermittent Side effects from medications: Yes (as noted) Attending Groups: Intermittent Review of Systems Acute medical concerns: No Diagnostics Vital Signs (24Hr): BMI result Body Mass Index 22.6 Assessment & Plan Assessment & Plan (1) Bipolar II disorder: Status: Acute Code(s): F31.81 - Bipolar II disorder (2) PTSD (post-traumatic stress disorder): Status: Acute Code(s): F43.10 - Post-traumatic stress disorder, unspecified Plan continue IOP continue regular medications? patient declining to restart either Latuda or Caplyta I certify that the patient needs IOP Services for a minimum of 9 hours per week of therapeutic services. I certify the patient is experiencing symptoms of such intensity that they are unable to be safely treated in a less intensive setting and would otherwise require admission to a more intensive level of care. Patient educated on: diagnosis and medication risk/benefits Informed Consent: understands Reason for contiued partial hosp. stay Substantial Risk for: inability to function and med/psych decompensation Certification I certify that partial hospital treatment is medically necessary due to the symptoms and problems resulting from the patient's mental illness and the failure to treat the patient at the partial hospital level of care would likely result in the patient requiring inpatient psychiatric care which could not be prevented at a less intensive level of care. Total time managing care of this patient today _40___ minutes. Discharge Plan Discharge Attending provider: Nicki West Medications: New mecobalamin (vitamin B12) [B12 Active] 1,000 mcg tablet,chewable 1,000 mcg PO DAILY Qty: 30 2RF Continued famotidine 40 mg Tablet 40 mg PO BID buspirone 30 mg Tablet 30 mg PO BID Rx Instructions: take in the AM and mid afternoon. bismuth subsalicylate 262 mg Tablet,Chewable 1 tab PO Q1H PRN (Reason: GI issues) Rx Instructions: do not exceed 16 tabs per 24 hrs. calcium carbonate 500 mg calcium (1,250 mg) Tablet,Chewable 500 mg PO DAILY PRN (Reason: Heartburn) Rx Instructions: As needed for heartburn OTC diclofenac potassium 50 mg Powder In Packet 50 mg PO Q8H PRN (Reason: Pain) Rx Instructions: Last filled 04/03/25.must be taken on empty stomach with water only. lamotrigine 200 mg Tablet 400 mg PO BEDTIME metformin 850 mg Tablet 850 mg PO DAILY Rx Instructions: Take with dinner metformin 1,000 mg Tablet 1,000 mg PO DAILY Rx Instructions: Take with breakfast. minocycline 100 mg Capsule See Rx Instructions .ROUTE .COMPLEX Rx Instructions: See the new instructions. Patient stated she takes daily not twice a day as prescribed. Last filled 03/27/25 # 60. rizatriptan 10 mg Tablet 10 mg PO DAILY PRN (Reason: Headache) Rx Instructions: Last filled 04/24/25 sumatriptan succinate 6 mg/0.5 mL Cartridge See Rx Instructions .ROUTE .COMPLEX Rx Instructions: Last filled 04/29/25. Take o.5 ml under the skin at onset of migraine. May repeat in 2 hours as needed. Max 2 doses in 24 hours. ondansetron 8 mg Tablet,Disintegrating 8 mg PO Q8H PRN (Reason: Nausea) Rx Instructions: Last filled 04/03/25.Take as needed for nausea pantoprazole 40 mg Tablet,Delayed Release (Dr/Ec) 40 mg PO BID Rx Instructions: Last filled 04/09/25 montelukast 10 mg Tablet 10 mg PO DAILY Rx Instructions: Last filled 04/22/25 nortriptyline 50 mg Capsule 100 mg PO BEDTIME Rx Instructions: Filled April 24, 2025 naproxen sodium 220 mg Capsule 220 mg PO BID PRN (Reason: Pain) Ubrelvy 100 mg Tablet See Rx Instructions .ROUTE .COMPLEX Rx Instructions: Last filled 04/07/25 #28.Take one tablet on onset of migraine may repeat once time in 2 hours. clonazepam [Klonopin] 0.5 mg Tablet 0.5 mg PO TID Rx Instructions: Last filled 04/16/25 Discontinued melatonin 5 mg Tablet 5 mg PO BEDTIME PRN (Reason: Insomnia) lurasidone 40 mg tablet 40 mg PO QPM Qty: 15 0RF Rx Instructions: must administer with food (at least 350 calories) lurasidone [Latuda] 20 mg Tablet 20 mg PO DAILY Rx Instructions: must administer with food (at least 350 calories). Last filled 03/11/25 # 14. Patient stated she is currently taking 20 mg daily at dinnertime. No Action nortriptyline 25 mg Capsule 25 mg PO BEDTIME Rx Instructions: Last filled 04/24/25. Patient stated she only takes 100 mg at HS and has not taken the additional 25 mg ordered. Stand Alone Forms: Patient Portal Discharge page Print Language: Romanian
--- NOTE | 2025-05-25 08:25 | HO.IOP ---
IOP staff member received a voicemail from Humaira requesting that her discharge date be extended because it will be to difficult to come into program this week. IOP staff member reached out to Humaira and left a voicemail reminding her of the policy. IOP staff member encouraged Humaira to contact her back to further review. IOP staff member is waiting on a call back.
--- NOTE | 2025-05-25 14:49 | HO.IOP ---
IOP staff member followed up with Humaira to see if she received her voicemail and if she would be in attendance to program tomorrow. Humaira stated that she did receive the voicemail but didn't have time to return the call. IOP staff member explored with Humaira if she will be in attendance to program for her discharge. Humaira asked if she has to come in for the full day. IOP staff member informed her that we would prefer that she completes the full day of program. Humaira was uncertain if she would be coming into program at this time and stated that it is dependent on how she is feeling due to having bad migraines. IOP staff member was receptive and encouraged her to reach out in the morning to inform the team if she will be in attendance to program tomorrow or not. Humaira appeared receptive.
== END 2025-05-19 23:59 | disposition home or self-care (01) ==
LOC: HO.IOP 09:15
PROVIDERS: Visit Provider Psychiatry & Neurology Psychiatry
DX: F31.81 Bipolar II disorder (principal); F43.10 Post-traumatic stress disorder, unspecified; F50.9 Eating disorder, unspecified; Z79.899 Other long term (current) drug therapy
CPT/HCPCS: 90791; S9480